=== PATIENT | female | born 1955 | race Caucasian/White ===

== ENCOUNTER 2019-12-26 11:04 | Outpatient (RCR) | payer MEDICARE, OTHER | END 2019-12-30 | LOC: PT 11:04 | PROVIDERS: ATTEND Specialist | DX: S33.5XXA Sprain of ligaments of lumbar spine, initial encounter (principal); M54.5 Low back pain; M25.552 Pain in left hip; M25.551 Pain in right hip; M25.652 Stiffness of left hip, not elsewhere classified; M25.651 Stiffness of right hip, not elsewhere classified; M62.81 Muscle weakness (generalized) ==

== ENCOUNTER 2020-01-03 10:26 | Outpatient (RCR) | payer MEDICARE, OTHER | END 2020-01-30 | LOC: PT 10:26 | PROVIDERS: ATTEND Specialist | DX: S33.5XXA Sprain of ligaments of lumbar spine, initial encounter (principal); M25.551 Pain in right hip ==

== ENCOUNTER 2020-06-21 08:05 | Observation (INO) | payer MEDICARE, OTHER ==
[2020-06-21] VITALS (7 sets, daily range): BP systolic 134–143; BP diastolic 56–67
[~2020-06-21] VITALS: Ht 160 cm; Wt 111.1 kg
--- NOTE | 2020-06-21 08:08 | NUR ---
PATIENT CALLED, SHE IS IN BATHROOM
--- NOTE | 2020-06-21 08:28 | NUR ---
DR. WALDRON EVALUATING PATIENT
[2020-06-21] MEDS ORDERED: ONDANSETRON HCL INJ 2MG/ML 2ML 2 MG/ML VIAL IV STA (08:30)
[2020-06-21] MEDS ORDERED: DICYCLOMINE HCL 20 MG/2 ML VIAL IM ONE (08:30)
[2020-06-21] MEDS ORDERED: SODIUM CHLORIDE 0.9% 1000ML 1,000 ML IV STA (08:30)
[2020-06-21] MEDS ORDERED: PANTOPRAZOLE 40 MG 10ML VIAL IV STA (08:30)
--- OUTSIDE RECORDS SUMMARY | 2020-06-21 08:43 | XMS REPORT | Continuity of Care Document ---
Author Author [facility] Organization [facility] Address 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 Operator Name Role Phone NONSTAFF PCP Unavailable Alverto WALKER, Mariela Attphys Unavailable rBie Johnston Attphys Unavailable Annabel NGUYEN, Evert Turner Attphys Jose NGUYEN, Chan Lu Attphys Darryl Diamond MD Attphys Payers Payer Name Policy Type Policy Number Effective Date Expiration Date S abilio MEDICAREMEDICARE PART A AND Bxxxxxxxx[place] 2019 00:00:00 [facility] COMMERCIAL MISCMISC MEDICARE SUPPLEMENTxxxxxxxxxx1-Pr esentCommercial xxxxxxxxxx 2019 00:00:00 [facility] Medicare A & B [id number] [facility] Miscellaneous Ppo [id number] [facility] Problems Condition Name Condition Details Condition Category Status Onset Date Resolution Date Last Treatment Date Treating Clinician Comments Source Polyp of colon Polyp of Colon Problem Active 2020-05-22 00:00:00 [facility] Hiatal hernia Hiatal Hernia Problem Active 2020-05-22 00:00:00 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 Osteopenia Osteopenia Problem Active 2019-08-28 00:00:00 [facility] Type 2 diabetes mellitus with multiple complications T ype 2 Diabetes Mellitus with Multiple Complications Problem Active 2019-03-30 00:00:00 [facility] Left side sciatica Left Side Sciatica Problem Active 2019-01-18 00:00:[address] [facility] Proteinuric nephropathy due to diabetes mellitus Prote inuric Nephropathy Due to Diabetes Mellitus Problem Active 2017-10-18 00:00:00 [facility] Migraine Migraine Problem Active 2017-10-18 00:00:00 [facility] Benign essential hypertension Benign Essential Hypertension Problem Active 2017-10-18 00:00:00 [facility] Elevated liver enzymes level Elevated Liver Enzymes Level Problem Active 2017-10-18 00:00:00 [facility] Disorder of Achilles tendon Disorder of Achilles Tendon Problem Active 2017-06-01 00:00:00 [facility] Allergies, Adverse Reactions, Alerts Allergy Name Allergy Type Status Severity Reaction(s) Onset Date Inacti ve Date Treating Clinician Comments Source Gabapentin Propensity to adverse reactions to drug Active Hallucinations 2020-04-10 00:00:00 [facility] Terbinafine Propensity to adverse reactions to drug Active Hives 2020-04-10 00:00:00 Chidi Chappell t Monosodium Glutamate Propensity to adverse reactions to drug Active Headache 2020-01-01 00:00:00 migraine [facility] Codeine Propensity to adverse reactions to drug Active GI Intolerance 2019-12-05 00:00:00 Chidi Prieto odist Codeine Allergy to substance Active [facility] MONOSODIUM GLUTAMATE Allergy to substance Active Severe Headache [facility] Gabapentin Allergy to substance Active [facility] Terbinafine Allergy to substance Active Hives [facility] Family History Family Member Diagnosis Comments Start Date Stop Date Source Natural brother Dementia [facility] Natural brother Diabetes [facility] Natural father Cancer [facility] Natural mother Cancer [facility] Natural mother Diabetes [facility] Natural mother Lymphoma [facility] Natural sister Breast cancer Chidi Belcher Social History Social Habit Start Date Stop Date Quantity Comments Source Sex Assigned [facility] Exposure to SARS-CoV-2 (event) Not sure Chidi Belcher Cigarettes smoked current (pack per day) - Reported 00:00:00 2020-05-28 00:00:00 Chidi Belcher Cigarette pack-years 2020-05-28 00:00:00 2020-05-28 00:00:00 Chidi Belcher Alcohol intake 2020-05-28 00:00:00 2020-05-28 00:00:00 Ex-drinker (fi nding) Chidi Belcher History of tobacco use 1994-12-05 00:00:00 Current smoker Chidi Belcher Smoking Status Start Date Stop Date Source Former smoker 2020-05-28 00:00:00 2020-05-28 00:00:00 Chidi Belcher Medications Ordered Medication Name Filled Medication Name Start Date Stop Da te Current Medication? Ordering Clinician Indication Dosage Frequency Signature (SIG) Comments Components Source diazePAM (Valium) 5 MG tablet 2020-05-29 00:00:00 2020-05-30 23: 59:00 No Take one tablet one hour prior to the MRI Chidi Belcher albuterol (PROAIR HFA) 90 mcg/actuation inhaler 2020-05-28 15:47:25 2020-05-28 00:00:00 No ProAir HFA 90 mcg/actuation aerosol inhaler Inhale 2 puffs 3 times a day by inhalation route for 30 days. Chidi Belcher TURMERIC ORAL 2020-05-28 15:47:25 2020-05-28 00:00:00 No QD Take by mouth daily. Chidi Belcher naproxen sodium (ALEVE) 220 mg capsule 2020-05-02 8 15:47:25 2020-05-28 00:00:00 No QD Take by mouth daily. Chidi Belcher cycloSPORINE (RESTASIS) 0.05 % ophthalmic emulsion 2020-05-28 15:47:25 2020-05-28 00:00:00 No 1[drp] Q.5D 1 drop 2 (two) times a day. Chidi Belcher SITagliptin (JANUVIA) 100 MG tablet 2020-04-10 09:50:40 Yes 100mg QD Take 100 mg by mouth daily. Chidi dong atenoloL (TENORMIN) 50 MG tablet 2020-04-10 09:50:40 Yes 50mg QD Take 50 mg by mouth daily. Chidi Belcher montelukast (SINGULAIR) 10 mg tablet 2020-04-10 09:50:40 Ye s 10mg QD Take 10 mg by mouth nightly. Chidi villar lisinopril (PRINIVIL) 10 mg tablet 2020-04-10 09:50:40 Yes 10mg QD Take 10 mg by mouth daily. Chidi Belcher hydroCHLOROthiazide (HYDRODIURIL) 12.5 MG tablet 2020-04-10 09:50:40 Yes 12.5mg QD Take 12.5 mg by mouth daily. Chidi Belcher pioglitazone (ACTOS) 45 MG tablet 2020-04-10 09:50:40 Yes 45mg QD Take 45 mg by mouth daily. Chidi Belcher fluticasone propionate (FLONASE) 50 mcg/actuation nasal spra y 2020-04-10 09:50:40 Yes Q.5D 2 (two) times a day. Chidi Belcher SUMAtriptan (IMITREX) 100 MG tablet 2020-04-10 09:50:40 Yes sumatriptan 100 mg tablet TAKE 1 TABLET BY MOUTH FOR HEADACHE. TAKE SECOND TABLET 2 HOURS AFTER FIRST DOSE IF HEADACHE PERSISTS. MAX OF 2 TABLETS IN 24 HOUR PERIOD, AND MAX OF 4 TABLETS IN ONE MONTH Chidi Belcher bimatoprost (LUMIGAN) 0.01 % ophthalmic drops 2020-04-10 09:50:4 0 Yes QD nightly. Chidi moses omeprazole (PriLOSEC) 20 MG capsule 2020-04-10 09:50:40 Yes 20mg QD Take 20 mg by mouth daily. Chidi Belcher multivitamin with minerals tablet 2020-04-10 09:50:40 Yes 1{tbl} QD Take 1 tablet by mouth daily. Chidi christy FISH OIL-DHA-EPA ORAL 2020-04-10 09:50:40 Yes QD Take by mouth daily. Chidi Belcher calcium carbonate (CALTRATE 600 ORAL) 2020-04-10 09:50:40 Y es QD Take by mouth daily. Chidi Belcher cholecalciferol, vitamin D3, 1,000 unit tablet 2020-04-10 09:50: 40 Yes 1000U QD Take 1,000 Units by mouth daily. Chidi Belcher vitamin B complex (B COMPLEX ORAL) 2020-04-10 09:50:40 Yes QD Take by mouth daily. Chidi Belcher ginkgo biloba 60 mg capsule 2020-04-10 09:50:40 Yes QD Take by mouth daily. Chidi Belcher aspirin (ECOTRIN) 81 MG enteric coated tablet 2020-04-10 09:49:2 7 Yes 81mg QD Take 81 mg by mouth nightly. Chidi Belcher aspirin 81 mg poevery other day with food aspirin 81 m g poevery other day with food No aspirin 81 mg poevery other day with food [facility] atenolol 50 mg tablet Take 1 tablet by mouth once mary ellen y atenolol 50 mg tablet Take 1 tablet by mouth once daily No atenolol 50 mg tablet Take 1 tablet by mouth once daily [facility] Practice B Complex 1 po qd B Complex 1 po qd No B Co mplex [address] [facility] diphenoxylate-atropine 2.5 mg-0.025 mg t ablet Take 1 tablet 3 times a day by oral route for 5 days. diphenoxylate-atropine 2.5 mg-0.025 mg t ablet Take 1 tablet 3 times a day by oral route for 5 days. No diphenoxylate- atropine 2.5 mg-0.025 mg tablet Take 1 tablet 3 times a day by oral route [facility] [address] [facility]ionate 50 mcg/actuation nasal spray,suspension USE 1 SPRAY(S) IN EACH NOSTRIL TWICE DAILY FOR 90 DAYS fluticasone propionate 50 mcg/actuation nasal spray,suspension USE 1 SPRAY(S) IN EACH NOSTRIL TWICE DAILY FOR 90 DAYS No fluticasone pr opionate 50 mcg/actuation nasal spray,suspension USE 1 SPRAY(S) IN EACH NOSTRIL TWICE DAILY FOR [address] [facility] Ginkoba 1 po qd Ginkoba 1 po qd No Ginkoba [address] [facility] hydrochlorothiazide 12.5 mg capsule Take 1 capsule ashvin ry day by oral route. hydrochlorothiazide 12.5 mg capsule Take 1 capsule every day by oral route. No hydrochlorothia zide 12.5 mg capsule Take 1 capsule every day by oral route. [facility] mg tablet Take 1 tablet every day by oral route. Januvia 100 mg tablet Take 1 tablet every day by oral route. No Januvia 100 mg tablet Take 1 tablet every day by oral route. [facility] lisinopril 10 mg tablet Take 1 tablet every day by ora l route. lisinopril 10 mg tablet Take 1 tablet every day by oral route. No lisinopril 10 mg tablet Take 1 tablet every day by oral route. [facility] Lumigan 0.01 % eye drops daily Lumigan 0.01 % eye drops daily No Lumigan 0.01 % eye drops daily [facility] montelukast 10 mg tablet TAKE 1 TABLET BY MOUTH ONCE D AILY IN THE EVENING montelukast 10 mg tablet TAKE 1 TABLET BY MOUTH ONCE DAILY IN THE EVENING No montelukast 10 mg tablet TAKE 1 TABLET BY MOUTH ONCE DAILY IN THE EVENING [facility] [place] 3 1000 qd [place] 3 1000 qd No [place] [address] [facility] ondansetron 4 mg disintegrating tablet ondansetron 4 mg disinteg rating tablet No ondansetron [address] [facility] One-A-Day Womens Formula 1 po qd One-A-Day Womens Formula 1 po qd No One-A-Day Womens Formula [address] [facility] pantoprazole 40 mg tablet,delayed releas e Take 1 tablet every day by oral route for 90 days. pantoprazole 40 mg tablet,delayed releas e Take 1 tablet every day by oral route for 90 days. No 1 Q1D pantoprazole 40 mg tablet,delayed release Take 1 tablet every day by oral route for [address] [facility] pioglitazone 45 mg tablet Take 1 tablet every day by o ral route. pioglitazone 45 mg tablet Take 1 tablet every day by oral route. No pioglitazone 45 mg tablet Take 1 tablet every day by oral route. [facility] Restasis 0.05 % eye drops in a dropperette twice daily Restasis 0.05 % eye drops in a dropperette twice daily No Restasis 0.05 % eye drops in a dropperette twice daily [facility] celia sumatriptan 100 mg tablet TAKE 1 TABLET BY MOUTH FOR HEADACHE. TAKE SECOND TABLET 2 HOURS AFTER FIRST DOSE IF HEADACHE PERSISTS. MAX OF 2 TABLETS IN 24 HOUR PERIOD, AND MAX OF 4 TABLETS IN ONE MONTH sumatriptan 100 mg tablet TAKE 1 TABLET BY MOUTH FOR HEADACHE. TAKE SECOND TABLET 2 HOURS AFTER FIRST DOSE IF HEADACHE PERSISTS. MAX OF 2 TABLETS IN 24 HOUR PERIOD, AND MAX OF 4 TABLETS IN ONE MONTH No sumatriptan 10 0 mg tablet TAKE 1 TABLET BY MOUTH FOR HEADACHE. TAKE SECOND TABLET 2 HOURS AFTER FIRST DOSE IF HEADACHE PERSISTS. MAX OF 2 TABLETS IN 24 HOUR PERIOD, AND MAX OF 4 TABLETS IN ONE MONTH [facility] Suprep Bowel Prep Kit 17.5 gram-3.13 gram-1.6 gram ora l solution Suprep Bowel Prep Kit 17.5 gram-3.13 gram-1.6 gram oral solution No Suprep Bowel Prep Kit 17.5 gram-3.13 gram-1.[address] [facility] terbinafine HCl 250 mg tablet terbinafine HCl 250 mg tablet No terbinafine HCl 250 mg tablet [facility] turmeric 1 po qd turmeric 1 po qd No turmer ic [address] [facility] Valium 10 mg tablet Take 1 hour prior to the test Hector um 10 mg tablet Take 1 hour prior to the test No V alium 10 mg tablet Take 1 hour prior to the test [facility] Immun[facility] Ordered Immunization Name Filled Immunization Name Date Status Comments Source pneumococcal conjugate PCV 13 pneumococcal conjugate PCV 13 2016 18:33:[address] [facility] Vital Signs Vital Name Observation Time Observation Value Comments Source Height 2020-06-04 00:00:00 63 [in_i] [facility] Height 2020-04-04 00:00:00 63 [in_i] [facility] Height 2020-02-03 00:00:00 63 [in_i] [facility] BP Diastolic 2019-11-22 00:00:00 84 mm[Hg] [facility] Height 2019-11-22 00:00:00 63 [in_i] [facility] BMI (Body Mass Index) 2019-11-22 00:00:00 45.9 kg/m2 [facility] BP Systolic 2019-11-22 00:00:00 134 mm[Hg] [facility] Body Weight 2019-11-22 00:00:00 259 [lb_av] [facility] BP Diastolic 2019-07-19 00:00:00 80 mm[Hg] [facility] Height 2019-07-19 00:00:00 63 [in_i] [facility] BMI (Body Mass Index) 2019-07-19 00:00:00 45.2 kg/m2 [facility] BP Systolic 2019-07-19 00:00:00 130 mm[Hg] [facility] Body Weight 2019-07-19 00:00:00 255 [lb_av] [facility] BP Diastolic 2019-06-30 00:00:00 74 mm[Hg] [facility] Height 2019-06-30 00:00:00 63 [in_i] [facility] BMI (Body Mass Index) 2019-06-30 00:00:00 45.3 kg/m2 [facility] BP Systolic 2019-06-30 00:00:00 140 mm[Hg] [facility] Body Weight 2019-06-30 00:00:00 256 [lb_av] [facility] BP Diastolic 2019-04-21 00:00:00 82 mm[Hg] [facility] Height 2019-04-21 00:00:00 63 [in_i] [facility] BMI (Body Mass Index) 2019-04-21 00:00:00 45 kg/m2 [facility] BP Systolic 2019-04-21 00:00:00 130 mm[Hg] [facility] Body Weight 2019-04-21 00:00:00 254 [lb_av] [facility] BP Diastolic 2019-03-30 00:00:00 70 mm[Hg] [facility] Height 2019-03-30 00:00:00 63 [in_i] [facility] BMI (Body Mass Index) 2019-03-30 00:00:00 44.5 kg/m2 [facility] BP Systolic 2019-03-30 00:00:00 130 mm[Hg] [facility] Body Weight 2019-03-30 00:00:00 251 [lb_av] [facility] BP Diastolic 2019-02-08 00:00:00 72 mm[Hg] [facility] Height 2019-02-08 00:00:00 63 [in_i] [facility] BMI (Body Mass Index) 2019-02-08 00:00:00 43.6 kg/m2 [facility] BP Systolic 2019-02-08 00:00:00 130 mm[Hg] [facility] Body Weight 2019-02-08 00:00:00 246 [lb_av] [facility] BP Diastolic 2019-02-01 00:00:00 78 mm[Hg] [facility] Height 2019-02-01 00:00:00 63 [in_i] [facility] BMI (Body Mass Index) 2019-02-01 00:00:00 43.8 kg/m2 [facility] BP Systolic 2019-02-01 00:00:00 122 mm[Hg] [facility] Body Weight 2019-02-01 00:00:00 247 [lb_av] [facility] BP Diastolic 2019-01-17 00:00:00 94 mm[Hg] [facility] Height 2019-01-17 00:00:00 63 [in_i] [facility] BMI (Body Mass Index) 2019-01-17 00:00:00 43.6 kg/m2 [facility] BP Systolic 2019-01-17 00:00:00 152 mm[Hg] [facility] Body Weight 2019-01-17 00:00:00 246 [lb_av] [facility] Body height 2020-05-28 15:45:00 160 cm [facility] Body weight 2020-05-28 15:45:00 113.399 kg [facility] BMI 2020-05-28 15:45:00 44.29 kg/m2 [facility] Systolic blood pressure 2020-01-01 13:43:00 118 mm[Hg] [facility] Diastolic blood pressure 2020-01-01 13:43:00 57 mm[Hg] [facility] Heart rate 2020-01-01 13:43:00 56 /min [facility] Body temperature 2020-01-01 13:43:00 36.56 [place] [facility] Respiratory rate 2020-01-01 13:43:00 20 /min [place] [facility] Oxygen saturation in Arterial blood by Pulse oximetry 12-31 13:43:00 97 /min [facility] BP Diastolic 2018-02-02 00:00:00 84 mm[Hg] [facility] Height 2018-02-02 00:00:00 63 [in_i] [facility] BMI (Body Mass Index) 2018-02-02 00:00:00 44.1 kg/m2 [facility] BP Systolic 2018-02-02 00:00:00 132 mm[Hg] [facility] Body Weight 2018-02-02 00:00:00 249 [lb_av] [facility] BP Diastolic 2018-01-19 00:00:00 80 mm[Hg] [facility] Height 2018-01-19 00:00:00 63 [in_i] [facility] BMI (Body Mass Index) 2018-01-19 00:00:00 44.1 kg/m2 [facility] BP Systolic 2018-01-19 00:00:00 138 mm[Hg] [facility] Body Weight 2018-01-19 00:00:00 249 [lb_av] [facility] BP Diastolic 2017-10-18 00:00:00 110 mm[Hg] [facility] Height 2017-10-18 00:00:00 63 [in_i] [facility] BMI (Body Mass Index) 2017-10-18 00:00:00 40.2 kg/m2 [facility] BP Systolic 2017-10-18 00:00:00 164 mm[Hg] [facility] Body Weight 2017-10-18 00:00:00 227 [lb_av] [facility] Procedures Procedure Date / Time Performed Performing Clinician Sourc e XR CERVICAL SPINE COMPLETE 2020-05-28 16:03:31 Johnny Matthews [facility] XR SHOULDER 2+ VW RIGHT 2020-05-28 16:03:15 Johnny Matthews [facility] Egd 2020-05-22 00:00:00 [facility] XR LUMBAR SPINE 2 OR 3 VW 2020-04-10 10:42:53 Aly Garcia [facility] XR HIP 2-3 VIEWS LEFT 2020-04-10 09:42:57 Aly Garcia Anabela ston [facility]ist XR CHEST 2 VW 2020-01-01 15:32:41 Held, Muriel [facility] ECG PRE/POST OP 2020-01-01 14:40:14 Held, Muriel [facility] CBC HEMOGRAM 2020-01-01 14:11:00 Held, Muriel [facility] BASIC METABOLIC PANEL 2020-01-01 14:11:00 Held, Muriel heller [facility]ist PARTIAL THROMBOPLASTIN TIME (PTT) 2020-01-01 14:11:00 Held, Lola Markhamist PROTHROMBIN TIME WITH INR 2020-01-01 14:11:00 Held, Muriel manuel Tao[facility] TYPE AND SCREEN 2020-01-01 14:11:00 Held, Muriel [facility] HEMOGLOBIN A1C 2020-01-01 14:11:00 Keara Blount [facility] ESTIMATED GFR 2020-01-01 14:11:00 Held, Muriel [facility] US PELVIC TRANSABDOMINAL 2019-12-08 09:44:16 Held, Muriel holliston Taoist US PELVIC TRANSVAGINAL 2019-12-08 09:44:16 Held, Muriel de guzman [facility]ist SURGICAL PATHOLOGY REQUEST 2019-12-05 14:16:00 Held, Muriel Belcher PAP IG (IMAGE GUIDED) 2019-12-05 14:14:00 Held, Muriel Huertas on [facility]ist OCCULT BLOOD, STOOL 2019-12-05 09:51:00 Held, Muriel Belcher [place] BIOPSY OF UTERUS LINING 2019-12-05 08:30:00 Held, Muriel Belcher US, upper arm 2019-11-22 00:00:00 [facility] US, chest wall 2019-11-22 00:00:00 [facility] MAMMO, screening, digital, bilateral 2019-06-30 00:00:00 [facility] bone density 2019-06-30 00:00:00 [facility] electrocardiogram 2019-04-21 00:00:00 [facility] MAMMO, screening, bilateral 2019-01-17 00:00:00 [facility] electrocardiogram 2018-01-19 00:00:00 [facility] MAMMO, screening, bilateral 2017-06-17 00:00:00 [facility] X-RAY OF ANKLE 3+ VIEW 2017-05-03 00:00:00 Puma llanes [facility] Eye Surgery 2009-11-01 00:00:00 [facility] Orthopedic Surgery 1988-11-01 00:00:00 [facility] Cervical Laminoplsty 2/> Seg Elma dottie [facility] Hemorrhoidectomy [facility] Appendectomy [facility] ractice Cholecystectomy [facility] ractice Appendectomy [facility] ractice Cholecystectomy (Gall Bladder Removal) [facility] Colonoscopy & Polypectomy [facility] Plan of Care Planned Activity Planned Date Details Comments Source Future Scheduled Test 2020-08-01 00:00:00 INFLUENZA VACCINE [code = INFLUENZA VACCINE] [facility] Future Scheduled Test 2019 00:00:00 65+ PNEUMOCOCCAL V ACCINE (2 of 2 - PPSV23) [code = 65+ PNEUMOCOCCAL VACCINE (2 of 2 - PPSV23)] [facility] Future Scheduled Test 2017-04-01 00:00:00 BREAST CANCER SCRE ENING [code = BREAST CANCER SCREENING] [facility] Future Scheduled Test 2004 00:00:00 COLONOSCOPY SCREEN ING [code = COLONOSCOPY SCREENING] [facility] Future Scheduled Test 2004 00:00:00 SHINGLES VACCINES (#1) [code = SHINGLES VACCINES (#1)] [facility] Scheduled Test 1964 00:00:00 DIABETIC FOOT EXAM [code = DIABETIC FOOT EXAM] [facility] Scheduled Test 1964 00:00:00 URINE MICROALBUMIN [code = URINE MICROALBUMIN] [facility] Scheduled Test 1954 00:00:00 DIABETIC RETINAL E YE EXAM [code = DIABETIC RETINAL EYE EXAM] [facility] Appointment 2020-08-08 07:30:00 Muriel Diamond MD, [address], [place] [address] [facility] Appointment 2020-08-08 07:30:00 Muriel Diamond MD, [address], [place] [address] [facility] Encounters Start Date/Time End Date/Time Encounter Type Admission Type Attendi [facility] Care Department Encounter ID Source 2020-06-04 00:00:00 2020-06-04 00:00:00 Masoud white MD: [id number], [address], [place] [address], Ph. [facility] - VM_HOU_Hob [id number] [facility] 2020-05-28 00:00:00 2020-05-28 00:00:00 Outpatient JOHNNY MATTHEWS [facility] [id number] [facility] 2020-05-28 00:00:00 2020-05-28 00:00:00 Outpatient JOHNNY MATTHEWS [facility] [id number] [facility] 2020-05-28 00:00:00 2020-05-28 00:00:00 Outpatient JOHNNY MATTHEWS [facility] [id number] [facility] 2020-04-10 00:00:00 2020-04-10 00:00:00 Outpatient ALY GARCIA [facility] [id number] [facility] 2020-04-10 00:00:00 2020-04-10 00:00:00 Outpatient ALY GARCIA [facility] [id number] [facility] 2020-04-10 00:00:00 2020-04-10 00:00:00 Outpatient JOHNNY MATTHEWS [facility] [id number] [facility] 2020-04-04 00:00:00 2020-04-04 00:00:00 Masoud white MD: [id number], [facility] [address], [place] [address], Ph. [facility] - VM_HOU_Hobby [id number] [facility] 2020-02-03 00:00:00 2020-02-03 00:00:00 Shravan Fields: [address] [facility], [address], [place] [address], Ph. [facility] - VM[facility]HOU[facility] [id number] [facility] ice 2020-01-03 10:26:00 2020-01-30 23:59:00 Discharged Recurring [facility] [id number] [facility] 2020-01-01 00:00:00 2020-01-01 00:00:00 Outpatient HELD, [facility] [id number] [facility] 2020-01-01 00:00:00 2020-01-01 00:00:00 Outpatient HELD, [facility] [id number] [facility] 2020-01-01 00:00:00 2020-01-01 00:00:00 Outpatient HELD, [facility] [id number] [facility] 2019-12-26 11:04:00 2019-12-30 23:59:00 Discharged Recurring [facility] [id number] [facility] 2019-12-08 00:00:00 2019-12-08 00:00:00 Outpatient HELD, [facility] [id number] [facility] 2019-11-22 00:00:00 2019-11-22 00:00:00 Masodu white MD: [address], [address], [place] [address], Ph. [facility] - VM_HOU_Hobby [id number] [facility] 2019-07-19 00:00:00 2019-07-19 00:00:00 Masoud white MD: [address], [address], [place] [address], Ph. [facility] - [facility] - VFP-Hobby [id number] [facility] Practice 2019-06-30 00:00:00 2019-06-30 00:00:00 Masoud white MD: [address], [address], [place] [address], Ph. [facility] [id number] [facility] 2019-04-21 00:00:00 2019-04-21 00:00:00 Masoud white MD: [address], [address], [place] [address], Ph. [facility] [id number] [facility] 2019-03-30 00:00:00 2019-03-30 00:00:00 Masoud white MD: [address], [address], [place] [address], Ph. [facility] [id number] [facility] 2019-02-08 00:00:00 2019-02-08 00:00:00 Masoud white MD: [address], [place] [address], Ph. [facility] [id number] [facility] 2019-02-01 00:00:00 2019-02-01 00:00:00 Masoud white MD: [address], [place] [address], Ph. [facility] [id number] [facility] 2019-01-17 00:00:00 2019-01-17 00:00:00 Masoud white MD: [address], [address], [place] [address], Ph. [facility] [id number] [facility] 2018-02-02 00:00:00 2018-02-02 00:00:00 Masoud white MD: [address], [address], [place] [address], Ph. [facility] [id number] [facility] 2018-01-19 00:00:00 2018-01-19 00:00:00 Masoud white MD: [address] [address], Ph. [facility] [id number] [facility] 2017-10-18 00:00:00 2017-10-18 00:00:00 Masoud white MD: [address], [address], [place] [address], Ph. [facility] [id number] [facility] Results Test Description Test Time Test Comments Results Result Comments Source ECG Pre/Post Op 2020-01-02 08:13:06 Test Item Ventricular rate (test code = 253) 54 Atrial rate (test code = 255) 54 WV interval (test code = 266) 128 QRSD interval (test code = 260) 92 QT interval (test code = 264) 452 QTC interval (test code = 265) 428 P axis 1 (test code = 267) 40 QRS axis 1 (test code = 268) 43 T wave axis (test code = 270) 26 EKG impression (test code = 273) Sinus bradycardia-Oth erwise normal ECG-No previous ECGs available- Chidi MethodistType and [id number] 17:52:00* Test Item Value Reference Range Interpretation Comments ABO grouping (test code = 883-9) O Rh type (test code = 82910-4) POS Antibody screen (gel) (test code = 890-4) NEG Rhine MethodistBasic metabolic [id number] 16:08:36* Test Item Value Reference Range Interpretation Comments Sodium (test code = 2951-2) 140 135- 148 mEq/L Potassium (test code = 2823-3) 3.8 3.5- 5.0 mEq/L Chloride (test code = 2075-0) 99 98- 112 mEq/L CO2 (test code = 2028-9) 27 24- 31 mEq/L Anion gap (test code = 38828-7) 14@ANIO 7- 15 mEq/L BUN (test code = 3094-0) 17 mg/dL 8-23 Creatinine (test code = 2160-0) 0.82 mg/dL 0.5-0.9 Glucose (test code = 2345-7) 127 mg/dL 65-99 H Calcium (test code = 91000-6) 9.4 mg/dL 8.8-10.2 Lab Interpretation (test code = 64681-9) Abnormal Rhine MethodistEstimated [id number] 16:08:35* Test Item Value Reference Range Interpretation Comments Estimated GFR (test code = 5488) 75 mL/min/1.73 m2 Catergory Units InterpretationG1 >=90 Normal or highG2 60-89 Mildly jsmdltnanP0k 45-59 Mildly to moderately gpuorhstpC8d 30-44 Moderately to severely decreasedG4 15-29 Severely decreasedG5 <15 Kidney failureThe eGFR was calculated using the Chronic Kidney Disease Epidemiology Collaboration (CKD-EPI) equation. Interpretation is based on recommendations of the National Kidney Foundation-Kidney Disease Outcomes Quality Initiative (NKF-KDOQI) published in 2014. Rhine MethodistHemoglobin [id number] 16:03:20* Test Item Value Reference Range Interpretation Comments Hemoglobin A1C (test code = 27345-2) 5.7 % 4-5.6 H HbA1c cutoffs for diagnosing diabetes:4.0% - 5.6% = normal5.7% - 6.4% = increased risk for diabetes (prediabetes)9>=6.5% = iwzhoxac7Nnfbz for glycemic control (ADA 2016)< 7.0% Target for non adults with diabetes. More or less stringent targets may be appropriate for individual patients. <7.5% Target for Children and adolescents with type 1 diabetes. Lab Interpretation (test code = 71342-8) Abnormal Rhine MethodistPartial thromboplastin time, jwgmmewaj2208-18-36 16:02:08* Test Item Value Reference Range Interpretation Comments PTT (test code = 57747-0) 37.5 23.0- 36.0 sec H PTT therapeutic range for unfractionated heparin is61.0-112.0 seconds which corresponds to Anti-Xa0.3-0.7 U/ml. Lab Interpretation (test code = 90534-0) Abnormal Rhine MethodistProthrombin time with [id number] 16:01:50* Test Item Value Reference Range Interpretation Comments Prothrombin time (test code = 5902-2) 13.9 11.5- 14.5 sec INR (test code = 81796-2) 1.1 Th e International Normalized Ratio (INR) is a therapeutic monitoring tool for patients who are stable on oral anticoagulant therapy. An INR of 2.0-3.0 is suggested for deep vein thrombosis/pulmonary embolism. [facility]CBC wasmrkxx9300-18-74 15:38:48* Test Item Value Reference Range Interpretation Comments WBC (test code = 19073-1) 6.51 4.50- 11.00 k/uL RBC (test code = 03839-7) 4.41 m/uL 4.2-5.5 HGB (test code = 718-7) 13.4 g/dL 12-16 HCT (test code = 4544-3) 42.2 % 37-47 MCV (test code = 787-2) 95.7 fL 82-100 MCH (test code = 785-6) 30.4 pg 27-34 MCHC (test code = 786-4) 31.8 g/dL 31-37 RDW - SD (test code = 44046-2) 48.1 fL 37-55 MPV (test code = 86121-9) 11.4 fL 8.8-13.2 Platelet count (test code = 10319-1) 226 150- 400 k/uL Nucleated RBC (test code = 87743-2) 0.00 /100 WBC Rhine MethodistXR Chest 2 [id number] 15:36:19Hm Interface, Radiology Results - 01/01/2020 3:39 PM CSTEXAMINATION: XR CHEST 2 VWCLINICAL HISTORY: 64 years Female Z01.818 Encounter for other preprocedural examination, PREOPCOMPARISON: October 29IMPRESSION:Cardiomediastinal silhouette is unchanged. Atelectasis in the lung bases Age related changes in the osseous structures. Old healed right posterior rib fractures. [facility]-[id number] MethodistPap IG (Image Guided)2019-12-08 17:08:00* Test Item Value Reference Range Interpretation Comments Diagnosis (test code = 70195-8) Comment NEGATIVE FOR INTRAEPITHELIAL LESION OR MALIGNANCY.THIS SPECIMEN WAS RESCREENED PART OF OUR DRY CLEANER HAND PROGRAM. Specimen adequacy (test code = 25844-8) Comment Satisfactory for evaluation. Endocervical component may not bedistinguished in cases of atrophy. Performed by: (test code = 90332-3) Comment Nela Bangura, Rn Immunology ([facility] [place] QC reviewed by: (test code = 8320904) Comment Ana Mccarty, Rn Immunology ([facility] [place]) Comment (test code = 95021-3) . Note: (test code = 2521234) Comment The Pap smear is a screening test designed to aid in the detection ofpremalignant and malignant conditions of the uterine cervix. It is not adiagnostic procedure and should not be used as the sole means of detectingcervical cancer. Both false-positive and false-negative reports do occur. Test methodology (test code = 86275-8) Comment This liquid based ThinPrep(R) pap test was screened with theuse of an image guided system. DEEPIKA (test code = DEEPIKA) Performed at: - [address] [id number] Director: Ethan Rico MD, Phone: [phone] at: - [facility] [address] [place] [id number] Director: Ethan Rico MD, Phone: [phone] Comment: Source.............Cervix;EndocervixSpecimen Comment: No. of containers..01 ThinPrep Vial Rhine MethodistUS Pelvic Rwomkdchihvn8051-17-98 12:36:59Hm Interface, Radiology Results - 12/08/2019 12:40 PM CSTEXAMINATION: US PELVIC TRANSABDOMINAL, US PELVIC TRANSVAGINALCLINICAL HISTORY: N95.0 Postmenopausal bleeding, pmb crampingCOMPARISON: None.TECHNIQUE:Transabdominal and endovaginal sonographic images of the pelvis were obtained. Grayscale, color Doppler, and spectral waveform analysis of the ovarian vessels was performed.FINDINGS:The uterus measures 10.5 x 3.0 x 4.8 cm. The uterus is anteflexed.The endometrial stripe measures 6 mm. Patient is status post bilateral oophorectomy. No suspic ious adnexal masses are seen.There is no fluid in the pelvic cul-de-sac.Impressi on:Mild thickening of the endometrial stripe, which measures 6 mm. In the settin g of postmenopausal bleeding, endometrial biopsy is advised.[id number] ed and approved by rn residential/fellow: Nain bAdi, Misa laureano MD, personally reviewed the images and resident's/fellow's findings and agre e with the final report.[place] MethodistUS Pelvic Wqhflawsumiqtf0262-74-44 12:36:59Hm Interface, Radiology Results - 12/08/2019 12:40 PM CSTEXAMINATION: US PELVIC TRANSABDOMINAL, US PELVIC TRANSVAGINALCLINICAL HISTORY: N95.0 Postmenopausal bleeding, pmb crampingCOMPARISON: None.TECHNIQUE:Transabdominal and endovaginal sonographic images of the pelvis were obtained. Grayscale, color Doppler, and spectral waveform analysis of the ovarian vessels was performed.FINDINGS:The uterus measures 10.5 x 3.0 x 4.8 cm. The uterus is anteflexed.The endometrial stripe measures 6 mm. Patient is status post bilateral oophorectomy. No suspicious adnexal masses are seen.There is no fluid in the pelvic cul-de-sac.Impression:Mild thickening of the endometrial stripe, which measures 6 mm. In the setting of postmenopausal bleeding, endometrial biopsy is advised.[id number] and approved by rn residential/fellow: Nain Abdi, Msia Corea MD, personally reviewed the images and resident's/fellow's findings and agree with the final report. Rhine MethodistOccult blood, [id number] 16:09:00* Test Item Value Reference Range Interpretation Comments Occult blood, stool (test code = 82994-7) Negative Negative DEEPIKA (test code = DEEPIKA) Performed at: - [facility] [address] [id number] Director: Ethan Rico MD, Phone: [phone] Rhine MethodistSurgical pathology [id number] 14:10:00* Test Item Value Reference Range Interpretation Comments Material Submitted (test code = 86984-5) Comment Material submitted: .endometrium - EMB Diagnosis (test code = 62080-4) Comment Diagnosis: SCANT BENIGN ENDOCERVICAL GLANDS AND SQUAMOUS EPITHELIUM.- RARE STRIPS OF ATROPHIC ENDOMETRIAL EPITHELIUM, INSUFFICIENTFOR EVALUATION.O 12/06/2019 1154 Local Electronically signed by: (test code = 20195-9) Comment Electronically signed: .Tanvi Pérez MD, Pathologist Gross description: (test code = 62144-5) Comment Gross description: .1 Container, formalin-filled, labeled with patient identification.EMB:Received in formalin is a 0.2 x 0.1 x 0.1 cm aggregate of mucus andsoft tissue. The specimen is filtered and entirely submitted in P1makxbimr. Minute specimen, may not survive processing./S 12/06/2019 1154 Local CPT: (test code = 32119-1) Comment C PT .047126 DEEPIKA (test code = DEEPIKA) Performed at: [facility] [address] [id number] Director: tEhan Rico MD, Phone: [phone] Rhine MethodistEndometrial mlnzbb4049-29-03 08:30:00Muriel Diamond MD 12/05/2019 2:18 PMEndometrial biopsyDate/Time: 12/05/2019 2:18 PMPerformed by: Muriel Diamond MDAuthorized by: Muriel Diamond MD Consent: Consent obtained: Verbal Consent given by: Patient Procedural risks discussed: Bleeding, failure rate and repeat procedure Patient questions answered: yes Patient agrees, verbalizes understanding, and wants to proceed: yes Indication: Indications: Post-menopausal bleeding Pre-procedure: Prepped with: Betadine Procedure: Procedure performed: Endometrial biopsy Procedure details: endometrial biopsy with Pipelle A bivalve speculum was placed in the vagina: yes Cervix cleaned and prepped: yes Tenaculum applied to cervix: yes Cervix dilated: no Specimen collected: specimen collected and sent to pathology Findings: NormalPost-procedure: Patient observed: yes No com plications: yes Post procedure instructions given to patient: yes Nothing in vagina for 2 weeks: yes Patient tolerated procedure well with no complicat ions: yes Chidi MethodistUrinalysis macro (dipstick) panel - [id number] 12:54:00* Test Item Value Reference Range Interpretation Comments Color Color (test code = Color Color) yellow Color Appearance (test code = Color Appearance) clear Color Glucose (test code = Color Glucose) negative Color Bilirubin (test code = Color Bilirubin) negative Color Ketones (test code = Color Ketones) negative Color Specific [place] (test code = Color Specific [place]) 1.025 Color Blood (test code = Color Blood) trace Color PH (test code = Color PH) 6.0 Color Protein (test code = Color Protein) negative Color Urobilinogen (test code = Color Urobilinogen) 0.2 Color Nitrites (test code = Color Nitrites) negative Color Leukocytes (test code = Color Leukocytes) trace [facility] CAD [id number] 10:20:44 - SCR MAMM BILATERAL DAVI CAD DIGITALBILATERAL DIGITAL SCREENING MAMMOGRAM 3D/2D WITH CAD: 08/15/2019CLINICAL: Asymptomatic. Digital breast tomosynthesis was performed in addition to routine CC and MLO views. Current mammographic images were evaluated by either a ralali M-Vu or a Genmab ImageChecker CAD (computer a ided detection system). Comparison is made to exams dated 06/08/2012 mammogram, 05/30/2012 mammogram, and 05/20/2012 mammogram - [facility]. There a re scattered fibroglandular tissues in both breasts. There are benign calcifica tions in both breasts. There also is a biopsy clip in the right breast. No janice picious mass, architectural distortion, malignant type calcification, or lymph n ode abnormality detected. Breast architecture is stable compared to prior exams .IMPRESSION: BENIGNThere is no mammographic evidence of malignancy. Resume annua l screening mammography in one year. Donna lindsay/penrad:08/02 10:20:44 Entry: - 08/28/2019 14:23:52Imaging Technologist: Dilia OSEI, [facility]-FWletter sent: BIRADS 1-2 Normal Mammogram BI-RADS: 2 Benignvisual [id number] 12:12:00* Test Item Value Reference Range Interpretation Comments R Eye Uncorrected (test code = R Eye Uncorrected) 20/40 L Eye Uncorrected (test code = L Eye Uncorrected) 20/40 [facility] [id number] 15:12:00* Test Item Value Reference Range Interpretation Comments Rate & Rhythm (test code = Rate & Rhythm) 61/ min , rrr QRS (test code = QRS) WV Interval (test code = WV Interval) QRS Duration (test code = QRS Duration) QT Interval (test code = QT Interval) [facility] HospitalUrinalysis macro (dipstick) panel - [id number] 17:31:00Color ColorColor AppearanceColor GlucoseVillage [facility]view Hospital RandalliaGlucose [Mass/volume] in Capillary [id number] 16:44:00* Test Item Value Reference Range Interpretation Comments Blood Glucose: mg/dl (test code = Blood Glucose: mg/dl) 82 [facility] HospitalGlucose [Mass/volume] in Capillary [id number] 16:44:00* Test Item Value Reference Range Interpretation Comments Blood Glucose: mg/dl (test code = Blood Glucose: mg/dl) 82 [facility] HospitalGlucose [Mass/volume] in Capillary [id number] 15:16:00* Test Item Value Reference Range Interpretation Comments Blood Glucose: mg/dl (test code = Blood Glucose: mg/dl) 367 [facility] Hospitalrapid strep group A, [id number] 15:15:00* Test Item Value Reference Range Interpretation Comments Strep (test code = Strep) negative [facility]2019-03-24 22:59:00* Test Item Value Reference Range Interpretation Comments SPIROMETRY: (test code = SPIROMETRY:) PRE FEV1: (test code = FEV1:) FVC: (test code = FVC:) RESTRICTION: (test code = RESTRICTION:) MILD (FVC 65-80% predicted) OBSTRUCTION: (test code = OBSTRUCTION:) NOTES: (test code = NOTES:) [facility]2019-03-24 22:59:00* Test Item Value Reference Range Interpretation Comments SPIROMETRY: (test code = SPIROMETRY:) PRE FEV1: (test code = FEV1:) FVC: (test code = FVC:) RESTRICTION: (test code = RESTRICTION:) MILD (FVC 65-80% predicted) OBSTRUCTION: (test code = OBSTRUCTION:) NOTES: (test code = NOTES:) [facility]Microalbumin/Creatinine [Mass Ratio] in [id number] 15:09:00* Test Item Value Reference Range Interpretation Comments creatinine, random urine (test code = creatinine, random uri ne) 100 mg/dL 20-275 Protein [Mass/volume] in Urine (test code = 2888-6) 0.7 mg/dL se e note: microalbumin/creatinine ratio, random ur ine (test code = microalbumin/creatinine ratio, random urine) 7 mcg/mg creat <30 [facility] HospitalMicroalbumin/Creatinine [Mass Ratio] in [id number] 15:09:00* Test Item Value Reference Range Interpretation Comments creatinine, random urine (test code = creatinine, random uri ne) 100 mg/dL 20-275 Protein [Mass/volume] in Urine (test code = 2888-6) 0.7 mg/dL se e note: microalbumin/creatinine ratio, random ur ine (test code = microalbumin/creatinine ratio, random urine) 7 mcg/mg creat <30 [facility] HospitalHemoglobin A1c/Hemoglobin.total in [id number] 08:16:00* Test Item Value Reference Range Interpretation Comments Hemoglobin A1c/Hemoglobin.total in Blood (test code = 4548-4) 9.3 % of total HGB <5.7 H EAG (mg/dL) (test code = EAG (mg/dL)) 220 (calc) EAG (mmol/L) (test code = EAG (mmol/L)) 12.2 (calc) [facility] panel - Serum or [id number] 08:16:00* Test Item Value Reference Range Interpretation Comments cholesterol, total (test code = cholesterol, total) 158 mg/dL <2 00 HDL cholesterol (test code = HDL cholesterol) 55 mg/dL >50 triglycerides (test code = triglycerides) 161 mg/dL <150 H Cholesterol in LDL [Mass/volume] in Serum or Plasma (t est code = 2089-1) 76 mg/dL (calc) chol/HDLC ratio (test code = chol/HDLC ratio) 2.9 (calc) <5.0 non HDL cholesterol (test code = non HDL cholesterol) 103 mg/dL (ca lc) <130 [facility]Com[facility] 1999 panel - Serum or Plasma 2019-01-18 08:16:00* Test Item Value Reference Range Interpretation Comments glucose (test code = glucose) 232 mg/dL 65-99 H urea nitrogen (BUN) (test code = urea nitrogen (BUN)) 17 mg/dL 7-25 creatinine (test code = creatinine) 0.69 mg/dL 0.50-0.99 eGFR non-afr. burmese (test code = eGFR non-afr. burmese) 92 mL/min/1.73m2 > or = 60 eGFR (test code = eGFR ) 10 7 mL/min/1.73m2 > or = 60 BUN/creatinine ratio (test code = BUN/creatinine ratio) not applica ble 6-22 sodium (test code = sodium) 137 mmol/L 135-146 potassium (test code = potassium) 3.9 mmol/L 3.5-5.3 chloride (test code = chloride) 97 mmol/L 98-110 L carbon dioxide (test code = carbon dioxide) 30 mmol/L 20-32 calcium (test code = calcium) 9.1 mg/dL 8.6-10.4 protein, total (test code = protein, total) 6.9 g/dL 6.1-8.1 albumin (test code = albumin) 4.0 g/dL 3.6-5.1 globulin (test code = globulin) 2.9 g/dL (calc) 1.9-3.7 albumin/globulin ratio (test code = albumin/globulin ratio) 1.4 (calc) 1.0-2.5 bilirubin, total (test code = bilirubin, total) 0.3 mg/dL 0.2-1. 2 alkaline phosphatase (test code = alkaline phosphatase) 128 U/L 33-130 AST (test code = AST) 33 U/L 10-35 ALT (test code = ALT) 31 U/L 6-29 H [facility] Auto Differential panel - [id number] 08:16:00 * Test Item Value Reference Range Interpretation Comments white blood cell count (test code = white blood cell count) 8.9 thousand/uL 3.8-10.8 red blood cell count (test code = red blood cell count) 4.58 million/uL 3.80-5.10 hemoglobin (test code = hemoglobin) 13.9 g/dL 11.7-15.5 hematocrit (test code = hematocrit) 41.3 % 35.0-45.0 MCV (test code = MCV) 90.2 fL 80.0-100.0 MCH (test code = MCH) 30.3 pg 27.0-33.0 MCHC (test code = MCHC) 33.7 g/dL 32.0-36.0 RDW (test code = RDW) 12.1 % 11.0-15.0 platelet count (test code = platelet count) 261 thousand/uL 140-400 MPV (test code = MPV) 12.1 fL 7.5-12.5 absolute neutrophils (test code = absolute neutrophils) 5242 poli ls/uL 3929-4623 absolute lymphocytes (test code = absolute lymphocytes) 2848 poli ls/uL 850-3900 absolute monocytes (test code = absolute monocytes) 507 cells/uL 20 0-950 absolute eosinophils (test code = absolute eosinophils) 214 cells/u L 15-500 absolute basophils (test code = absolute basophils) 89 cells/uL 0- 200 neutrophils (test code = neutrophils) 58.9 % lymphocytes (test code = lymphocytes) 32.0 % monocytes (test code = monocytes) 5.7 % eosinophils (test code = eosinophils) 2.4 % basophils (test code = basophils) 1.0 % [facility] HospitalHemoglobin A1c/Hemoglobin.total in [id number] 08:16:00* Test Item Value Reference Range Interpretation Comments Hemoglobin A1c/Hemoglobin.total in Blood (test code = 4548-4) 9.3 % of total HGB <5.7 H EAG (mg/dL) (test code = EAG (mg/dL)) 220 (calc) EAG (mmol/L) (test code = EAG (mmol/L)) 12.2 (calc) [facility] 1995 panel - Serum or [id number] 08:16:00* Test Item Value Reference Range Interpretation Comments cholesterol, total (test code = cholesterol, total) 158 mg/dL <2 00 HDL cholesterol (test code = HDL cholesterol) 55 mg/dL >50 triglycerides (test code = triglycerides) 161 mg/dL <150 H Cholesterol in LDL [Mass/volume] in Serum or Plasma (t est code = 2089-1) 76 mg/dL (calc) chol/HDLC ratio (test code = chol/HDLC ratio) 2.9 (calc) <5.0 non HDL cholesterol (test code = non HDL cholesterol) 103 mg/dL (ca lc) <130 [facility] HospitalCom[facility] 1999 panel - Serum or Plasma 2019-01-18 08:16:00* Test Item Value Reference Range Interpretation Comments glucose (test code = glucose) 232 mg/dL 65-99 H urea nitrogen (BUN) (test code = urea nitrogen (BUN)) 17 mg/dL 7-25 creatinine (test code = creatinine) 0.69 mg/dL 0.50-0.99 eGFR non-afr. burmese (test code = eGFR non-afr. burmese) 92 mL/min/1.73m2 > or = 60 eGFR (test code = eGFR ) 10 7 mL/min/1.73m2 > or = 60 BUN/creatinine ratio (test code = BUN/creatinine ratio) not applica ble 6-22 sodium (test code = sodium) 137 mmol/L 135-146 potassium (test code = potassium) 3.9 mmol/L 3.5-5.3 chloride (test code = chloride) 97 mmol/L 98-110 L carbon dioxide (test code = carbon dioxide) 30 mmol/L 20-32 calcium (test code = calcium) 9.1 mg/dL 8.6-10.4 protein, total (test code = protein, total) 6.9 g/dL 6.1-8.1 albumin (test code = albumin) 4.0 g/dL 3.6-5.1 globulin (test code = globulin) 2.9 g/dL (calc) 1.9-3.7 albumin/globulin ratio (test code = albumin/globulin ratio) 1.4 (calc) 1.0-2.5 bilirubin, total (test code = bilirubin, total) 0.3 mg/dL 0.2-1. 2 alkaline phosphatase (test code = alkaline phosphatase) 128 U/L 33-130 AST (test code = AST) 33 U/L 10-35 ALT (test code = ALT) 31 U/L 6-29 H [facility] Auto Differential panel - [id number] 08:16:00 * Test Item Value Reference Range Interpretation Comments white blood cell count (test code = white blood cell count) 8.9 thousand/uL 3.8-10.8 red blood cell count (test code = red blood cell count) 4.58 million/uL 3.80-5.10 hemoglobin (test code = hemoglobin) 13.9 g/dL 11.7-15.5 hematocrit (test code = hematocrit) 41.3 % 35.0-45.0 MCV (test code = MCV) 90.2 fL 80.0-100.0 MCH (test code = MCH) 30.3 pg 27.0-33.0 MCHC (test code = MCHC) 33.7 g/dL 32.0-36.0 RDW (test code = RDW) 12.1 % 11.0-15.0 platelet count (test code = platelet count) 261 thousand/uL 140-400 MPV (test code = MPV) 12.1 fL 7.5-12.5 absolute neutrophils (test code = absolute neutrophils) 5242 poli ls/uL 7883-3262 absolute lymphocytes (test code = absolute lymphocytes) 2848 poli ls/uL 850-3900 absolute monocytes (test code = absolute monocytes) 507 cells/uL 20 0-950 absolute eosinophils (test code = absolute eosinophils) 214 cells/u L 15-500 absolute basophils (test code = absolute basophils) 89 cells/uL 0- 200 neutrophils (test code = neutrophils) 58.9 % lymphocytes (test code = lymphocytes) 32.0 % monocytes (test code = monocytes) 5.7 % eosinophils (test code = eosinophils) 2.4 % basophils (test code = basophils) 1.0 % [facility] HospitalGlucose [Mass/volume] in Capillary [id number] 12:36:09* Test Item Value Reference Range Interpretation Comments Blood Glucose: mg/dl (test code = Blood Glucose: mg/dl) 272 [facility] in Capillary [id number] 12:36:09* Test Item Value Reference Range Interpretation Comments Blood Glucose: mg/dl (test code = Blood Glucose: mg/dl) 272 [facility]/volume] in Capillary [id number] 12:36:09* Test Item Value Reference Range Interpretation Comments Blood Glucose: mg/dl (test code = Blood Glucose: mg/dl) 272 [facility] [Mass/volume] in Capillary [id number] 12:36:09* Test Item Value Reference Range Interpretation Comments Blood Glucose: mg/dl (test code = Blood Glucose: mg/dl) 272 [facility]Ne[facility] nuclear IgG Ab [Units/volume] in Serum by [id number] 17:54:00* Test Item Value Reference Range Interpretation Comments SAMANTHA screen, ifa (test code = SAMANTHA screen, ifa) negative negative [facility]Ferritin [Mass/volume] in Serum or [id number] 16:42:00* Test Item Value Reference Range Interpretation Comments ferritin (test code = ferritin) 213 NG/mL 20-288 [facility]Ac[facility] 2000 [facility] - Serum [id number] 11:54:00* Test Item Value Reference Range Interpretation Comments hepatitis A IgM (test code = hepatitis A IgM) non-reactive non-reac tive hepatitis B surface antigen (test code = hepatitis B s urface antigen) non-reactive non-reactive confirmation (test code = confirmation) hepatitis B core antibody (IgM) (test code = hepatitis B core antibody (IgM)) non-reactive non-reactive hepatitis C antibody (test code = hepatitis C antibody) non- reactive non-reactive signal to cut-off (test code = signal to cut-off) 0.01 <1.[address] [facility] binding capacity [facility] - Serum or Plasma 2018-01-20 07:36:00* Test Item Value Reference Range Interpretation Comments iron, total (test code = iron, total) 79 mcg/dL 45-160 iron binding capacity (test code = iron binding capacity) 28 1 mcg/dL (calc) 250-450 % saturation (test code = % saturation) 28 % (calc) 11-50 [facility]Hemoglobin A1c/Hemoglobin.total in [id number] 06:38:00* Test Item Value Reference Range Interpretation Comments hemoglobin A1C (test code = hemoglobin A1C) 8.3 % of total HGB <5.7 H EAG (mg/dL) (test code = EAG (mg/dL)) 192 (calc) EAG (mmol/L) (test code = EAG (mmol/L)) 10.6 (calc) [facility][id number] 00:14:00* Test Item Value Reference Range Interpretation Comments Rate & Rhythm (test code = Rate & Rhythm) 55/min, RRR QRS (test code = QRS) W[place] Interval (test code = WV Interval) QRS Duration (test code = QRS Duration) QT Interval (test code = QT Interval) [facility]Com[facility] 2000 [facility] - Serum or Plasma 2017-10-20 12:34:00* Test Item Value Reference Range Interpretation Comments ALT (test code = ALT) 50 U/L 0-55 AST (test code = AST) 56 U/L 5-34 H BUN (test code = BUN) 15.8 mg/dL 9.8-20.1 alk phos (test code = alk phos) 111 unit/L 40-150 glucose (test code = glucose) 174 mg/dL 70-99 H albumin (test code = albumin) 3.8 g/dL 3.5-5.0 creatinine (test code = creatinine) 0.83 mg/dL 0.57-1.11 eGFR non- (test code = eGFR non-) > 60 >60 total bilirubin (test code = total bilirubin) 0.5 mg/dL 0.2-1.2 eGFR - (test code = eGFR - ) >60 >60 sodium (test code = sodium) 140 mEq/L 136-145 potassium (test code = potassium) 4.5 mEq/L 3.5-5.1 chloride (test code = chloride) 101 mmol/L 98-107 total protein (test code = total protein) 7.4 g/dL 6.4-8.3 calcium (test code = calcium) 9.4 mg/dL 8.4-10.2 CO2 (test code = CO2) 28.5 mmol/L 23.0-31.0 anion gap (test code = anion gap) 11 [facility] - [facility] or Plasma 2017-10-20 12:34:00* Test Item Value Reference Range Interpretation Comments ALT (test code = ALT) 50 U/L 0-55 AST (test code = AST) 56 U/L 5-34 H BUN (test code = BUN) 15.8 mg/dL 9.8-20.1 alk phos (test code = alk phos) 111 unit/L 40-150 glucose (test code = glucose) 174 mg/dL 70-99 H albumin (test code = albumin) 3.8 g/dL 3.5-5.0 creatinine (test code = creatinine) 0.83 mg/dL 0.57-1.11 eGFR non- (test code = eGFR non-) > 60 >60 total bilirubin (test code = total bilirubin) 0.5 mg/dL 0.2-1.2 eGFR - (test code = eGFR - ) >60 >60 sodium (test code = sodium) 140 mEq/L 136-145 potassium (test code = potassium) 4.5 mEq/L 3.5-5.1 chloride (test code = chloride) 101 mmol/L 98-107 total protein (test code = total protein) 7.4 g/dL 6.4-8.3 calcium (test code = calcium) 9.4 mg/dL 8.4-10.2 CO2 (test code = CO2) 28.5 mmol/L 23.0-31.0 anion gap (test code = anion gap) 11 [facility] Differential panel - [id number] 16:56:00 * Test Item Value Reference Range Interpretation Comments WBC (test code = WBC) 10.37 x10*3/?L 3.98-10.04 H RBC (test code = RBC) 4.66 10*12/L 3.93-5.22 hemoglobin (test code = hemoglobin) 14.30 g/dL 11.20-15.70 hematocrit (test code = hematocrit) 42.9 % 34.1-44.9 MCV (test code = MCV) 92.1 fL 80.0-100.0 MCH (test code = MCH) 30.7 pg 25.6-32.2 MCHC (test code = MCHC) 33.3 g/dL 32.2-35.5 RDW-SD (test code = RDW-SD) 41.9 fL 36.4-46.3 platelet count (test code = platelet count) 292.0 k/uL 182.0-369. 0 MPV (test code = MPV) 12.3 fL 7.5-11.5 H neut% (test code = neut%) 61.7 % 34.0-71.1 lymph% (test code = lymph%) 29.0 % 19.3-51.7 mon% (test code = mon%) 6.8 % 4.7-12.5 eos% (test code = eos%) 1.7 % 0.7-5.8 baso% (test code = baso%) 0.8 % 0.1-1.2 neut# (test code = neut#) 6.4 x10*3/?L 1.6-6.1 H lymph# (test code = lymph#) 3.0 x10*3/?L 1.2-3.7 mon# (test code = mon#) 0.7 x10*3/?L 0.2-0.9 eos# (test code = eos#) 0.18 x10*3/?L 0.04-0.36 baso# (test code = baso#) 0.08 x10*3/?L 0.01-0.08 [facility] W Auto Differential panel - [id number] 16:56:00 * Test Item Value Reference Range Interpretation Comments WBC (test code = WBC) 10.37 x10*3/?L 3.98-10.04 H RBC (test code = RBC) 4.66 10*12/L 3.93-5.22 hemoglobin (test code = hemoglobin) 14.30 g/dL 11.20-15.70 hematocrit (test code = hematocrit) 42.9 % 34.1-44.9 MCV (test code = MCV) 92.1 fL 80.0-100.0 MCH (test code = MCH) 30.7 pg 25.6-32.2 MCHC (test code = MCHC) 33.3 g/dL 32.2-35.5 RDW-SD (test code = RDW-SD) 41.9 fL 36.4-46.3 platelet count (test code = platelet count) 292.0 k/uL 182.0-369. 0 MPV (test code = MPV) 12.3 fL 7.5-11.5 H neut% (test code = neut%) 61.7 % 34.0-71.1 lymph% (test code = lymph%) 29.0 % 19.3-51.7 mon% (test code = mon%) 6.8 % 4.7-12.5 eos% (test code = eos%) 1.7 % 0.7-5.8 baso% (test code = baso%) 0.8 % 0.1-1.2 neut# (test code = neut#) 6.4 x10*3/?L 1.6-6.1 H lymph# (test code = lymph#) 3.0 x10*3/?L 1.2-3.7 mon# (test code = mon#) 0.7 x10*3/?L 0.2-0.9 eos# (test code = eos#) 0.18 x10*3/?L 0.04-0.36 baso# (test code = baso#) 0.08 x10*3/?L 0.01-0.08 [facility] A[facility]Hemoglobin.total in [id number] 16:07:00* Test Item Value Reference Range Interpretation Comments A1C w/EAG (test code = A1C w/EAG) 8.8 % 1.0-5.7 H average blood glucose (test code = average blood glucose) 206 mg/dL [facility] A[facility]/Hemoglobin.total in [id number] 16:07:00* Test Item Value Reference Range Interpretation Comments A1C w/EAG (test code = A1C w/EAG) 8.8 % 1.0-5.7 H average blood glucose (test code = average blood glucose) 206 mg/dL [facility]Com[facility] 1999 [facility] - Serum or Plasma 2017-05-06 09:17:00* Test Item Value Reference Range Interpretation Comments ALT (test code = ALT) 25 U/L 0-55 AST (test code = AST) 26 U/L 5-34 BUN (test code = BUN) 14.6 mg/dL 9.8-20.1 alk phos (test code = alk phos) 104 unit/L 40-150 glucose (test code = glucose) 74 mg/dL 70-99 albumin (test code = albumin) 3.8 g/dL 3.5-5.0 creatinine (test code = creatinine) 0.81 mg/dL 0.57-1.11 eGFR non- (test code = eGFR non-) > 60 >60 total bilirubin (test code = total bilirubin) 0.4 mg/dL 0.2-1.2 eGFR - (test code = eGFR - ) >60 >60 sodium (test code = sodium) 142 mEq/L 136-145 potassium (test code = potassium) 4.3 mEq/L 3.5-5.1 chloride (test code = chloride) 100 mmol/L 98-107 total protein (test code = total protein) 7.4 g/dL 6.4-8.3 calcium (test code = calcium) 9.5 mg/dL 8.4-10.2 CO2 (test code = CO2) 28.9 mmol/L 23.0-31.0 anion gap (test code = anion gap) [address] [facility] - Serum or [id number] 09:17:00* Test Item Value Reference Range Interpretation Comments HDL (test code = HDL) 48 mg/dL 40-60 triglyceride (test code = triglyceride) 169 mg/dL 0-149 H VLDL calc. (test code = VLDL calc.) 34 mg/dL cholesterol/HDL ratio (test code = cholesterol/HDL ratio) 4 mg/dL non-HDL cholesterol calc. (test code = non-HDL cholesterol c alc.) 122 mg/dL 0-160 cholesterol (test code = cholesterol) 170 mg/dL 0-199 LDL calc. (test code = LDL calc.) 88 mg/dL 0-130 [facility]Thyrotropin [Units/volume] in Serum or [id number] 09:17:00* Test Item Value Reference Range Interpretation Comments TSH (test code = TSH) 0.980 uIU/mL 0.350-4.940 [facility] 1999 [facility] - Serum or Plasma 2017-05-06 09:17:00* Test Item Value Reference Range Interpretation Comments ALT (test code = ALT) 25 U/L 0-55 AST (test code = AST) 26 U/L 5-34 BUN (test code = BUN) 14.6 mg/dL 9.8-20.1 alk phos (test code = alk phos) 104 unit/L 40-150 glucose (test code = glucose) 74 mg/dL 70-99 albumin (test code = albumin) 3.8 g/dL 3.5-5.0 creatinine (test code = creatinine) 0.81 mg/dL 0.57-1.11 eGFR non- (test code = eGFR non-) > 60 >60 total bilirubin (test code = total bilirubin) 0.4 mg/dL 0.2-1.2 eGFR - (test code = eGFR - ) >60 >60 sodium (test code = sodium) 142 mEq/L 136-145 potassium (test code = potassium) 4.3 mEq/L 3.5-5.1 chloride (test code = chloride) 100 mmol/L 98-107 total protein (test code = total protein) 7.4 g/dL 6.4-8.3 calcium (test code = calcium) 9.5 mg/dL 8.4-10.2 CO2 (test code = CO2) 28.9 mmol/L 23.0-31.0 anion gap (test code = anion gap) [address] [facility] 1995 [facility] - Serum or [id number] 09:17:00* Test Item Value Reference Range Interpretation Comments HDL (test code = HDL) 48 mg/dL 40-60 triglyceride (test code = triglyceride) 169 mg/dL 0-149 H VLDL calc. (test code = VLDL calc.) 34 mg/dL cholesterol/HDL ratio (test code = cholesterol/HDL ratio) 4 mg/dL non-HDL cholesterol calc. (test code = non-HDL cholesterol c alc.) 122 mg/dL 0-160 cholesterol (test code = cholesterol) 170 mg/dL 0-199 LDL calc. (test code = LDL calc.) 88 mg/dL 0-130 [facility]Th[facility]in [Units/volume] in Serum or [id number] 09:17:00* Test Item Value Reference Range Interpretation Comments TSH (test code = TSH) 0.980 uIU/mL 0.350-4.940 [facility]Hemoglobin A1c/Hemoglobin.total in [id number] 16:58:00* Test Item Value Reference Range Interpretation Comments A1C w/EAG (test code = A1C w/EAG) 7.6 % 1.0-5.7 H average blood glucose (test code = average blood glucose) 171 mg/dL [facility] A1c/Hemoglobin.total in [id number] 16:58:00* Test Item Value Reference Range Interpretation Comments A1C w/EAG (test code = A1C w/EAG) 7.6 % 1.0-5.7 H average blood glucose (test code = average blood glucose) 171 mg/dL [facility] W Auto Differential panel - [id number] 08:28:00 * Test Item Value Reference Range Interpretation Comments white blood cell count (test code = white blood cell count) [facility] W Auto Differential panel - [id number] 08:28:00 * Test Item Value Reference Range Interpretation Comments white blood cell count (test code = white blood cell count) [facility]
--- OUTSIDE RECORDS SUMMARY | 2020-06-21 08:43 | XMS REPORT | Clinical Summary ---
Author Author [facility] Organization [facility] Address Unknown Phone Unavailable Care Team Providers Care Anode Crew Supervisor Name Role Phone Masoud Vital MD PCP Allergies Comments Active Allergy Reactions Severity Noted Date Codeine GI 12/05/2019 Intolerance Gabapentin Hallucination 04/10/2020 s migraine Monosodium Glutamate Headache 01/01/2020 Terbinafine Hives 04/10/2020 Medications End Date Status Medication Sig Dispensed Refills Start Date Active SITagliptin (JANUVIA) 100 Take 100 mg 0 MG tablet by mouth daily. Active atenoloL (TENORMIN) 50 MG Take 50 mg by 0 tablet mouth daily. Active montelukast (SINGULAIR) Take 10 mg by 0 10 mg tablet mouth nightly. Active lisinopril (PRINIVIL) 10 Take 10 mg by 0 mg tablet mouth daily. Active hydroCHLOROthiazide Take 12.5 mg 0 (HYDRODIURIL) 12.5 MG by mouth tablet daily. Active pioglitazone (ACTOS) 45 Take 45 mg by 0 MG tablet mouth daily. Active fluticasone propionate 2 (two) times 0 (FLONASE) 50 a day. mcg/actuation nasal spray Active SUMAtriptan (IMITREX) 100 sumatriptan 0 MG tablet 100 mg tablet TAKE 1 TABLET BY MOUTH FOR HEADACHE. TAKE SECOND TABLET 2 HOURS AFTER FIRST DOSE IF HEADACHE PERSISTS. MAX OF 2 TABLETS IN 24 HOUR PERIOD, AND MAX OF 4 TABLETS IN ONE MONTH Active bimatoprost (LUMIGAN) nightly. 0 0.01 % ophthalmic drops Active aspirin (ECOTRIN) 81 MG Take 81 mg by 0 enteric coated tablet mouth nightly. Active omeprazole (PriLOSEC) 20 Take 20 mg by 0 MG capsule mouth daily. Active multivitamin with Take 1 tablet 0 minerals tablet by mouth daily. Active FISH OIL-DHA-EPA ORAL Take by mouth 0 daily. Active calcium carbonate Take by mouth 0 (CALTRATE 600 ORAL) daily. Active cholecalciferol, vitamin Take 1,000 0 D3, 1,000 unit tablet Units by mouth daily. Active vitamin B complex (B Take by mouth 0 COMPLEX ORAL) daily. Active ginkgo biloba 60 mg Take by mouth 0 capsule daily. 05/28/2020 Discontinued (Patient Report ed) albuterol (PROAIR HFA) 90 ProAir HFA 90 0 mcg/actuation inhaler mcg/actuation aerosol inhaler Inhale 2 puffs 3 times a day by inhalation route for 30 days. 05/28/2020 Discontinued (Patient Report ed) TURMERIC ORAL Take by mouth 0 daily. 05/28/2020 Discontinued (Patient Report ed) naproxen sodium (ALEVE) Take by mouth 0 220 mg capsule daily. 05/28/2020 Discontinued (Patient Report ed) cycloSPORINE (RESTASIS) 1 drop 2 0 0.05 % ophthalmic (two) times a emulsion day. 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 12/28/2019 Encounters Care Team Description Date Type Specialty Mariela Del Toro MA Tear of right rotator cuff, unspecified tear extent, unspecified whether traumatic (Primary Dx); Cervical radiculopathy 06/20/2020 Orders Only Orthopedic Surgery Brie Johnston Cervical radiculopathy (Primary Dx); Lumbar radiculopathy 06/17/2020 Orders Only Orthopedic Surgery Brie Johnston 05/29/2020 Orders Only Orthopedic Surgery Brie Johnston Lumbar radiculopathy (Primary Dx) 05/29/2020 Orders Only Orthopedic Surgery Johnny Jin Jr., MD Tear of right rotator cuff, unspecified tear extent, unspecified whether traumatic (Primary Dx); Cervical radiculopathy; Balance disorder 05/28/2020 Office Visit Orthopedic Surgery 05/28/2020 Travel Mariela Del Toro MA Right shoulder pain, unspecified chronic ity (Primary Dx) 05/27/2020 Orders Only Orthopedic Surgery Johnny Jin Jr., MD Croley, Jay Sawyer, MD Lumbar radiculopathy (Primary Dx) 04/10/2020 Office Visit Orthopedic Surgery Brie Johnston Pain of left hip joint (Primary Dx) 04/09/2020 Orders Only Orthopedic Surgery 04/09/2020 Travel 04/04/2020 Travel Held, Muriel Andrews MD 01/05/2020 Telephone Obstetrics and Gyne cology Held, Muriel Andrews MD Preop testing 01/01/2020 Hospital Radiology Encounter Held, Muriel Andrews MD Pre-op testing (Primary Dx) 01/01/2020 Pre-Admit Pre-Admission Testi ng Testing Appointment Held, Muriel Andrews MD PMB (postmenopausal bleeding) (Primary D x) 01/01/2020 Office Visit Obstetrics and Gyne cology Held, Muriel Andrews MD Preop testing (Primary Dx) 01/01/2020 Transcribe Access Orders Held, Muriel Andrews MD 12/18/2019 Telephone Obstetrics and Gyne cology Held, Muriel Andrews MD PMB (postmenopausal bleeding) 12/08/2019 Hospital Radiology Encounter Held, Muriel Andrews MD 12/06/2019 Telephone Obstetrics and Gyne cology Held, Muriel Andrews MD Special screening for malignant neoplasm s, colon (Primary Dx); Encounter for routine gynecologic examination in Medicare patient; PMB (postmenopausal bleeding) 12/05/2019 Office Visit Obstetrics and Gyne cology after 06/21/2019 Family History Medical History Relation Name Comments Dementia Brother Primo Parisi Jr Diabetes Brother Primo Parisi Jr Cancer Father [place] Cancer Mother Caroline Parisi Diabetes Mother Caroline Parisi Lymphoma Mother Caroline Parisi Breast cancer Sister Relation Name Status Comments Brother Primo Parisi Jr Father [place] Mother Caroline Parisi Sister Social History Date Tobacco Use Types Packs/Day Years Used Quit: 12/05/1994 Former Smoker Cigarettes 0.25 10 Smokeless Tobacco: Never Used Tobacco Cessation: Counseling Given: No Drinks/Week oz/Week Comments Alcohol Use 2 Glasses of wine 2 Cans of beer 0 Shots of liquor 0 Standard drinks or equivalent 4.0 Not Currently Sex Assigned at Date Recorded Female 12/28/2019 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 Date Recorded COVID-19 Exposure Response 05/28/2020 3:36 PM CDT In the last month, have you been in contact with No / Unsure someone who was confirmed or suspected to have Coronavirus / COVID-19? Last Filed Vital Signs Reading Time Taken Comments Vital Sign 118/57 01/01/2020 1:43 PM COPPING MACHINE OPERATOR Blood Pressure 56 01/01/2020 1:43 PM COPPING MACHINE OPERATOR Pulse 36.6 C (97.8 F) 01/01/2020 1:43 PM COPPING MACHINE OPERATOR Temperature 20 01/01/2020 1:43 PM COPPING MACHINE OPERATOR Respiratory Rate 97% 01/01/2020 1:43 PM COPPING MACHINE OPERATOR Oxygen Saturation - - Inhaled Oxygen Concentration 113 kg (250 lb) 05/28/2020 3:45 PM CDT Weight 160 cm (5' 3") 05/28/2020 3:45 PM CDT Height 44.29 05/28/2020 3:45 PM CDT Body Mass Index Plan of Treatment Care Team Description Date Type Specialty Muriel Diamond MD [address] [facility] [address] [place], [place] [id number] 08/08/2020 Hospital Obstetrics and Gyne cology Encounter HeldMuriel MD [address] [facility] [address] [place], [place] [id number] HYSTEROSCOPY, WITH DILATION AND CURETTAG E OF UTERUS 08/08/2020 Surgery Obstetrics and Gyne cology Health Maintenance Due Date Last Done Comments DIABETIC RETINAL EYE EXAM 1954 DIABETIC FOOT EXAM 1964 URINE MICROALBUMIN 1964 COLONOSCOPY SCREENING 2004 SHINGLES VACCINES (#1) 2004 BREAST CANCER SCREENING 04/01/2017 04/01/2015 65+ PNEUMOCOCCAL VACCINE 2019 10/19/2017 (2 of 2 - PPSV23) INFLUENZA VACCINE 08/01/2020 Procedures Comments Procedure Name Priority Date/Time Associated Diag nosis XR CERVICAL SPINE Routine 05/28/2020 Right should er pain, COMPLETE 4:03 PM CDT unspecified chronic ity XR SHOULDER 2+ VW RIGHT Routine 05/28/2020 Right shoulder pain, 4:03 PM CDT unspecified chronicity XR LUMBAR SPINE 2 OR 3 VW Routine 04/10/2020 Lumb ar radiculopathy 10:42 AM CDT XR HIP 2-3 VIEWS LEFT Routine 04/10/2020 Pain of left hip joint 9:42 AM CDT XR CHEST 2 VW Routine 01/01/2020 Preop testing 3:32 PM COPPING MACHINE OPERATOR ECG PRE/POST OP Routine 01/01/2020 Pre-op testing 2:40 PM COPPING MACHINE OPERATOR ESTIMATED GFR Routine 01/01/2020 2:11 PM COPPING MACHINE OPERATOR HEMOGLOBIN A1C Routine 01/01/2020 Pre-op testing 2:11 PM COPPING MACHINE OPERATOR TYPE AND SCREEN Routine 01/01/2020 Pre-op testing 2:11 PM COPPING MACHINE OPERATOR PROTHROMBIN TIME WITH INR Routine 01/01/2020 Pre- op testing 2:11 PM COPPING MACHINE OPERATOR PARTIAL THROMBOPLASTIN Routine 01/01/2020 Pre-op testing TIME (PTT) 2:11 PM COPPING MACHINE OPERATOR BASIC METABOLIC PANEL Routine 01/01/2020 Pre-op t esting 2:11 PM COPPING MACHINE OPERATOR CBC HEMOGRAM Routine 01/01/2020 Pre-op testing 2:11 PM COPPING MACHINE OPERATOR US PELVIC TRANSVAGINAL Routine 12/08/2019 PMB (po stmenopausal 9:44 AM COPPING MACHINE OPERATOR bleeding) US PELVIC TRANSABDOMINAL Routine 12/08/2019 PMB ( postmenopausal 9:44 AM COPPING MACHINE OPERATOR bleeding) SURGICAL PATHOLOGY Routine 12/05/2019 PMB (postme nopausal REQUEST 2:16 PM COPPING MACHINE OPERATOR bleeding) PAP IG (IMAGE GUIDED) Routine 12/05/2019 Encounte r for routine 2:14 PM COPPING MACHINE OPERATOR gynecologic examination in Medicare patient OCCULT BLOOD, STOOL Routine 12/05/2019 Special sc reening for 9:51 AM COPPING MACHINE OPERATOR malignant neoplasms, colon [place] BIOPSY OF UTERUS Routine 12/05/2019 PMB (postm enopausal LINING 8:30 AM COPPING MACHINE OPERATOR bleeding) after 06/21/2019 Results * XR Cervical Spine Complete (05/28/2020 4:03 PM CDT) Specimen Impressions Performed At facet arthritis noted, and degenerative disc disease, as [facility] noted, Prior c1/2 wiring noted Narrative Performed At [facility] Comparison films date: none FINDINGS: 4 views were obtained of th e cervical spine demonstrate no Acute fracture, dislocation. Evidence o f prior posterior wire fixation of posterior elements. The coronal alignment is normal. There is no suggestion of scoliosis. Sagittal alignment is normal. There i s no suggestion of spondylolisthesis. Degenerative discs are seen. Worst at C 5/6 and 6/7. Facet OA is suggested bilaterally. The bones appear moderately mineralized . Osseous lesion(s) is not seen. Performing Organization Address [facility] Ph one Number [facility] [address] [place] [address] * XR Shoulder 2+ Vw Right (05/28/2020 4:03 PM CDT) Specimen Impressions Performed At Negative shoulder. [facility] Narrative Performed At [facility] FINDINGS: Four views were obtained of the right shoulder. The bones are intact and anatomically aligned. The ac romioclavicular and glenohumeral joints appear normal. The bones, joints , and soft tissues appear normal. The visualized lung is clear. Performing Organization Address [facility] Ph one Number [facility] [address] [place] [address] * XR Lumbar Spine 2 Or 3 Vw (04/10/2020 10:42 AM CDT) Specimen Narrative Performed At [facility] 2v lumbar spine. I personally ordered a nd reviewed the imaging. Indication: pain, assessment of degener ative disc disease X-rays demonstrate small listhesis of L 4 on L5. Disc heights maintained. Performing Organization Address [facility] Ph one Number [facility] [address] [place] [address] * XR Hip 2-3 View Left (04/10/2020 9:42 AM CDT) Specimen Narrative Performed At [facility] AP pelvis, 2v left hip. I personally or dered and reviewed the imaging. Indication: pain, assessment of joint d isease X-rays demonstrate no significant degen erative joint disease, fracture, or dislocation. Mild acetabular profunda. Performing Organization Address [facility] one Number [facility] [address] [place] [address] * XR Chest 2 Vw (01/01/2020 3:32 PM COPPING MACHINE OPERATOR) Specimen Narrative Performed At EXAMINATION: XR CHEST 2 VW [facility] CLINICAL HISTORY: 64 years Female Z01 .818 Encounter for other preprocedural examination, PREOP COMPARISON: October 29 IMPRESSION: Cardiomediastinal silhouette is unchang ed. Atelectasis in the lung bases Age related changes in the osseous stru ctures. Old healed right posterior rib fractures . [facility]-[id number] Procedure Note Interface, Radiology Results Incoming - 01/01/2020 3:39 PM COPPING MACHINE OPERATOR EXAMINATION: XR CHEST 2 VW CLINICAL HISTORY: 64 years Female Z01.818 Encounter for other preprocedural examination, PREOP COMPARISON: October 29 IMPRESSION: Cardiomediastinal silhouette is unchanged. Atelectasis in the lung bases Age related changes in the osseous structures. Old healed right posterior rib fractures . [facility]-[id number] Performing Organization Address [facility] one Number [facility] [address] [place] [address] * ECG Pre/Post Op (01/01/2020 2:40 PM COPPING MACHINE OPERATOR) Ventricular 54 [facility] rate Atrial rate 54 [facility] NJ interval 128 [facility] QRSD interval 92 [facility] QT interval 452 [facility] QTC interval 428 [facility] P axis 1 40 [facility] QRS axis 1 43 [facility] T wave axis 26 [facility] EKG impression Sinus bradycardia-Otherwise [facility] MUSE normal ECG-No previous ECGs available- Specimen Narrative Performed At This result has an attachment that is n ot available. Performing Organization Address [facility] one Number [facility] [address] [place] [address] * Estimated GFR (01/01/2020 2:11 PM COPPING MACHINE OPERATOR) Pathologist [facility] Estimated GFR 75 mL/min/1.73 m2 [place] Comment: YAZIDI [facility] HOSPITAL Interpretation G1 >=90 Normal or high G2 60-89 Mildly decreased G3a 45-59 Mildly to moderately decreased G3b 30-44 Moderately to severely decreased G4 15-29 Severely decreased G5 <15 Kidney failure The eGFR was calculated using the Chronic Kidney Disease Epidemiology Collaboration (CKD-EPI) equation. Interpretation is based on recommendations of the National Kidney Foundation-Kidney Disease Outcomes Quality Initiative (NKF-KDOQI) published in 2014. Specimen Plasma specimen Performing Organization Address City/[facility] Ph one Number [facility] DEPARTMENT OF [address] [place] [address] PATHOLOGY AND [facility] MEDICINE [address] * Partial thromboplastin time, activated (01/01/2020 2:11 PM COPPING MACHINE OPERATOR) Pathologist [facility] PTT 37.5 (H) 23.0 - 36.0 sec [place] Comment: YAZIDI PTT therapeutic range for HOSPITAL unfractionated heparin is 61.0-112.0 seconds which corresponds to Anti-Xa 0.3-0.7 U/ml. Specimen Blood Performing Organization Address [facility] Ph one Number [facility] DEPARTMENT OF [address] [place] [address] PATHOLOGY AND [facility] MEDICINE [address] * Prothrombin time with INR (01/01/2020 2:11 PM COPPING MACHINE OPERATOR) [facility] Prothrombin 13.9 11.5 - 14.5 sec [facility] INR 1.1 [place] Comment: YAZIDI The International Normalized HOSPITAL Ratio (INR) is a therapeutic monitoring tool for patients who are stable on oral anticoagulant therapy. An INR of 2.0-3.0 is suggested for deep vein thrombosis/pulmonary embolism. Specimen Blood Performing Organization Address [facility] Ph one Number [facility] DEPARTMENT OF [address] [place] [address] PATHOLOGY AND GENOMIC MEDICINE [address] * CBC hemogram (01/01/2020 2:11 PM COPPING MACHINE OPERATOR) [facility] WBC 6.51 4.50 - 11.00 k/uL [facility] RBC 4.41 4.20 - 5.50 m/uL [facility] HGB 13.4 12.0 - 16.0 g/dL [facility] HCT 42.2 37.0 - 47.0 % [facility] MCV 95.7 82.0 - 100.0 fL [facility] MCH 30.4 27.0 - 34.0 pg [facility] MCHC 31.8 31.0 - 37.0 g/dL [facility] RDW - SD 48.1 37.0 - 55.0 fL [facility] MPV 11.4 8.8 - 13.2 fL [facility] Platelet count 226 150 - 400 k/uL [facility] Nucleated RBC 0.00 /100 WBC [facility] Specimen Blood Performing Organization Address City/[facility] Ph one Number [facility] DEPARTMENT OF [address] [place] [address] PATHOLOGY AND GENOMIC MEDICINE [address] * Type and screen (01/01/2020 2:11 PM COPPING MACHINE OPERATOR) Pathologist [facility] ABO grouping O [facility] Rh type POS [facility] Antibody screen NEG [place] (gel) [facility] Specimen Blood Performing Organization Address City/[facility] Ph one Number [facility] DEPARTMENT OF [address] [place] [address] PATHOLOGY AND GENOMIC MEDICINE [address] * Hemoglobin A1c (01/01/2020 2:11 PM COPPING MACHINE OPERATOR) Pathologist [facility] Hemoglobin A1C 5.7 (H) 4.0 - 5.6 % [place] Comment: YAZIDI HbA1c cutoffs for diagnosing HOSPITAL diabetes: 4.0% - 5.6% = normal 5.7% - 6.4% = increased risk for diabetes (prediabetes)9 >=6.5% = diabetes9 Goals for glycemic control (ADA 2016) < 7.0% Target for non adults with diabetes. More or less stringent targets may be appropriate for individual patients. <7.5% Target for Children and adolescents with type 1 diabetes. Specimen Blood Performing Organization Address City/[facility] Ph one Number [facility] DEPARTMENT OF [address] [place] [address] PATHOLOGY AND GENOMIC MEDICINE [address] * Basic metabolic panel (01/01/2020 2:11 PM COPPING MACHINE OPERATOR) Sodium 140 135 - 148 mEq/L [facility] Potassium 3.8 3.5 - 5.0 mEq/L [facility] Chloride 99 98 - 112 mEq/L [facility] CO2 27 24 - 31 mEq/L [facility] Anion gap 14@ANIO 7 - 15 mEq/L [facility] BUN 17 8 - 23 mg/dL [facility] Creatinine 0.82 0.50 - 0.90 mg/dL [facility] Glucose 127 (H) 65 - 99 mg/dL [facility] Calcium 9.4 8.8 - 10.2 mg/dL [facility] Specimen Plasma specimen Performing Organization Address City/State/Zipcode Ph one Number [facility] DEPARTMENT OF [address] [place] [address] PATHOLOGY AND GENOMIC MEDICINE [address] * US Pelvic Transabdominal (12/08/2019 9:44 AM COPPING MACHINE OPERATOR) Specimen Narrative Performed At EXAMINATION: US PELVIC TRANSABDOMINAL, US PELVIC TR ANSVAGINAL [facility] CLINICAL HISTORY: N95.0 Postmenopausa l bleeding, pmb cramping COMPARISON: None. TECHNIQUE:Transabdominal and endovagina l sonographic images of the pelvis were obtained. Grayscale, color Doppler, and spectral waveform analysis of the ovarian vessels was performed. FINDINGS: The uterus measures 10.5 x 3.0 x 4.8 cm . The uterus is anteflexed. The endometrial stripe measures 6 mm. Patient is status post bilateral oophor ectomy. No suspicious adnexal masses are seen. There is no fluid in the pelvic cul-de- sac. Impression: Mild thickening of the endometrial stri pe, which measures 6 mm. In the setting of postmenopausal bleeding, endometrial biopsy is advised. [id number] Dictated and approved by radiology resi dent/fellow: Artur Gomez M.D. I, Misa Corea MD, personally revie wed the images and resident's/fellow's findings and agree with the final repor t. Procedure Note Interface, Radiology Results Incoming - 12/08/2019 12:40 PM COPPING MACHINE OPERATOR EXAMINATION: US PELVIC TRANSABDOMINAL, US PELVIC TRANSVAGINAL CLINICAL HISTORY: N95.0 Postmenopausal bleeding, pmb cramping COMPARISON: None. TECHNIQUE:Transabdominal and endovaginal sonographic images of the pelvis were obtained. Grayscale, color Doppler, and spectral waveform analysis of the ovarian vessels was performed. FINDINGS: The uterus measures 10.5 x 3.0 x 4.8 cm. The uterus is anteflexed. The endometrial stripe measures 6 mm. Patient is status post bilateral oophorectomy. No suspicious adnexal masses are seen. There is no fluid in the pelvic cul-de-sac. Impression: Mild thickening of the endometrial stripe, which measures 6 mm. In the setting of postmenopausal bleeding, endometrial biopsy is advised. [id number] Dictated and approved by residential support worker/fellow: Artur Gomez M.D. I, Misa Corea MD, personally reviewed the images and resident's/fellow's findings and agree with the final report. Performing Organization Address [facility]/State[facility] Ph one Number [facility] [address] [place] [address] * US Pelvic Transvaginal (12/08/2019 9:44 AM COPPING MACHINE OPERATOR) Specimen Narrative Performed At EXAMINATION: US PELVIC TRANSABDOMINAL, US PELVIC TR ANSVAGINAL [facility] CLINICAL HISTORY: N95.0 Postmenopausa l bleeding, pmb cramping COMPARISON: None. TECHNIQUE:Transabdominal and endovagina l sonographic images of the pelvis were obtained. Grayscale, color Doppler, and spectral waveform analysis of the ovarian vessels was performed. FINDINGS: The uterus measures 10.5 x 3.0 x 4.8 cm . The uterus is anteflexed. The endometrial stripe measures 6 mm. Patient is status post bilateral oophor ectomy. No suspicious adnexal masses are seen. There is no fluid in the pelvic cul-de- sac. Impression: Mild thickening of the endometrial stri pe, which measures 6 mm. In the setting of postmenopausal bleeding, endometrial biopsy is advised. [id number] Dictated and approved by radiology resi dent/fellow: Artur Gomez M.D. I, Misa Corea MD, personally revie wed the images and resident's/fellow's findings and agree with the final repor t. Procedure Note Interface, Radiology Results Incoming - 12/08/2019 12:40 PM COPPING MACHINE OPERATOR EXAMINATION: US PELVIC TRANSABDOMINAL, US PELVIC TRANSVAGINAL CLINICAL HISTORY: N95.0 Postmenopausal bleeding, pmb cramping COMPARISON: None. TECHNIQUE:Transabdominal and endovaginal sonographic images of the pelvis were obtained. Grayscale, color Doppler, and spectral waveform analysis of the ovarian vessels was performed. FINDINGS: The uterus measures 10.5 x 3.0 x 4.8 cm. The uterus is anteflexed. The endometrial stripe measures 6 mm. Patient is status post bilateral oophorectomy. No suspicious adnexal masses are seen. There is no fluid in the pelvic cul-de-sac. Impression: Mild thickening of the endometrial stripe, which measures 6 mm. In the setting of postmenopausal bleeding, endometrial biopsy is advised. [id number] Dictated and approved by residential support worker/fellow: Artur Gomez M.D. I, Misa Corea MD, personally reviewed the images and resident's/fellow's findings and agree with the final report. Performing Organization Address City/State/[facility] Ph one Number [facility] [address] [place] [address] * Surgical pathology request (12/05/2019 2:16 PM COPPING MACHINE OPERATOR) Material Comment [facility] Submitted Comment: Material submitted: . endometrium - EMB Diagnosis Comment [facility] Comment: Diagnosis: EMB: - SCANT BENIGN ENDOCERVICAL GLANDS AND SQUAMOUS EPITHELIUM. - RARE STRIPS OF ATROPHIC ENDOMETRIAL EPITHELIUM, INSUFFICIENT FOR EVALUATION. [facility] 12/06/2019 1154 Local Electronically Comment [facility] signed by: Comment: Electronically signed: . Tanvi Pérez MD, Pathologist Gross Comment [facility] description: Comment: Gross description: . 1 Container, formalin-filled, labeled with patient identification. EMB: Received in formalin is a 0.2 x 0.1 x 0.1 cm aggregate of mucus and soft tissue. The specimen is filtered and entirely submitted in A1 cassette. Minute specimen, may not survive processing. /CQS 12/06/2019 1154 Local CPT: Comment [facility] Comment: CPT . 159243 Specimen Tissue Narrative Performed At [facility] [address] Microsoft Exchange Administrator: Ethan Rico MD, Phone: [phone] Performing Organization Address [facility] Ph one Number [facility] * Pap IG (Image Guided) (12/05/2019 2:14 PM COPPING MACHINE OPERATOR) Diagnosis Comment [facility] Comment: NEGATIVE FOR INTRAEPITHELIAL LESION OR MALIGNANCY. THIS SPECIMEN WAS RESCREENED PART OF OUR SPECIAL ASSETS OFFICER PROGRAM. Specimen Comment [facility] adequacy Comment: Satisfactory for evaluation. Endocervical component may not be distinguished in cases of atrophy. Performed by: CommentComment: Nela Bangura Back Hoe Machine Operator (ASC) QC reviewed by: CommentComment: NATE Pereira Back Hoe Machine Operator (ASCP) Comment . [facility] Note: Comment [facility] 02 Comment: The Pap smear is a screening test designed to aid in the detection of premalignant and malignant conditions of the uterine cervix. It is not a diagnostic procedure and should not be used as the sole means of detecting cervical cancer. Both false-positive and false-negative reports do occur. Test Comment [facility] 02 methodology Comment: This liquid based ThinPrep(R) pap test was screened with the use of an image guided system. Specimen Stool Narrative Performed At Performed at: - [address] [address] Microsoft Exchange Administrator: Ethan Rico MD, Phone: [phone] Performed at: - [facility] [employer] [address] [place] [address]134 Microsoft Exchange Administrator: Ethan Rico MD, Phone: [phone] Specimen Comment: Source.............Ce rvix;Endocervix Specimen Comment: No. 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) Narrative Performed At Muriel Diamond MD 12/05/2019 2 :18 PM Endometrial biopsy Date/Time: 12/05/2019 2:18 PM Performed by: Muriel Diamond MD Authorized by: Muriel Diamond MD Consent: Consent obtained: Verbal Consent given by: Patient Procedural risks discussed: Bleedin g, failure rate and repeat procedure Patient questions answered: yes Patient agrees, verbalizes understand ing, and wants to proceed: yes Indication: Indications: Post-menopausal bleeding Pre-procedure: Prepped with: Betadine Procedure: Procedure performed: Endometrial bi opsy Procedure details: endometrial biopsy with Pipelle A bivalve speculum was placed in the vagina: yes Cervix cleaned and prepped: yes Tenaculum applied to cervix: yes Cervix dilated: no Specimen collected: specimen collecte d and sent to pathology Findings: Normal Post-procedure: Patient observed: yes No complications: yes Post procedure instructions given to patient: yes Nothing in vagina for 2 weeks: yes Patient tolerated procedure well with no complications: yes after 06/21/2019 Insurance Type Payer Benefit Subscriber ID Effective Phone Address Plan / Dates Group Medicare MEDICARE MEDICARE xxxxxxxxxxx 2019-P HARE, PART A AND resent [place] B Commercial COMMERCIAL MISC [facility] xxxxxxxxxx 2019-P MEDICARE resent SUPPLEMENT Advance Directives For more information, please contact: [phone] 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
--- OUTSIDE RECORDS SUMMARY | 2020-06-21 08:44 | XMS REPORT | Encounter Summary ---
Author Organization Unknown Address [address] [place] [address] Phone [phone] Care Team Providers Care Horizontal Boring Mill Operator Name Role Phone Dr. Masoud Vital 3 [phone] Masoud Vital MD 3 [phone] Reason for Visit vaginal problem Instructions 1. Type 2 diabetes mellitus with multipl e complications glucose, fingerstick, blood 2. Benign essential hypertension 3. Candidiasis of vagina Diflucan 150 mg tablet Discussion Note Declined all appropriate vaccines despit e counseling - including Fluzone vaccine F/u in 3 mths Patient educational handouts: No information available. Plan of Care Reminders Provider Appointments None recorded. Lab Glucose, Fingerstick, Blood 07/19/2019 [facility] Referral None recorded. Procedures None recorded. Surgeries None recorded. Imaging None recorded. Medications Name Start Date aspirin 81 mg po alt days with food atenolol 50 mg tablet TAKE 1 TABLET BY MOUTH ONCE DAILY diclofenac 1 % topical gel APPLY 2 GRAMS TO THE AFFECTED AREA(S) BY TOPICAL ROUTE 4 TIMES PER DAY Diflucan 150 mg tablet 1 tablet q 3 days fluticasone propionate 50 mcg/actuation nasal spray,suspension [place] 1 spray twice a day by intranasal route for 90 days. hydrochlorothiazide 12.5 mg capsule TAKE 1 CAPSULE BY MOUTH ONCE DAILY Januvia 100 mg tablet Take 1 tablet every day by oral route. lisinopril 10 mg tablet TAKE 1 TABLET BY MOUTH ONCE DAILY FOR 90 DAYS montelukast 10 mg tablet Take 1 tablet every day by oral route in the evening for 90 days. pioglitazone 45 mg tablet TAKE 1 TABLET BY MOUTH ONCE DAILY FOR 90 DAYS ProAir HFA 90 mcg/actuation aerosol inha ler Inhale 2 puffs 3 times a day by inhalation route for 30 days. sumatriptan 100 mg tablet TAKE 1 TABLET BY MOUTH FOR HEADACHE. TAKE SECOND TABLET 2 HOURS AFTER FIRST DOSE IF HEADACHE PERSISTS. MAX 2 TABLETS IN 24 HOUR PERIOD, AND MAX 4 TABLETS IN ONE MONTH Medications Administered None recorded. Vitals Height Weight BMI Blood Pressure 5 ft 3 in 255 lbs 45.2 kg/m2 130/80 mm[Hg] Lab Results Date Name Specimen Result Interpretation Description Value Range Status Address 06/30/2019 Visual Acuity R Eye Uncorrected 20/40 [facility]: [address] [address], [place] L Eye Uncorrected 20/40 [facility]: [address] Glucose, Fingerstick, Blood Blood Glucose: m g/dl 117 [facility]: [address] [address], [place] Glucose, Fingerstick, Blood Blood Glucose: m g/dl 126 [facility]: [address] Allergies Code Code System Name Reaction Severity Status Onset 2670 RxNorm Codeine Active 18017 RxNorm Gabapentin Active Monosodium Glutamate Headache Severe Active Problems Name Status Onset Date Source Disorder of Achilles Tendon Active 06/01/2017 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 Migraine Active 10/18/2017 Benign Essential Hypertension Active 10/18/2017 Elevated Liver Enzymes Level Active 10/18/2017 Left Side Sciatica Active 01/18/2019 Type 2 Diabetes Mellitus with Multiple Complications Active 03/30/2019 Procedures Date Name Performed by 11/01/1988 Orthopedic Surgery Information not avai lable Cervical Laminoplsty 2/> Seg Information not available Hemorrhoidectomy Information not avai lable Appendectomy Information not avai lable Cholecystectomy (Gall Bladder Removal) I nformation not available 06/30/2019 MAMMO, Screening, Digital, Bilateral [facility] [address] [place] [address] (Work [address]) 06/30/2019 Bone Density [facility] [address] [place] [address] (Work Place) Vaccine List Vaccine Type pneumococcal conjugate PCV 13 10/19/20170.5 mL Social History Tobacco Smoking Status Former Smoker (1 PPD) Past Encounters 07/19/2019 Type 2 Diabetes Mellitus with Multiple Complications; Benign Essential Hypertension; Candidiasis of Vagina Masoud [facility]ital [facility] [address] [facility] [place] [address], Ph. 06/30/2019 Adult Health Examination; Advance Directive Discussed with Patient; Depression Screening; Screening for Malignant Neoplasm of Breast; Screening for Osteoporosis; Screening for Malignant Neoplasm of Colon; Immunization Refused; Type 2 Diabetes Mellitus with Multiple Complications; Benign Essential Hypertension; Elevated Liver Enzymes Level; Morbid Obesity; Migraine with Aura; Pain in Right Knee Masoud Vital MD: [address] [facility], [address], [place] [address], Ph. History of Present Illness Note:Itching in vaginal area, no pain when voiding, Finished keflex 2 days ago . So here for treatment of candidal inf since yesterday , Dima stubbed her Rt great toe against an edge covered by overgrown grass & pain & swelling & Rt great toe turning black , so saw podiatry & had arturo great toe nail removed , pain less today than 2 days ago , Was put on keflex 500 mg po bid since 07/07/2019 , Just moved to a new home & still trying to settle in.< div>Also seeing endocrinology DrAngeline . No change in meds made </div><div >No chest pain , no shortness of breath, no palpitations ,no dizziness , no diaphoresis , no weakness or numbness in arms or legs , no visual loss .</div> Review of Systems:ROS as noted in the HPI Review of Systems None recorded. Physical Exam General Adult Exam (Female) Reported By: Patient Constitutional: General Appearance: well-dev eloped, morbidly obese. Level of Distress: NAD. Ambulation: ambulating normally Psychiatric: Insight: good judgement; Joe jorge a lot. Mental Status: active and alert, normal mood, normal affect. Orientation: to time, to place, to person Head: Head: normocephalic, atrauma tic Eyes: Lids and Conjunctivae: non-i njected, no discharge, no pallor. Pupils: PERRLA. Corneas: grossly intact. EOM: EOMI. Lens: clear. Sclerae: non-icteric ENMT: Ears: no lesions on external ear, EACs clear, TMs clear. Hearing: no hearing loss. Nose: no lesions on external nose, nares patent, no septal deviation, nasal passages clear, no sinus tenderness, no nasal discharge. Lips, Teeth, and Gums: no mouth or lip ulcers, no bleeding gums, normal dentition. Oropharynx: moist mucous membranes, no erythema, no exudates, tonsils not enlarged Neck: Neck: supple, trachea midlin e, no masses, FROM. Lymph Nodes: no cervical LAD, no supraclavicular LAD, no axillary LAD. Thyroid: no enlargement, non- tender, no nodules Lungs: Respiratory effort: no dyspn ea. Auscultation: breath sounds normal, good air movement, CTA except as noted, no wheezing, no rales/crackles, no rhonchi Cardiovascular: Heart Auscultation: RRR, nor mal S1, normal S2, no murmurs, no rubs, no gallops Abdomen: Bowel Sounds: normal. Inspec tion and Palpation: soft, no tenderness, no guarding, no rebound tenderness, no masses, no CVA tenderness; morbidly obese. Liver: non-tender, no hepatomegaly Musculoskeletal:: Motor Strength and Tone: nor mal motor strength, normal tone. Joints, Bones, and Muscles: normal movement of all extremities, no bony abnormalities, no contractures, no malalignment, no tenderness. Extremities: no cyanosis, no edema, no varicosities; Rt great toe in a large bandaid, All other toe nails - thickened & raised & discoloured Neurologic: Gait and Station: normal gai t, normal station. Cranial Nerves: grossly intact. Sensation: grossly intact Skin: Inspection and palpation: no rash, no lesions, no abnormal nevi, good turgor, no jaundice. Nails: normal Back: Thoracolumbar Appearance: no rmal curvature
--- OUTSIDE RECORDS SUMMARY | 2020-06-21 08:44 | XMS REPORT | Encounter Summary ---
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 Masoud Vital 3 [phone] Masoud Vital MD 3 [phone] Reason for Visit heart palpitations Instructions 1. Palpitations electrocardiogram cardiology referral TSH, serum or plasma 2. Type 2 diabetes mellitus with multipl e complications glucose, fingerstick, blood HbA1c (hemoglobin A1c), blood 3. Benign essential hypertension 4. Seasonal allergic rhinitis fluticasone propionate 50 mcg/actuatio n nasal spray,suspension allergy referral 5. Malaise and fatigue CBC w/ auto diff CMP, serum or plasma urinalysis, dipstick 6. Mixed hyperlipidemia lipid panel, serum Discussion Note Pt keeps saying she does not know what s he is taking , counseled several times at all visits pl take a pic of med instructions on med bottle or write down arturo whole name of med ,dose & how often she is taking & keep lisyt in Wallet . Pt never does it ,So gave her 2 copies of med list that she can look over & make corrections & let me know next time when she comes in which meds she actually takes . Pt does not carry a list of meds . If you do not hear from us in 1 week after the labs are done ,pl call us for results Recommended she take q daily long acting insulin , vanessa otoole think about it as the pharamcist told her about using a pen f/u in 3 mths Patient educational handouts: No information available. Plan of Care Reminders Provider Appointments Est Patient on or around 07/22/2019 Masoud Vital MD Lab Glucose, Fingerstick, Blood 04/21/2019 [facility] TSH, Serum or Plasma 04/21/2019 [facility] [place] [facility] CBC W/ Auto Diff 04/21/2019 [facility] CMP, Serum or Plasma 04/21/2019 [facility] [place] [facility] Urinalysis, Dipstick 04/21/2019 [facility] [place] [facility] ([facility] Lipid Panel, Serum 04/21/2019 [facility] HbA1C (Hemoglobin a1C), Blood 04/21/2019 [facility] Referral Cardiology Referral 04/21/2019 [facility] Allergy Referral 04/21/2019 Estela Rene MD Procedures None recorded. Surgeries None recorded. Imaging Electrocardiogram 04/21/2019 [facility] ([facility]) [facility] Medications Name Start Date aspirin 81 mg po daily with food Astepro 0.15 % (205.5 mcg) nasal spray [place] 1 spray twice a day by intranasal route for 30 days. atenolol 50 mg tablet TAKE 1 TABLET BY MOUTH ONCE DAILY azelastine 137 mcg (0.1 %) nasal spray a erosol 1 SPRAY IN EACH NOSTRIL TWICE A DAY fluticasone propionate 50 mcg/actuation nasal spray,suspension [place] 1 spray twice a day by intranasal route for 90 days. gabapentin 300 mg capsule Take 1 capsule every day by oral route at bedtime for 30 days. glimepiride 4 mg tablet TAKE 1 TABLET BY MOUTH TWICE DAILY hydrochlorothiazide 12.5 mg capsule Take 1 capsule every day by oral route. lisinopril 10 mg tablet TAKE 1 TABLET BY MOUTH ONCE DAILY FOR 90 DAYS montelukast 10 mg tablet Take 1 tablet every day by oral route in the evening for 90 days. olopatadine 0.6 % nasal spray [place] 2 sprays twice a day by intranasal route for 90 days. pioglitazone 45 mg tablet Take 1 tablet every day by oral route for 90 days. ProAir HFA 90 mcg/actuation aerosol inha ler Inhale 2 puffs 3 times a day by inhalation route for 30 days. Steglatro 5 mg tablet Take 1 tablet every day by oral route for 90 days. sumatriptan 100 mg tablet TAKE 1 TABLET BY MOUTH FOR HEADACHE. TAKE SECOND TABLET 2 HOURS AFTER FIRST DOSE IF HEADACHE PERSISTS. MAX 2 TABLETS IN 24 HOUR PERIOD, AND MAX 4 TABLETS IN ONE MONTH Medications Administered None recorded. Vitals Height Weight BMI Blood Pressure 5 ft 3 in 254 lbs 45 kg/m2 130/82 mm[Hg] Lab Results Date Name Specimen Result Interpretation Description Value Range Status Address 04/21/2019 Glucose, Fingerstick, Blood Blood Glucos e: mg/dl 82 [facility] ([facility]: [address] [facility] [address] Allergies Code Code System Name Reaction Severity Status Onset 2669 RxNorm Codeine Active Monosodium Glutamate Headache Severe Active Problems [...] (Gall Bladder Removal) I nformation not available 04/21/2019 [facility] [address] [facility] [address] [place] [address] (Work Place) Vaccine List Vaccine Type pneumococcal conjugate PCV 13 10/19/20170.5 mL Social History Smoking Status Former Smoker (1 PPD) Past Encounters 04/21/2019 Palpitations; Type 2 Diabetes Mellitus with Multiple Complications; Benign Essential Hypertension; Seasonal Allergic Rhinitis; Malaise and Fatigue; Mixed Hyperlipidemia Masoud Vital MD: [address] [address], Ph. 03/30/2019 Benign Essential Hypertension; Type II Diabetes Mellitus Uncontrolled; Seasonal Allergic Rhinitis; Persistent Cough Masoud Vital MD: [address] [address], [place] [address], Ph. History of Present Illness Note:Woke up 6 am & felt odd & her chest - heat felt like racing & lasted 30 mins. , BROKE OUT INTO SWEATS, did not check sugars. & went back to bed , Feeling tired, drinks 2 cans of soda / day., took 5 hr energy yestwrday. Review of Systems None recorded. Physical Exam General Adult Exam (Female) Reported By: Patient Constitutional: General Appearance: well-dev eloped, morbidly obese. Level of Distress: NAD. Ambulation: ambulating normally Psychiatric: Insight: poor insight. Menta l Status: active and alert, normal mood, normal affect; mostly talking constantly. Orientation: to time, to place, to person [...] tenderness. Extremities: no cyanosis, no edema, no varicosities Neurologic: Gait and Station: normal gai t, normal station. Cranial Nerves: grossly intact. Sensation: grossly intact Skin: Inspection and palpation: no rash, no lesions, no abnormal nevi, good turgor, no jaundice. Nails: normal Back: Thoracolumbar Appearance: no rmal curvature
--- OUTSIDE RECORDS SUMMARY | 2020-06-21 08:44 | XMS REPORT | Encounter Summary ---
Author Organization Unknown Address [address] [place] [address] Phone [phone] Care Team Providers Care Operator Vacuum Name Role Phone Dr. Masoud Vital 3 [phone] Masoud Vital MD 3 [phone] Reason for Visit Telemedicine Visit Instructions 1. Acute dermatitis triamcinolone acetonide 0.1 % topical cream prednisone 20 mg tablet Pepcid 40 mg tablet 2. Benign essential hypertension atenolol 50 mg tablet hydrochlorothiazide 12.5 mg capsule lisinopril 10 mg tablet 3. Type 2 diabetes mellitus with multipl e complications Januvia 100 mg tablet pioglitazone 45 mg tablet 4. Migraine sumatriptan 100 mg tablet Discussion Note: None recorded. Patient educational handouts: No information available. Plan of Care Reminders Provider Appointments None recorded. Lab None recorded. Referral None recorded. Procedures None recorded. Surgeries None recorded. Imaging None recorded. Medications Name Start Date aspirin 81 mg po alt days with food atenolol 50 mg tablet Take 1 tablet every day by oral route. fluticasone propionate 50 mcg/actuation nasal spray,suspension [place] 1 spray twice a day by intranasal route for 90 days. hydrochlorothiazide 12.5 mg capsule Take 1 capsule every day by oral route. Januvia 100 mg tablet Take 1 tablet every day by oral route. lisinopril 10 mg tablet Take 1 tablet every day by oral route. Lumigan 0.01 % eye drops montelukast 10 mg tablet Take 1 tablet every day by oral route in the evening for 91 days. Pepcid 40 mg tablet Take 1 tablet every day by oral route for 10 days. pioglitazone 45 mg tablet Take 1 tablet every day by oral route. prednisone 20 mg tablet Take 1 tablet every day by oral route after meals for 5 days. sumatriptan 100 mg tablet TAKE 1 TABLET BY MOUTH FOR HEADACHE. TAKE SECOND TABLET 2 HOURS AFTER FIRST DOSE IF HEADACHE PERSISTS. MAX OF 2 TABLETS IN 24 HOUR PERIOD, AND MAX OF 4 TABLETS IN ONE MONTH triamcinolone acetonide 0.1 % topical cr eam APPLY A THIN LAYER TO THE AFFECTED AREA(S) BY TOPICAL ROUTE 2 TIMES PER DAY Medications Administered None recorded. Vitals Height 5 ft 3 in Results Lab Results None recorded. 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 Elevated Liver Enzymes Level Active 10/18/2017 Left Side Sciatica Active 01/18/2019 Type 2 Diabetes Mellitus with Multiple Complications Active 03/30/2019 Osteopenia Active 08/28/2019 Seasonal Allergy Active 11/22/2019 Procedures Date Name Performed by 11/01/2009 Eye Surgery Information not avai lable 11/01/1988 Orthopedic Surgery Information not avai lable Cervical Laminoplsty 2/> Seg Information not available Hemorrhoidectomy Information not avai lable Appendectomy Information not avai lable Cholecystectomy (Gall Bladder Removal) I nformation not available Vaccine List Vaccine Type pneumococcal conjugate PCV 13 10/19/20170.5 mL Social History Tobacco Smoking Status Former Smoker (1 PPD) Past Encounters 02/03/2020 Acute Dermatitis; Benign Essential Hypertension; Type 2 Diabetes Mellitus with Multiple Complications; Migraine Gabriele Mejia MD: [address] [facility], [address], [place] [address], Ph. History of Present Illness Note:I confirm that I received verbal consent from the patient for the virtual visit.<div>
</div><div>evaluation of rash</div><div>rash started yesterday< /div><div>itchy</div><div>no fever</div><div>no lip/tongue swelling</div><div> started Terbinafine 2 weeks ago</div><div>no cp</div><div>no sob</div><div>
< /div><div>Also, follow up on DM, HTN and migraine</div><div>doing well on current medications</div><div>not checking bs or BP at home</div> Review of Systems Comprehensive General Adult ROS Reported By: Patient Constitutional: Constitutional: no fever, no exercise intolerance Cardiovascular: Cardiovascular: no chest jcarlos n, no palpitations Respiratory: Respiratory: no cough, no sh ortness of breath Gastrointestinal: Gastrointestinal: no abdomin al pain Integumentary: Skin: rash Neurologic: Neurologic: no weakness, no numbness Psychiatric: Psych: no depression, no anx iety Physical Exam Cardiology Exam Reported By: Patient Constitutional: Level of Distress: comfortab le Psychiatric: Mental Status: alert, normal affect. Orientation: oriented to time, place, and person. Insight: good judgment Notes: slight erythematous rash on face, trunk, and extremities
--- OUTSIDE RECORDS SUMMARY | 2020-06-21 08:44 | XMS REPORT | Encounter Summary ---
Author Organization Unknown Address [address] [place] [address] Phone [phone] Care Team Providers Care Title Coordinator Name Role Phone Dr. Masoud Vital 3 [phone] Masoud Vital MD 3 [phone] Reason for Visit hypertension; diabetes Instructions 1. Pain of right shoulder joint 2. 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 Pure hypercholesterolemia lipid panel, serum 5. Benign essential hypertension CMP, serum or plasma CBC w/ auto diff urinalysis, dipstick atenolol 50 mg tablet hydrochlorothiazide 12.5 mg capsule lisinopril 10 mg tablet 6. Screening for malignant neoplasm of c susuon fecal occult blood, stool 7. Migraine sumatriptan 100 mg tablet 8. Influenza vaccination declined 9. Acute urinary tract infection culture, urine 10. Seasonal allergic rhinitis montelukast 10 mg tablet 11. Mass of soft tissue US, chest wall - Rt upper chest next t o Rt side of neck 12. Localized swelling, mass and lump, u pper limb US, upper arm - Mass over triceps area in Rt arm Discussion Note: None recorded. Patient educational handouts: No information available. Plan of Care Reminders Provider Appointments None recorded. Lab HbA1C (Hemoglobin a1C), Blood 11/22/2019 [facility] - Laboratory Microalbumin/creatinine, Mass Ratio, Urine 11/22 [facility] Medical - Laboratory CMP, Serum or Plasma 11/22/2019 [facility] ical - Laboratory CBC W/ Auto Diff 11/22/2019 [facility] Medical - Laboratory Urinalysis, Dipstick 11/22/2019 [facility] ical - Hobby Lipid Panel, Serum 11/22/2019 [facility] Medic al - Laboratory Fecal Occult Blood, Stool 11/22/2019 [facility] Medical - Laboratory Culture, Urine 11/22/2019 [facility] Medical - Laboratory Referral Diabetic Ophthalmology Referral 11/22/2019 Magno Dillard MD Procedures None recorded. Surgeries None recorded. Imaging US, Upper Arm 11/22/2019 [facility] US, Chest Wall 11/22/2019 [facility] Radiology Medications Name Start Date aspirin 81 mg po alt days with food atenolol 50 mg tablet Take 1 tablet every day by oral route. fluticasone propionate 50 mcg/actuation nasal spray,suspension [place] 1 spray twice a day by intranasal [...] route in the evening for 91 days. pioglitazone 45 mg tablet Take 1 tablet every day by oral route. sumatriptan 100 mg tablet TAKE 1 TABLET BY MOUTH FOR HEADACHE. TAKE SECOND TABLET 2 HOURS AFTER FIRST DOSE IF HEADACHE PERSISTS. MAX OF 2 TABLETS IN 24 HOUR PERIOD, AND MAX OF 4 TABLETS IN ONE MONTH Medications Administered None recorded. Vitals Height Weight BMI Blood Pressure 5 ft 3 in 259 lbs 45.9 kg/m2 134/84 mm[Hg] Results Lab Results Date Name Specimen Result Interpretation Description Value Range Status Address 11/22/2019 Urinalysis, Dipstick Color Color yellow [facility]: [address], [place] Color Appearance clear [facility]: [address], [place] Color Glucose negative [facility]: [address], [place] Color Bilirubin negative [facility]: [address], [place] Color Ketones negative [facility]: [address], [place] Color Specific [place] 1.025 [facility]: [address], [place] Color Blood trace [facility]: [address], [place] Color PH 6.0 [facility]: [address], [place] Color Protein negative [facility]: [address], [place] Color Urobilinogen 0.2 [facility]: [address], [place] Color Nitrites negative [facility]: [address] [facility] 5, [place] Color Leukocytes trace [facility] [address] [facility] 5, [place] Allergies Code Code System Name Reaction Severity Status Onset 2670 RxNorm Codeine Active 53039 RxNorm Gabapentin Active Monosodium Glutamate Headache Severe Active Problems Name Status Onset Date Source Disorder of Achilles Tendon Active 06/01/2017 Proteinuric Nephropathy Due to Diabetes Mellitus Active 10/18/2017 Migraine Active 10/18/2017 Benign Essential [...] (Gall Bladder Removal) I nformation not available 11/22/2019 US, Upper Arm [address] [id number] (Work Place) 11/22/2019 US, Chest Wall [address] [id number] (Work Place) Vaccine List Vaccine Type pneumococcal conjugate PCV 13 10/19/20170.5 mL Social History Tobacco Smoking Status Former Smoker (1 PPD) Past Encounters 11/22/2019 Pain of Right Shoulder Joint; Type 2 Diabetes Mellitus with Multiple Complications; 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 History of Present Illness Hypertension Reported By: Patient Notes: No chest pain , no shortness of breath, no palpitations ,no dizziness , no diaphoresis , no weakness or numbness in arms or legs , no visual loss . Note:Here to get med refills , c/o lump on Rt shoulder close to RT side of neck x 2 mths , ? sometims gets bigger than deflates later Also similar Lump on back of Rt arm - 2 mths ago , ? 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 Physical Exam General Adult Exam (Female) Reported By: Patient Constitutional: General Appearance: well-dev eloped, morbidly obese. Level of Distress: NAD. Ambulation: ambulating normally Psychiatric: Insight: good judgement. Men jarod Status: active and alert, normal mood, normal affect. Orientation: to time, to place, to person Head: Head: normocephalic, atrauma tic Eyes: Lids and Conjunctivae: non-i njected, no discharge, no pallor; allergic shiners undr both eyes. Pupils: PERRLA. Corneas: grossly intact. EOM: EOMI. Lens: clear. Sclerae: non-icteric ENMT: Ears: no lesions on external ear, EACs clear, TM bulging. Hearing: no hearing loss. Nose: no lesions on external nose, nares patent, no septal deviation, nasal passages clear, no sinus tenderness, no nasal discharge. Lips, Teeth, and Gums: no mouth or lip ulcers, no bleeding gums, normal dentition. Oropharynx: moist mucous membranes, no erythema, no exudates, tonsils not enlarged; crowded pharynx Neck: Neck: supple, trachea midlin e, no [...] and Tone: nor mal motor strength, normal tone; Fullness in RT infraclavicular area, soft , no discomfort or mass palpable. Joints, Bones, and Muscles: normal movement of all extremities, no bony abnormalities, no contractures, no malalignment, no tenderness. Extremities: no cyanosis, no edema, no varicosities; soft tissue mass palpable along the lenth of the Rt arm approximately 14 cm x 5 cm , non tender Neurologic: Gait and Station: normal gai t, normal station. Cranial Nerves: grossly intact. Sensation: grossly intact Skin: Inspection and palpation: no rash, no lesions, no abnormal nevi, good turgor, no jaundice. Nails: normal Back: Thoracolumbar Appearance: no rmal curvature
--- OUTSIDE RECORDS SUMMARY | 2020-06-21 08:44 | XMS REPORT | Encounter Summary ---
Author Organization Unknown Address [address] [place] [address] Phone [phone] Care Team Providers Care Aligner Name Role Phone Dr. Masoud Vital 3 [phone] Masoud Vital MD 3 [phone] Reason for Visit sinus symptoms; Right ear pain/problem Instructions 1. Type II diabetes mellitus uncontrolle d glucose, fingerstick, blood 2. Seasonal allergic rhinitis Astepro 0.15 % (205.5 mcg) nasal spray 3. Benign essential hypertension Discussion Note f/u in 3 mths Patient educational handouts: No information available. Plan of Care Reminders Provider Appointments Est Patient on or around 05/03/2019 Masoud Vital MD Lab Glucose, Fingerstick, Blood 02/08/2019 [facility] Ref[facility] None recorded. Procedures None recorded. Surgeries None recorded. Imaging None recorded. Medications Name Start Date aspirin 81 mg po daily with food Astepro 0.15 % (205.5 mcg) nasal spray [place] 1 spray twice a day by intranasal route for 30 days. atenolol 50 mg tablet Take 1 tablet every day by oral route. fluticasone propionate 50 mcg/actuation nasal spray,suspension [place] 1 spray twice a day by intranasal [...] day by oral route for 90 days. montelukast 10 mg tablet Take 1 tablet [...] tablet TAKE 1 TABLET BY MOUTH FOR HEADACHE, TAKE SECOND TABLET 2 HOURS AFTER FIRST DOSE IF HEADACHE PERSIST. MAX 200 MG IN 24 HOUR PERIOD. AND MAX 400 MG IN ONE MONTH. Medications Administered None recorded. Vitals Height Weight BMI Blood Pressure 5 ft 3 in 246 lbs 43.6 kg/m2 130/72 mm[Hg] Lab Results Date Name Specimen Result Interpretation Description Value Range Status Address 02/01/2019 Glucose, Fingerstick, Blood Blood Glucos e: mg/dl 367 [facility]: [address] [place] [address], [place] 02/01/2019 [facility], Throat Strep negat daniel [facility]: [address] [place] [address], [place] 01/22/2019 Spirometry Spirometry: PRE [facility]: [address] [place] [address] Fev1: [facility]: [address] [place] [address] Fvc: [facility] Fa [facility]: [address] [place] [address] Restriction: MILD (FVC 65-80% predic moi) [facility]: [address] [place] [address] [facility] [address] [place] [address] Notes: [facility]: [address] [place] [address], [place] 01/17/2019 HbA1C (Hemoglobin a1C), Blood High Hemoglobin a1C 9.3 % of total HGB <5.7 % of total HGB [facility] [address] [address], [place] EAG (mg/dL) 220 (calc) Final [facility] Laboratory: [address] EAG (mmol/L) 12.2 (calc) Alicia l [facility] Laboratory: [address] [address], [place] 01/17/2019 Lipid Panel, Serum Normal Cholesterol, Tota l 158 mg/dL <200 mg/dL Final [facility] Labo ratory: [address] [address], [place] Normal HDL Cholesterol 55 mg/dL >50 mg/dL F inal [facility] Laboratory: [address] High Triglycerides 161 mg/dL <150 mg/dL F inal [facility] Laboratory: [address] Normal LDL-cholesterol 76 mg/dL (calc) Final [facility] Laboratory: [address] Normal Chol/hdlc Ratio 2.9 (calc) <5.0 (evangelina c) Final [facility] Laboratory: [address] Normal Non HDL Cholesterol 103 mg/dL (calc) <130 mg/dL (calc) Final [facility] [address] [facility] 01/[facility]2019 CMP, Serum or Plasma High Glucose 232 mg/dL 65-99 mg/dL Final [facility] Laboratory: [address] Normal Urea Nitrogen (BUN) 17 mg/dL 7-25 mg /dL Final [facility] Laboratory: [address] Normal Creatinine 0.69 mg/dL 0.50-0.99 mg/d L Final [facility] Laboratory: [address] Normal eGFR Non-afr. [place] 92 mL/m in/1.73m2 > or = 60 mL/min/1.73m2 Final [facility] Labo ratory: [address] Normal eGFR 107 mL/m in/1.73m2 > or = 60 mL/min/1.73m2 Final [facility] Labo ratory: [address] BUN/creatinine Ratio not applicable (calc) 6-22 (calc) Final [facility] Laboratory: [address] Normal Sodium 137 mmol/L 135-146 mmol/L [facility] Laboratory: [address] Normal Potassium 3.9 mmol/L 3.5-5.3 mmol/L Final [facility] Laboratory: [address] Low Chloride 97 mmol/L 98-110 mmol/L [facility] Laboratory: [address] Normal Carbon Dioxide 30 mmol/L 20-32 mmol/ L Final [facility] Laboratory: [address] Normal Calcium 9.1 mg/dL 8.6-10.4 mg/dL [facility] Laboratory: [address] [place] Normal Protein, Total 6.9 g/dL 6.1-8.1 g/dL Final [facility] Laboratory: [address] [place] Normal Albumin 4.0 g/dL 3.6-5.1 g/dL Final [facility] Laboratory: [address] [place] Normal Globulin 2.9 g/dL (calc) 1.9-3.7 g/d L (calc) Final [facility] Laboratory: [address] [place] Normal Albumin/globulin Ratio 1.4 (calc) 1. 0-2.5 (calc) Final [facility] Laboratory: [address] [place] Normal Bilirubin, Total 0.3 mg/dL 0.2-1.2 m g/dL Final [facility] Laboratory: [address] [place] Normal Alkaline Phosphatase 128 U/L 33-130 U/L Final [facility] Laboratory: [address] [place] Normal Ast 33 U/L 10-35 U/L Final [facility] Laboratory: [address] [place] High Alt 31 U/L 6-29 U/L Final [facility] Laboratory: [address] [place] 01/17/2019 CBC W/ Auto Diff Normal White Blood Cell Co unt 8.9 thousand/uL 3.8-10.8 thousand/uL Final [facility] Lab[facility]atory: [address] [place] Normal Red Blood Cell Count 4.58 mill ion/uL 3.80-5.10 million/uL Final [facility] Laboratory: [address] [place] Normal Hemoglobin 13.9 g/dL 11.7-15.5 g/dL Final [facility] Laboratory: [address] [place] Normal Hematocrit 41.3 % 35.0-45.0 % Final [facility] Laboratory: [address] [place] Normal Mcv 90.2 fL 80.0-100.[address] [facility] Laboratory: [address] [place] Normal Mch 30.3 pg 27.0-33.0 pg Final [facility] Laboratory: [address] Normal Mchc 33.7 g/dL 32.0-36.0 g/dL Final [facility] Laboratory: [address] Normal Rdw 12.1 % 11.0-15.0 % Final [facility] Laboratory: [address] [place] Normal Platelet Count 261 thousand/uL 140-4 00 thousand/uL Final [facility] Laboratory: [address] [place] Normal Mpv 12.1 fL 7.5-12.5 fL Final [facility] Laboratory: [address] [place] Normal Absolute Neutrophils 5242 cells/uL 1 500-7800 cells/uL Final [facility] Laboratory: [address] [place] Normal Absolute Lymphocytes 2848 cells/uL 8 50-3900 cells/uL Final [facility] Laboratory: [address] [place] Normal Absolute Monocytes 507 cells/uL 200- 950 cells/uL Final [facility] Laboratory: [address] [place] Normal Absolute Eosinophils 214 cells/uL 15 -500 cells/uL Final [facility] Laboratory: [address] [place] Normal Absolute Basophils 89 cells/uL 0-200 cells/uL Final [facility] Laboratory: [address] Normal Neutrophils 58.9 % Final [facility] Laboratory: [address] [place] Normal Lymphocytes 32.0 % Final [facility] Laboratory: [address] Normal Monocytes 5.7 % Final [facility] Laboratory: [address] [place] Normal Eosinophils 2.4 % Final [facility] Laboratory: [address] [place] Normal Basophils 1.0 % Final [facility] Laboratory: [address] 01/17/2019 Microalbumin:creatinine Ratio, Urine Normal Creatinine, Random Urine 100 mg/dL 20-275 mg/dL Final [facility] Laboratory: [address] [place] Normal Microalbumin 0.7 mg/dL see note: mg/ dL Final [facility] Laboratory: [address] [place] Normal Microalbumin/creatinine Ratio, Random Urine 7 mcg/mg creat <30 mcg/mg creat Final [facility] Labo ratory: [address] [facility] 418[facility] 01/17/2019 Glucose, Fingerstick, Blood Blood Glucos e: mg/dl 272 [facility]: [address] Glucose, Fingerstick, Blood Blood Glucose: m g/dl 206 [facility]: [address] Allergies Code Code System Name Reaction Severity Status Onset 2669 RxNorm Codeine Active Monosodium Glutamate Headache Severe Active Problems Name Status Onset Date Source Disorder of Achilles Tendon Active 06/01/2017 Type II Diabetes Mellitus Uncontrolled Active 7 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 Migraine Active 10/18/2017 Benign Essential Hypertension Active 10/18/2017 Elevated Liver Enzymes Level Active 10/18/2017 Left Side Sciatica Active 01/18/2019 Procedures Date Name Performed by 11/01/1988 Orthopedic Surgery Information not avai lable Cervical Laminoplsty 2/> Seg Information not available Hemorrhoidectomy Information not avai lable Appendectomy Information not avai lable Cholecystectomy (Gall Bladder Removal) I nformation not available 01/17/2019 MAMMO, Screening, Bilateral [facility] [address] [facility] [address] [place] [address] (Work [address]) Vaccine List Vaccine Type pneumococcal conjugate PCV 13 10/19/20170.5 mL Social History Smoking Status Former Smoker (1 PPD) Past Encounters 02/08/2019 Type II Diabetes Mellitus Uncontrolled; Seasonal Allergic Rhinitis; Benign Essential Hypertension Masoud Vital MD: [address] [phone], Ph. 02/01/2019 Pain in Throat; Type II Diabetes Mellitus Uncontrolled; Hypertriglyceridemia; Benign Essential Hypertension; Elevated Liver Enzymes Level; Seasonal Allergic Rhinitis Masoud Vital MD: [address] [phone], Ph. 01/17/2019 Type II Diabetes Mellitus Uncontrolled; Proteinuric Diabetic Nephropathy; Benign Essential Hypertension; Cough; Screening for Malignant Neoplasm of Colon; Screening for Malignant Neoplasm of Breast; Chronic Obstructive Lung Disease; Left Side Sciatica Masoud Vital MD: [address] [facility], [address], [place] [address], Ph. History of Present Illness Note:Here because her Rt ear is hurting & going to Rt side of neck & , low grade temp , x 3-4 day s. pnd ++, will not check blood sugars , No chest pain , no shortness of breath, no palpitations ,no dizziness , no diaphoresis , no weakness or numbness in arms or legs , no visual loss . no muscle aches , n o muscle weakness Review of Systems:ROS as noted in the HPI Review of Systems None recorded. Physical Exam General Adult Exam (Female) Reported By: Patient Constitutional: General Appearance: well-dev eloped, morbidly obese. Level of Distress: mild distress. Ambulation: ambulating normally Psychiatric: Insight: poor insight. [...]
--- OUTSIDE RECORDS SUMMARY | 2020-06-21 08:44 | XMS REPORT | Encounter Summary ---
Author Organization Unknown Address [address] [place] [address] Phone [phone] Care Team Providers Care Horse Riding Coach Or Instructor Name Role Phone Dr. Masoud Vital 3 [phone] Masoud Vital MD 3 [phone] Reason for Visit AWV Annual Wellness Visit Female (VFP); Advance Care Plan; Right knee pain/problem Instructions 1. Adult health examination visual acuity 2. Advance directive discussed with lupe ent advance care planning: care instructio ns 3. Depression screening 4. Screening for malignant neoplasm of b reast MAMMO, screening, digital, bilateral - *Please call the patient and schedule* 5. Screening for osteoporosis bone density - *Please call the patien t and schedule* 6. Screening for malignant neoplasm of c olon fecal occult blood, stool 7. Immunization refused 8. Type 2 diabetes mellitus with multipl e complications glucose, fingerstick, blood diabetic ophthalmology referral - *Ple ase call the patient and make an appointment* PLEASE SEND BACK CONSULT NOTES TO [phone] 9. Benign essential hypertension 10. Elevated liver enzymes level 11. Morbid obesity learning about healthy weight 12. Migraine with aura 13. Pain in right knee orthopedic referral - *Please call the patient and make an appointment* PLEASE SEND BACK CONSULT NOTES TO [phone] diclofenac 1 % topical gel Medrol (Randy) 4 mg tablets in a dose pa ck Discussion Note f/u in 3 mths Encouraged to get the Flu vaccine in Jul - Aug 15, 2019. Plan of Care Patient Instructions It was good to see you in the office [place]au pl[place] for your Medicare Annual Wellness Visit. You have been provided some information on healthy nutrition, including a diet rich in fruits and vegetables, minimizing simple carbohydrates, salt, and saturated fats. I want to encourage regular cardiovascular exercise such as walking at least 30 minutes daily, 5 times per week. Please remember to schedule any preventive health measures that we talked about today. You have also been provided education on fall prevention and community- based lifestyle interventions to help reduce health risks and promote healthy living in your Annual Wellness folder. Screening Recommendations 1. Vaccines Pneumonia: pt declined Influenza: Recommended today 2. Mammography Screening: Ordered 3. Colorectal Cancer Screenin. Annual Depression Screening 5. Annual Alcohol Screening 6. Annual Fall Risk Screening 7. Annual Health Risk Assessment Patient Instructions on Filing Advance Directives Be sure that you have easy access to your paperwork for your medical power of prototype fabricator and advanced directives. Be sure that the designated person as well as important family members have copies of those forms as well. Please have contact information of your designee readily available. In the event of hospitalization, please bring those important documents with you for reference. Reminders Provider Appointments Est Patient on or around 09/30/2019 Masoud Vital MD Lab Fecal Occult Blood, Stool 06/30/2019 [facility] Laboratory Glucose, Fingerstick, Blood 06/30/2019 [facility] ([facility]) Hobby Referral Diabetic Ophthalmology Referral 06/30/2019 Magno Dillard MD Orthopedic Referral 06/30/2019 Pb carter MD Procedures None recorded. Surgeries None recorded. Imaging MAMMO, Screening, Digital, Bilateral 06/30/2019 [facility] Bone Density 06/30/[address] [facility] st Medications Name Start Date aspirin 81 mg po alt days with food atenolol 50 mg tablet TAKE 1 TABLET BY MOUTH ONCE DAILY diclofenac 1 % topical gel APPLY 2 GRAMS TO THE AFFECTED AREA(S) BY TOPICAL ROUTE 4 TIMES PER DAY fluticasone propionate 50 mcg/actuation nasal spray,suspension [place] 1 spray twice a day by intranasal route for 90 days. hydrochlorothiazide 12.5 mg capsule TAKE 1 CAPSULE BY MOUTH ONCE DAILY Januvia 100 mg tablet Take 1 tablet every day by oral route. lisinopril 10 mg tablet TAKE 1 TABLET BY MOUTH ONCE DAILY FOR 90 DAYS Medrol (Randy) 4 mg tablets in a dose pack Take as directed montelukast 10 mg tablet Take 1 tablet [...] BMI Blood Pressure 5 ft 3 in 256 lbs 45.3 kg/m2 140/74 mm[Hg] Lab Results Date Name Specimen Result Interpretation Description Value Range Status Address Glucose, Fingerstick, Blood Blood Glucose: m g/dl [address] [facility] ([facility]) Hobby: [address] Allergies Code Code System Name Reaction Severity Status Onset 2670 RxNorm Codeine Active 12450 RxNorm Gabapentin Active Monosodium Glutamate Headache Severe [...] available 06/30/2019 MAMMO, Screening, Digital, Bilateral [facility] [address] [place] [address] (Work [address]) 06/30/2019 Bone Density [facility] [address] [place] [address] (Work Place) Vaccine List Vaccine Type pneumococcal conjugate PCV 13 10/19/20170.5 mL Social History Tobacco Smoking Status Former Smoker (1 PPD) Past Encounters 06/30/2019 Adult Health Examination; Advance Directive Discussed with Patient; Depression Screening; Screening for Malignant Neoplasm of Breast; Screening for Osteoporosis; Screening for Malignant Neoplasm of Colon; Immunization Refused; Type 2 Diabetes Mellitus with Multiple Complications; Benign Essential Hypertension; Elevated Liver Enzymes Level; Morbid Obesity; Migraine with Aura; Pain in Right Knee Masoud Vital MD: [id number], [facility], [place] [address], Ph. History of Present Illness Mini Cog Reported By: Patient Functional Ability: Personal/Social/ Draw a cloc k and write in the numbers in the correct place, and set the time to 10 minutes after 11 o'clock was completed correctly? Yes, 3 word recall: Your nurse or doctor will ask you to remember 3 words. In 5 minutes, they will ask you to repeat them. Patient recalled 3 words Opioid Use Assessment Reported By: Patient Opioid Use Assessment:: Current Use of Opioids : no use of opioids (no further questions required) Note:<div>She was pusing her packing boxes with her Rt leg & foot & felt pain in Rt knee , Swelled up below the Rt knee, DOES not check blood sugars - does not remember arturo blood sugar reading . No chest pain , no shortness of breath, no palpitations ,no dizziness , no diaphoresis , no weakness or numbness in arms or legs , no visual loss . will not take arturo cholesterol meds , [place] end.</div><div> Does not wwant EKG as sh ehad one in 04/2019 </div><div>
</div><div>I'd like to talk about what is ahead with your illness and do some thinking in advance about what is important to you so I can make sure we provide you with the care you want-is that okay? {{Yes*|No}}</div> Review of Systems Comprehensive General Adult ROS Reported By: Patient Physical Exam General Adult Exam (Female) Reported By: Patient Constitutional: General Appearance: well-dev eloped, morbidly obese; bmi - 45.3. Level of Distress: mild distress. Ambulation: ambulating [...] bony abnormalities, no contractures, no malalignment, no tenderness; Rt knee - discomfort over RT patella & along arturo joint line on the Lt lateral side, mild limp in Rt lower extremity. Extremities: no cyanosis, no edema, no varicosities Neurologic: Gait and Station: normal gai t, normal station. Cranial Nerves: grossly intact. Sensation: grossly intact Skin: Inspection and palpation: no rash, no lesions, no abnormal nevi, good turgor, no jaundice. Nails: normal Back: Thoracolumbar Appearance: no rmal curvature Notes: Alert, oriented x 3 , Crania l nerves 2-12 intact , Strength 5/5 in all 4 extremities , Gait - Normal , Speech - normal, Visual mota - Intact , Sensations - intact in all 4 extremities, DTR's - 2 + in all 4 extremities , No tremors, cerebellar signs intact , straight line walking test & finger nose test - normal, Rhomberg- Negative"
--- OUTSIDE RECORDS SUMMARY | 2020-06-21 08:44 | XMS REPORT | Encounter Summary ---
Author Organization Unknown Address [address] [place] [address] Phone [phone] Care Team Providers Care Pumper Head Name Role Phone Dr. Masoud Vital 3 [phone] Masoud Vital MD 3 [phone] Reason for Visit heart palpitations Instructions 1. [...] Fingerstick, Blood 04/21/2019 [facility] ([facility]) Hobby TSH, Serum or Plasma 04/21/2019 [facility] Laboratory CBC W/ Auto Diff 04/21/[address] [facility] Laboratory CMP, Serum or Plasma 04/21/2019 [facility] Laboratory Urinalysis, Dipstick 04/21/2019 [facility] ([facility]) [facility] Lipid Panel, Serum 04/21/2019 [facility] Laboratory HbA1C (Hemoglobin a1C), Blood 04/21/2019 [facility] Laboratory Referral Cardiology Referral 04/21/2019 Allergy Referral 04/21/2019 Procedures None recorded. Surgeries None recorded. Imaging Electrocardiogram 04/21/[address] [facility] ([facility]) [facility] Medications Name Start Date aspirin 81 mg po daily with food Astepro 0.15 % (205.5 mcg) nasal spray Jolo 1 spray twice a day by intranasal route for 30 days. atenolol 50 mg tablet TAKE 1 TABLET BY MOUTH ONCE DAILY azelastine 137 mcg (0.1 %) nasal spray a erosol 1 SPRAY IN EACH NOSTRIL TWICE A DAY fluticasone propionate 50 mcg/actuation nasal spray,suspension [place] 1 spray twice a day by intranasal [...] 90 days. olopatadine 0.6 % nasal spray Jolo 2 sprays twice a day by intranasal [...] lbs 45 kg/m2 130/82 mm[Hg] Lab Results None recorded. Allergies Code Code [...] Removal) I nformation not available 04/21/[address] [facility] ice ([facility]) Hobby [address] [facility] [address] [place] [address] (Work Place) Vaccine List Vaccine Type pneumococcal conjugate PCV 13 10/19/20170.5 mL Social History Smoking Status Former Smoker (1 PPD) Past Encounters 04/21/2019 Palpitations; Type 2 Diabetes Mellitus with Multiple Complications; Benign Essential Hypertension; Seasonal Allergic Rhinitis; Malaise and Fatigue; Mixed Hyperlipidemia Masoud Vital MD: [address], [place] [address], Ph. 03/30/2019 Benign Essential Hypertension; Type II Diabetes Mellitus Uncontrolled; Seasonal Allergic Rhinitis; Persistent Cough Masoud Vital MD: [id number], [facility] [address], [place] [address], Ph. History of Present Illness Note:Woke up [...]
--- OUTSIDE RECORDS SUMMARY | 2020-06-21 08:44 | XMS REPORT | Encounter Summary ---
Author Organization Unknown Address [address] [place] [address] Phone [phone] Care Team Providers Care Stem Roller Operator Name Role Phone Dr. Masoud Vital 3 [phone] Masoud Vital MD 3 [phone] Reason for Visit Benign essential hypertension; Type II d iabetes mellitus uncontrolled; sinus symptoms; sore throat; cough / congestion Instructions 1. Benign essential hypertension 2. Type II diabetes mellitus uncontrolle d diabetic ophthalmology referral FreeStyle Angie 10 Day Sensor kit FreeStyle Angie 10 Day [place] 3. Seasonal allergic rhinitis Medrol (Randy) 4 mg tablets in a dose pa ck 4. Persistent cough Cheratussin AC 10 mg-100 mg/5 mL oral liquid Zithromax Z-Randy 250 mg tablet Discussion Note f/u in 3 mths in May 2019 Patient educational handouts: No information available. Plan of Care Reminders Provider Appointments None recorded. Lab None recorded. Referral Diabetic Ophthalmology Referral 03/30/2019 Magno Dillard MD Procedures None recorded. Surgeries None recorded. Imaging None recorded. Medications Name Start Date aspirin 81 mg po daily with food Astepro 0.15 % (205.5 mcg) nasal spray [place] 1 spray twice a day by intranasal route for 30 days. atenolol 50 mg tablet Take 1 tablet every day by oral route. azelastine 137 mcg (0.1 %) nasal spray a erosol 1 SPRAY IN EACH NOSTRIL TWICE A DAY Cheratussin AC 10 mg-100 mg/5 mL oral li quid Take 10 mL twice a day by oral route as needed for 7 days. No alcohol or driving when on this medicine fluticasone propionate 50 mcg/actuation nasal spray,suspension [place] 1 spray twice a day by intranasal [...] day by oral route for 90 days. Medrol (Randy) 4 mg tablets in a dose pack Take as directed montelukast 10 mg tablet Take 1 tablet every day by oral route in the evening for 90 days. olopatadine 0.6 % nasal spray [place] 2 sprays twice a day by intranasal [...] AND MAX 4 TABLETS IN ONE MONTH Zithromax Z-Randy 250 mg tablet TAKE 2 TABLETS (500 MG) BY ORAL ROUTE ONCE DAILY FOR 1 DAY THEN 1 TABLET (250 MG) BY ORAL ROUTE ONCE DAILY FOR 4 DAYS Medications Administered None recorded. Vitals Height Weight BMI Blood Pressure 5 ft 3 in 251 lbs 44.5 kg/m2 130/70 mm[Hg] Lab Results None recorded. Allergies Code [...] Status Former Smoker (1 PPD) Past Encounters 03/30/2019 Benign Essential Hypertension; Type II Diabetes Mellitus Uncontrolled; Seasonal Allergic Rhinitis; Persistent Cough Masoud Vital MD: [id number], [address], [place] [address], Ph. History of Present Illness Note:Here because of cough since , no fever or chills , using nasal spray x1 mth & on montelukast daily, constantly c/o cough in chest , No chest pain , no shortness of breath, no palpitations ,no dizziness , no diaphoresis , no weakness or numbness in arms or legs , no visual loss . Review of Systems:ROS as noted in the HPI Review of Systems None recorded. Physical Exam General Adult Exam (Female), Upper Respiratory Infection Exam Comprehensive Reported By: Patient Constitutional: General Appearance: well-dev eloped; bmi - 44.5 ( 5 lb wt gain in 1.5 mths ). Level of Distress: mild distress. Ambulation: ambulating normally Psychiatric: Insight: good judgement. [...] deviation, nasal passages clear, no sinus tenderness, nasal discharge--rhinorrhea, post nasal drip. Lips, Teeth, and Gums: no mouth or lip ulcers, no bleeding gums, normal dentition. Oropharynx: moist mucous membranes, no erythema, no exudates, tonsils not enlarged; cobblestone pattern in posterior pharyngeal wall Neck: Neck: supple, trachea midlin e, no [...] Sounds: normal. Inspec tion and Palpation: soft, non-distended, no tenderness, no guarding, no rebound tenderness, no masses, no CVA tenderness. Liver: non-tender, no hepatomegaly Musculoskeletal:: Motor Strength [...]
--- OUTSIDE RECORDS SUMMARY | 2020-06-21 08:44 | XMS REPORT | Encounter Summary ---
Author Organization Unknown Address [address] [place] [address] Phone [phone] Care Team Providers Care Avionics Integration Engineer Name Role Phone Dr. Masoud Vital 3 [phone] Masoud Vital MD 3 [phone] Reason for Visit AWV Annual Wellness Visit [...] appointment* PLEASE SEND BACK CONSULT NOTES TO [phone] 9. Benign essential hypertension 10. Elevated liver enzymes level 11. Morbid obesity learning about healthy weight 12. Migraine with aura 13. Pain in right knee orthopedic referral - *Please call the patient and make an appointment* PLEASE SEND BACK CONSULT NOTES TO [phone] diclofenac 1 % topical gel Medrol (Randy) [...] pt declined Influenza: Recommended today 2. Mammography Screenin. Colorectal Cancer Screenin. Annual Depression Screening 5. Annual Alcohol Screening 6. Annual Fall Risk Screening 7. Annual Health Risk Assessment Patient Instructions on Filing Advance Directives Be sure that you have easy access to your paperwork for your medical power of life consultant and advanced directives. Be sure that the [...] Blood, Stool 06/30/2019 [facility] Laboratory Glucose, Fingerstick, Blood 06/30/2019 [facility] ([facility]) Hobby Referral Diabetic Ophthalmology Referral 06/30/2019 Magno Dillard MD Orthopedic Referral 06/30/2019 Pb carter MD Procedures None recorded. Surgeries None recorded. Imaging MAMMO, Screening, Digital, Bilateral 06/30/2019 [facility] Bone Density 06/30/[address] [facility] [address] Medications Name Start Date aspirin 81 mg po alt days with food atenolol 50 mg tablet TAKE 1 TABLET BY MOUTH ONCE DAILY diclofenac 1 % topical gel APPLY 2 GRAMS TO THE AFFECTED AREA(S) BY TOPICAL ROUTE 4 TIMES PER DAY fluticasone propionate 50 mcg/actuation nasal spray,suspension [place] 1 spray twice a day by intranasal [...] Fingerstick, Blood Blood Glucose: m g/dl 126 [facility] ([facility] Hobby: [address] Allergies Code Code System Name Reaction Severity Status Onset 2670 RxNorm Codeine Active 39838 RxNorm Gabapentin Active Monosodium Glutamate Headache Severe [...] available 06/30/2019 MAMMO, Screening, Digital, Bilateral [facility] [address] [place] [address] (Work [address]) 06/30/2019 Bone Density [facility] [address] [place] [address] (Work Place) Vaccine List Vaccine Type pneumococcal [...] Pain in Right Knee Masoud Vital MD: [id number], [facility] [address], [place] [address], Ph. History of Present Illness Mini Cog [...] knee , Swelled up below the Rt knee DOES not check blood sugars - does not remember [facility] blood sugar reading . </div><div>
</div><div>I'd like to talk about what is ahead with your illness and do some thinking in advance about what is important to you so I can make sure we provide you with the care you want-is that okay? {{Yes*|No}}</div> Review of Systems Comprehensive General Adult ROS Reported By: Patient Physical Exam None recorded."
--- OUTSIDE RECORDS SUMMARY | 2020-06-21 08:44 | XMS REPORT | Encounter Summary ---
Author Organization Unknown Address [address] [place] [address] Phone [phone] Care Team Providers Care Recruiter Account Manager Name Role Phone Dr. Masoud Vital 3 [phone] Masoud Vital MD 3 [phone] Reason for Visit Left hip pain/problem; hypertension; freda betes Instructions 1. Type II diabetes mellitus uncontrolle d type 2 diabetes: care instructions glucose, fingerstick, blood diabetic ophthalmology referral - PL EASE FAX NOTES TO [phone]. glimepiride 4 mg tablet HbA1c (hemoglobin A1c), blood lipid panel, serum 2. Proteinuric diabetic nephropathy microalbumin:creatinine ratio, urine 3. Benign essential hypertension atenolol 50 mg tablet hydrochlorothiazide 12.5 mg capsule CMP, serum or plasma CBC w/ auto diff lisinopril 10 mg tablet 4. Cough spirometry 5. Screening for malignant neoplasm of c olon fecal occult blood, stool 6. Screening for malignant neoplasm of b reast MAMMO, screening, bilateral - PLEASE C ALL PATIENT AND SCHEDULE HER AN APPOINTMENT. PLEASE FAX RESULTS TO [phone]. 7. Chronic obstructive lung disease 8. Left side sciatica gabapentin 300 mg capsule Discussion Note: None recorded. Plan of Care Patient Instructions If you do not hear from us in 1 week aft er the labs are done ,pl call us for results f/u in 1 month. Reminders Provider Appointments None recorded. Lab Glucose, Fingerstick, Blood 01/17/2019 [facility] ([facility] Hobby Fecal Occult Blood, Stool 01/17/2019 [facility] Microalbumin:creatinine Ratio, Urine 01/17/2019 [facility] Laboratory HbA1C (Hemoglobin a1C), Blood 01/17/2019 [facility] Laboratory CMP, Serum or Plasma 01/17/2019 [facility] Laboratory CBC W/ Auto Diff 01/17/2019 [facility] Lipid Panel, Serum 01/17/2019 [facility] Laboratory Referral Diabetic Ophthalmology Referral 01/17/2019 Jaylen Shanks MD Procedures None recorded. Surgeries None recorded. Imaging MAMMO, Screening, Bilateral 01/17/2019 [facility] Medications Name Start Date aspirin 81 mg po daily with food atenolol 50 mg tablet Take 1 tablet every day by oral route. gabapentin 300 mg capsule Take 1 capsule [...] ft 3 in 246 lbs 43.6 kg/m2 (1) 152/94 mm[H g] (2) 150/92 mm[Hg] Lab Results Date Name Specimen Result Interpretation Description Value Range Status Address 01/17/2019 Glucose, Fingerstick, Blood Blood Glucos e: mg/dl [address] [facility] ([facility]) Hobby: [address] [facility] [address], [place] Allergies Code Code System Name Reaction Severity Status Onset 2670 RxNorm Codeine Active Monosodium Glutamate Headache Severe [...] nformation not available 01/17/2019 MAMMO, Screening, Bilateral [facility] [address] [place] [address] (Work Place) Vaccine List Vaccine Type pneumococcal conjugate PCV 13 10/19/20170.5 mL Social History Smoking Status Former Smoker (1 PPD) Past Encounters 01/17/2019 Type II Diabetes Mellitus Uncontrolled; Proteinuric Diabetic Nephropathy; Benign Essential Hypertension; Cough; Screening for Malignant Neoplasm of Colon; Screening for Malignant Neoplasm of Breast; Chronic Obstructive Lung Disease; Left Side Sciatica Masoud Vital MD: [address] [facility], [address], [place] [address], Ph. History of Present Illness Hypertension Reported By: Patient Notes: No chest pain , no shortness of breath, no palpitations ,no dizziness , no diaphoresis , no weakness or numbness in arms or legs , no visual loss . Note:Here to get med refills , no losartan since 4 days , Its on back order. No chest pain , no shortness of breath, no palpitations ,no dizziness , no diaphoresis , no weakness or numbness in arms or legs , no visual loss . C/O lT HIP HURTING A FEW mths , on & off . Took ibuprofen 3/ day & it hrlps a bit . pain - at rest now - 05/10 , Review of Systems:ROS as noted in the HPI Review of Systems None recorded. Physical Exam General Adult Exam (Female) Reported By: Patient Constitutional: General Appearance: well-dev eloped, morbidly obese. Level of Distress: mild distress. Ambulation: ambulating normally Psychiatric: Insight: good judgement; jarod kative. Mental Status: active and alert, normal mood, [...]
--- OUTSIDE RECORDS SUMMARY | 2020-06-21 08:44 | XMS REPORT | Encounter Summary ---
Author Organization Unknown Address [address] [place] [address] Phone [phone] Care Team Providers Care Bird Raiser Name Role Phone Dr. Masoud Vital 3 [phone] Reason for Visit Left side sciatica; TELE-AWV Annual Well ness Visit Female; advance care plan Instructions 1. Adult health examination 2. Advance directive discussed with lupe ent advance care planning: care instructio nolan 3. Depression screening learning about depression 4. Morbid obesity 5. 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 Benign essential hypertension 7. Chronic obstructive lung disease 8. Left side sciatica 9. Claustrophobia Valium 10 mg tablet 10. Pain of right shoulder joint Discussion Note If you do not hear from us in 1 week aft er the labs are done ,pl call us for results Encouraged to get the Flu vaccine in Aug 2020 ( Reason why to get it in Aug 2020 also given / explained ) Inform the Human Factors Advisor Lead - you are going to be groggy . f/u in 3 mths Plan of Care Patient Instructions It was good to speak with you virtually today for your Medicare Annual Wellness Visit. You [...] Wellness folder. Screening Recommendations 1. Vaccines Pneumonia: Ordered Influenza: recommended ( per pt she will not take it ) 2. Mammography Screenin08/2019 - Normal , Rpt in 1 yr 3. Colorectal Cancer Screening: Colonoscopy - polyp in Sigmoid Rpt in 5 yrs 4. Annual Depression Screening 5. Annual Alcohol Screening 6. Annual Fall Risk Screening 7. Annual Health Risk Assessment Patient Instructions on Filing Advance Directives Be sure that you have easy access to your paperwork for your Medical Power of Enchilada Maker and Advanced Directives. Be sure that the designated person as well as important family members have copies of those forms as well. Please have contact information of your designee readily available. In the event of hospitalization, please bring those important documents with you for reference. Please find additional information at [email or web address] Reminders Provider Appointments Nurse Visit 06/07/2020 3:30PM Nurse Bill Youngblood Lab None recorded. Referral Diabetic Ophthalmology Referral 06/04/2020 Magno Dillard MD Procedures None recorded. Surgeries None recorded. Imaging None recorded. Medications Name Start Date aspirin 81 mg poevery other day with food atenolol 50 mg tablet Take 1 tablet by mouth once daily B Complex 1 po qd diphenoxylate-atropine 2.5 mg-0.025 mg t ablet Take 1 tablet 3 times a day by oral route for 5 days. fluticasone propionate 50 mcg/actuation nasal spray,suspension USE 1 SPRAY(S) IN EACH NOSTRIL TWICE DAILY FOR 90 DAYS Ginkoba 1 po qd hydrochlorothiazide 12.5 mg capsule Take 1 capsule every day by oral route. Januvia 100 mg tablet Take 1 tablet every day by oral route. lisinopril 10 mg tablet Take 1 tablet every day by oral route. Lumigan 0.01 % eye drops daily montelukast 10 mg tablet TAKE 1 TABLET BY MOUTH ONCE DAILY IN THE EVENING [place] 3 1000 qd ondansetron 4 mg disintegrating tablet One-A-Day Womens Formula 1 po qd pantoprazole 40 mg tablet,delayed releas e Take 1 tablet every day by oral route for 90 days. pioglitazone 45 mg tablet Take 1 tablet every day by oral route. Restasis 0.05 % eye drops in a dropperet te twice daily sumatriptan 100 mg tablet TAKE 1 TABLET BY MOUTH FOR HEADACHE. TAKE SECOND TABLET 2 HOURS AFTER FIRST DOSE IF HEADACHE PERSISTS. MAX OF 2 TABLETS IN 24 HOUR PERIOD, AND MAX OF 4 TABLETS IN ONE MONTH Suprep Bowel Prep Kit 17.5 gram-3.13 gram-1.6 gram ora l solution terbinafine HCl 250 mg tablet turmeric 1 po qd Valium 10 mg tablet Take 1 hour prior to the test Medications Administered None recorded. Vitals Height 5 ft 3 in Results Lab Results None recorded. 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 Elevated Liver Enzymes Level Active 10/18/2017 Left Side Sciatica Active 01/18/2019 Type 2 Diabetes Mellitus with Multiple Complications Active 03/30/2019 Osteopenia Active 08/28/2019 Seasonal Allergy Active 11/22/2019 Polyp of Colon Active 05/22/2020 Hiatal Hernia Active 05/22/2020 Procedures Date Name Performed by 05/22/2020 Egd Information not avai lable 11/01/2009 Eye Surgery Information not avai lable 11/01/1988 Orthopedic Surgery Information not avai lable Colonoscopy & Polypectomy Information no t available Cervical Laminoplsty /> Seg Information not available Hemorrhoidectomy Information not avai lable Appendectomy Information not avai lable Cholecystectomy (Gall Bladder Removal) I nformation not available Vaccine List Vaccine Type pneumococcal conjugate PCV 13 10/19/20170.5 mL Social History Tobacco Smoking Status Former Smoker (1 PPD) Past Encounters 06/04/2020 Adult Health Examination; Advance Directive Discussed with Patient; Depression Screening; Morbid Obesity; Type 2 Diabetes Mellitus with Multiple Complications; Benign Essential Hypertension; Chronic Obstructive Lung Disease; Left Side Sciatica; Claustrophobia; Pain of Right Shoulder Joint Masoud Vital MD: [id number] [facility], [address], [place] [address], Ph. History of Present Illness Mini Cog [...] use of opioids (no further questions required) Note:I confirm that I received verbal consent from the patient for the virtual visit.
This telemedicine encounter was performed using live {{video and audio 4.15 pm #|video and audio|audio only because either patient did not have technology or unable to connect due to technical problems}}.When the dentist gives 5 mg Of valium its enough & TO be in MRI SHE NEEDS MORE , TRIED last year - without the valium . so had to get out of MRI . Someone has to drive her in Mr.Arthur Degroot. Ortho has not given her th e Valium fo rpt & woll not give her 10 mg / pt as he does not know her.<div> No chest pain , no shortness of breath, no palpitations ,no dizziness , no diaphoresis , no weakness or numbness in arms or legs , no visual loss .no muscle aches , no muscle weakness , f/u with endocrinology .</div><div>A separate service was performed during this encounter for an Annual Wellness Visit.</div><div>
<div ><strong>(for audio only)</strong> Total time spent with patient: {{ }} minutes.
I'd like to talk about what is ahead with your illness and do some thinking in advance about what is important to you so I can make sure we provide you with the care you want-is that okay? {{Yes*|No}}
Do you have a Living Will/Advanced Directive? {{yes|no*}}

Do you have a Medical Power of Enchilada Maker? {{yes|no*}}

How much does your family/caregiver know about your illness/conditions? {{not at all|to a small extent|to some extent|to a moderate extent*|to a great extent}}

Have you had a conversation with your family/caregiver about planning for your future health? {{yes|no*}}
</div>< /div> Review of Systems:ROS as noted in the HPI Review of Systems None recorded. Physical Exam Telemedicine/Virtual Visit Reported By: Patient Constitutional: General Appearance: well-nou rished. Level of Distress: NAD Psychiatric: Insight: good judgement. Men jarod Status: active and alert, normal mood, normal affect. Orientation: to time, to place, to person Head: Head: normocephalic, atrauma tic Eyes: Lids and Conjunctivae: non-i njected, no discharge. EOM: EOMI. Sclerae: non-icteric ENMT: Ears: no lesions on external ear. Hearing: grossly normal. Nose: no lesions on external nose. Lips, Teeth, and Gums: no mouth or lip ulcers. Oropharynx: moist mucous membranes Neck: Neck: supple, FROM Lungs: Respiratory effort: no dyspn ea Neurologic: Coordination and Cerebellum: no tremor Skin: Inspection and palpation: no rash Notes: Alert, oriented , answers q' s appropriately , affect appropriate , neatly dressed , comfortable , looking well , moving both upper extremities well
Cheerful, no conversational dyspnea"
--- OUTSIDE RECORDS SUMMARY | 2020-06-21 08:44 | XMS REPORT | Encounter Summary ---
Author Organization Unknown Address [address] [place] [address] Phone [phone] Care Team Providers Care Non Destructive Testing Engineer Name Role Phone Dr. Masoud Vital 3 [phone] Masoud Vital MD 3 [phone] Reason for Visit Left hip pain/problem; hypertension; freda betes Instructions 1. Type II diabetes mellitus uncontrolle d type 2 diabetes: care instructions glucose, fingerstick, blood diabetic ophthalmology referral glimepiride 4 mg tablet HbA1c (hemoglobin A1c), [...] HER AN APPOINTMENT. PLEASE FAX RESULTS TO [phone]. 7. Chronic obstructive lung disease Discussion Note: None recorded. Plan of Care Patient Instructions Does not want to do labs today will do i n Aug / PT Reminders Provider Appointments Est Patient on or around 02/17/2019 Masoud Vital MD Lab Glucose, Fingerstick, Blood 01/17/2019 [facility] ([facility] Hobby Fecal Occult Blood, Stool 01/17/2019 [facility] Laboratory Microalbumin:creatinine Ratio, Urine 01/17/2019 [facility] Laboratory HbA1C (Hemoglobin a1C), Blood 01/17/2019 [facility] Laboratory CMP, Serum or Plasma 01/17/2019 [facility] Laboratory CBC W/ Auto Diff 01/17/2019 [facility] Laboratory Lipid Panel, Serum 01/17/2019 [facility] y Practice Laboratory Referral Diabetic Ophthalmology Referral 01/17/2019 Jaylen Shanks MD Procedures None recorded. Surgeries None recorded. Imaging MAMMO, Screening, Bilateral 01/17/2019 Chavo Ramirez Medications Name Start Date aspirin 81 mg po daily with food atenolol 50 mg tablet Take 1 tablet every day by oral route. 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 Migraine Active 10/18/2017 Benign Essential Hypertension Active 10/18/2017 Elevated Liver Enzymes Level Active 10/18/2017 Procedures Date Name Performed by 11/01/1988 Orthopedic Surgery Information not avai lable Cervical Laminoplsty 2/> Seg Information not available Hemorrhoidectomy Information not avai lable Appendectomy Information not avai lable Cholecystectomy (Gall Bladder Removal) I nformation not available 01/17/2019 MAMMO, Screening, Bilateral Chavo [facility]ings [facility] [address] [place] [address] (Work Place) Vaccine List Vaccine Type pneumococcal conjugate PCV 13 10/19/20170.5 mL Social History Smoking Status Former Smoker (1 PPD) Past Encounters 01/17/2019 Type II Diabetes Mellitus Uncontrolled; Proteinuric Diabetic Nephropathy; Benign Essential Hypertension; Cough; Screening for Malignant Neoplasm of Colon; Screening for Malignant Neoplasm of Breast; Chronic Obstructive Lung Disease Masoud Vital MD: [id number] [facility], [address], [place] [address], Ph. History of Present Illness Hypertension Reported [...] Review of Systems None recorded. Physical Exam None recorded.
--- OUTSIDE RECORDS SUMMARY | 2020-06-21 08:44 | XMS REPORT ---
Author Organization Unknown Address [address] [place] [address] Phone [phone] Care Team Providers Care Sales Advisory Manager Name Role Phone Masoud Vital Unavailable Unavailable Allergies Code Code System Name Reaction Severity Status Onset 704 RxNorm Codeine Active Medications Name Status Start Date Stop Date aspirin 81 mg po daily with food Active Not available atenolol 25 mg tablet Completed 10/18/2017 atenolol 50 mg tablet TAKE ONE TABLET BY MOUTH ONCE DAILY. NEEDS APPT Active Not available Basaglar KwikPen U-100 Insulin 100 unit/ mL (3 mL) subcutaneous Inject 30 units by subcutaneous route for 30 days. Start at 12 units & increase by 2 units evry 2 days till fasting Bloos sugar is 120 or less Active Not available benzonatate 200 mg capsule Completed 10/18 Cheratussin AC 10 mg-100 mg/5 mL oral li quid Take 10 mL every 24 hours by oral route at bedtime for 7 days. No alcohol or driving when on thi smedicine Completed 01/19/2018 fluticasone 50 mcg/actuation nasal spray ,suspension [place] 1 spray twice a day by intranasal route for 90 days. Completed 01/19/2018 glimepiride 4 mg tablet Take 1 tablet twice a day by oral route for 90 days. Completed 02/03/2018 hydrochlorothiazide 12.5 mg capsule TAKE ONE CAPSULE BY MOUTH ONCE DAILY Active No t available latanoprost 0.005 % eye drops Active No t available losartan 50 mg tablet Take 1 tablet every day by oral route for 90 days. Active Not available Medrol (Randy) 4 mg tablets in a dose pack UD Completed 01/19/2018 ProAir HFA 90 mcg/actuation aerosol inha ler Inhale 2 puffs every 6 hours by inhalation route for 30 days. 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 Migraine Active 10/18/2017 Benign Essential Hypertension Active 10/18/2017 Elevated Liver Enzymes Level Active 10/18/2017 Procedures Date Name Performed by Cervical Laminoplsty 2/> Seg Notes: CERVICAL FUSION C4- C5 Information not available Hemorrhoidectomy Information not avai lable Appendectomy Information not avai lable Cholecystectomy Information not avai lable 05/03/2017 XR, Ankle, 3 or More [facility] [place] [facility] [address] [place], [place] [id number] (Work Place) 06/17/2017 MAMMO, Screening, Bilateral [facility] [address] [facility] [address] [place], [place] [id number] (Work Place) 01/19/2018 Electrocardiogram [facility] 8951 [facility] 5 [place] [id number] (Work Place) Lab Results Date Name Specimen Result Interpretation Description Value Range Status Address 01/20/2018 Electrocardiogram Rate & Rhythm 55/min, RRR [facility]: [address] Qrs [facility]: [address] [place] Interval [facility]: [address] QRS Duration [facility] p-[facility]obby: [address] QT Interval [facility]: [address] 01/19/2018 HbA1C (Hemoglobin a1C), Blood High Hemoglobin a1C 8.3 % of total HGB <5.7 % of total HGB [facility]: [address] [address], [place] EAG (mg/dL) 192 (calc) [facility] Laboratory: [address] EAG (mmol/L) 10.6 (calc) Alicia stevie [facility] Laboratory: [address] [address], [place] 01/19/2018 SAMANTHA (Antinuclear Antibodies) Igg, Ifa, Serum No rmal SAMANTHA Screen, Ifa negative negative Final [facility] Laboratory: [address] 01/19/2018 Ferritin, Serum or Plasma Normal Ferritin 213 NG/mL 20-288 NG/mL Final [facility] Lab[facility] ratory: [address] 01/19/2018 Iron + Total Iron-binding Capacity (TIBC), Serum Normal Iron, Total 79 mcg/dL 45-160 mcg/dL Final [facility] Laboratory: [address] Normal Iron Binding Capacity 281 mcg/ dL (calc) 250-450 mcg/dL (calc) Final [facility] Laboratory: [address] Normal % Saturation 28 % (calc) 11-50 % (ca lc) Final [facility] Laboratory: [address] 01/19/2018 Hepatitis Panel (A+B+C), Acute, Serum Normal Hepatitis a IgM non-reactive non-reactive Final [facility]: [address] [place] [address] Normal Hepatitis B Surface Antigen non-reac tive non-reactive Final [facility] Laboratory: [address] Confirmation Prelimina ry [facility] Laboratory: [address] Normal Hepatitis B Core Antibody (IgM) non-reactive non-reactive [facility] Laboratory: [address] [place] [address] Normal Hepatitis C Antibody non-reactive no n-reactive [facility] Laboratory: [address] [place] [address] Normal Signal to Cut-off 0.01 <1.00 Alicia l [facility] Laboratory: [address] 10/18/2017 CBC W/ Auto Diff High Wbc 10.37 x10*3/ L 3.98-10.04 x10*3/L Final [facility] Laboratory: [address] Rbc 4.66 10*12/L 3.93-5.22 10*12/L [facility] Laboratory: [address] Hemoglobin 14.30 g/dL 11.20-15.70 g/ dL Final [facility] Laboratory: [address] Hematocrit 42.9 % 34.1-44.9 % Final [facility] Laboratory: [address] [place] Mcv 92.1 fL 80.0-100.0 fL Final Vi [facility] Laboratory: [address] [place] Mch 30.7 pg 25.6-32.[address] [facility] Laboratory: [address] [facility] Mchc 33.3 g/dL 32.2-35.5 g/dL Final [facility] Laboratory: [address] [place] RDW-SD 41.9 fL 36.4-46.3 fL Final V [facility] Laboratory: [address] [facility] Platelet Count 292.0 k/uL 182.0-369. 0 k/uL Final [facility] Laboratory: [address] [facility] High Mpv 12.3 fL 7.5-11.5 fL Final [facility] Laboratory: [address] [facility] Neut% 61.7 % 34.0-71.1 % Final [facility] Laboratory: [address] [facility] Lymph% 29.0 % 19.3-51.7 % Final [facility] Laboratory: [address] [facility] Mon% 6.8 % 4.7-12.5 % Final [facility] Laboratory: [address] [facility] Eos% 1.7 % 0.7-5.8 % Final [facility] Laboratory: [address] [facility] Baso% 0.8 % 0.1-1.2 % Final [facility] Laboratory: [address] [facility] High Neut# 6.4 x10*3/L 1.6-6.1 x10*3/L Final [facility] Laboratory: [address] [facility] Lymph# 3.0 x10*3/L 1.2-3.7 x10*3/L Final [facility] Laboratory: [address] [facility] Mon# 0.7 x10*3/L 0.2-0.9 x10*3/L F inal [facility] Laboratory: [address] [facility] Eos# 0.18 x10*3/L 0.04-0.36 x10*3/ L Final [facility] Laboratory: [address] [place] Baso# 0.08 x10*3/L 0.01-0.08 x10*3/ L Final [facility] Laboratory: [address] [place] 10/18/2017 CMP, Serum or Plasma Alt 50 U/L 0-55 U /L Final [facility] Laboratory: [address] [place] [address] High Ast 56 U/L 5-34 U/L Final [facility] Laboratory: [address] [place] [address] Bun 15.8 mg/dL 9.8-20.1 mg/dL Final [facility] Laboratory: [address] [place] [address] Alk Phos 111 unit/L 40-150 unit/L [facility] Laboratory: [address] [place] [address] High Glucose 174 mg/dL 70-99 mg/dL Final [facility] Laboratory: [address] Albumin 3.8 g/dL 3.5-5.0 g/dL Final [facility] Laboratory: [address] Creatinine 0.83 mg/dL 0.57-1.11 mg/d L Final [facility] Laboratory: [address] eGFR Non- >60 mL/min/1.73m2 >60 mL/min/1.73m2 Final [facility] Laboratory: [address] Total Bilirubin 0.5 mg/dL 0.2-1.2 mg /dL Final [facility] Laboratory: [address] eGFR - >60 mL/min/1 .73m2 >60 mL/min/1.73m2 Final [facility] Laboratory: [address] [place] [address] Sodium 140 mEq/L 136-145 mEq/L Final [facility] Laboratory: [address] Potassium 4.5 mEq/L 3.5-5.1 mEq/L [facility] Laboratory: [address] Chloride 101 mmol/L 98-107 mmol/L [facility] Laboratory: [address] Total Protein 7.4 g/dL 6.4-8.3 g/dL Final [facility] Laboratory: [address] Calcium 9.4 mg/dL 8.4-10.2 mg/dL Fin [facility] Laboratory: [address] Co2 28.5 mmol/L 23.0-31.0 mmol/L [facility] Laboratory: [address] Anion Gap 11 calc Final [facility] Laboratory: [address] [place] [address], [place] 10/18/2017 HbA1C (Hemoglobin a1C), Blood High A1C W/ eag 8.8 % 1.0-5.7 % Final [facility] Laboratory: [address] Average Blood Glucose 206 mg/dL Final [facility] Laboratory: [address] 05/03/2017 CBC W/ Auto Diff White Blood Cell Co unt tnp thousand/uL [facility] Laboratory: [address] 05/03/2017 CMP, Serum or Plasma Alt 25 U/L 0-55 U /L Final [facility] Laboratory: [address] Ast 26 U/L 5-34 U/L [facility] Laboratory: [address] Bun 14.6 mg/dL 9.8-20.1 mg/dL Final [facility] Laboratory: [address] Alk Phos 104 unit/L 40-150 unit/L [facility] Laboratory: [address] Glucose 74 mg/dL 70-99 mg/dL Final [facility] Laboratory: [address] Albumin 3.8 g/dL 3.5-5.0 g/dL Final [facility] Laboratory: [address] Creatinine 0.81 mg/dL 0.57-1.11 mg/d L Final [facility] Laboratory: [address] eGFR Non- >60 mL/min/1.73m2 >60 mL/min/1.73m2 Final [facility] Laboratory: [address] Total Bilirubin 0.4 mg/dL 0.2-1.2 mg /dL Final [facility] Laboratory: [address] eGFR - >60 mL/min/1 .73m2 >60 mL/min/1.73m2 Final [facility] Laboratory: [address] [place] [address], [place] Sodium 142 mEq/L 136-145 mEq/L Final [facility] Laboratory: [address] [place] [address], [place] Potassium 4.3 mEq/L 3.5-5.1 mEq/L [facility] Laboratory: [address] [place] [address], [place] Chloride 100 mmol/L 98-107 mmol/L [facility] Laboratory: [address] [place] [address], [place] Total Protein 7.4 g/dL 6.4-8.3 g/dL Final [facility] Laboratory: [address] Calcium 9.5 mg/dL 8.4-10.2 mg/dL [facility] Laboratory: [address] [place] [address], [place] Co2 28.9 mmol/L 23.0-31.0 mmol/L [facility] Laboratory: [address] Anion Gap 13 calc Final [facility] Laboratory: [address] 05/03/2017 Lipid Panel, Serum Hdl 48 mg/dL 40-60 mg/dL [facility] Laboratory: [address] High Triglyceride 169 mg/dL 0-149 mg/dL F [facility] Laboratory: [address] VLDL Calc. 34 mg/dL Final [facility] Laboratory: [address] cholesterol/HDL Ratio 4 mg/dL Final [facility] Laboratory: [address] non-HDL Cholesterol Calc. 122 mg/dL 0-160 mg/dL Final [facility] Laboratory: [address] Cholesterol 170 mg/dL 0-199 mg/dL [facility] Laboratory: [address] LDL Calc. 88 mg/dL 0-130 mg/dL Final [facility] Laboratory: [address] 05/03/2017 TSH, Serum or Plasma Tsh 0.980 uI U/mL 0.350-4.940 uIU/mL Final [facility] Laboratory: [address] [address], [place] 05/03/2017 HbA1C (Hemoglobin a1C), Blood High A1C W/ eag 7.6 % 1.0-5.7 % Final [facility] Laboratory: [address] Average Blood Glucose 171 mg/dL Final [facility] Laboratory: [address] 05/03/2017 Urinalysis, Dipstick No observation recor ded. Glucose, Fingerstick, Blood Blood Glucose: m g/dl 186 [facility]: [address] Glucose, Fingerstick, Blood Blood Glucose: m g/dl 83 [facility]: [address] Past Encounters 02/02/2018 Type II Diabetes Mellitus Uncontrolled; Screening for Malignant Neoplasm of Colon; Glaucoma Screening; Benign Essential Hypertension Masoud Vital MD: [address] [address], [place]. 01/19/2018 Benign Essential Hypertension; Elevated Liver Enzymes Level; Migraine; Depression Screening; Screening for Disorder; Screening for Malignant Neoplasm of Colon; Immunization Refused; Palpitations; Type 2 Diabetes Mellitus with Multiple Complications; Chronic Obstructive Lung Disease Masoud Vital MD: [address] [address], [place]. 10/18/2017 Seasonal Allergic Rhinitis; Cough; Chronic Obstructive Lung Disease; Benign Essential Hypertension; Migraine; Type II Diabetes Mellitus Uncontrolled; Immunization Refused; Immunization; Upper Respiratory Infection Masoud Vital MD: [address], [address] [address], Ph. Social History Smoking Status Former Smoker (1 PPD) Vaccine List Vaccine Type pneumococcal conjugate PCV 13 10/19/20170.5 mL Plan of Care Patient Instructions D/w pt if getting worse - pl call office / go to ER. Pt wanted med refills as she was running out of meds & will start new ins & not sure if she will be able to f/u in our office with her new ins. Reminders Provider Appointments None recorded. Lab None recorded. Referral None recorded. Procedures None recorded. Surgeries None recorded. Imaging None recorded. Vitals 02/02/2018 11:45AM Work In Same Day Height Weight BMI Blood Pressure 5 ft 3 in 249 lbs 44.1 kg/m2 132/84 mm[Hg] 01/19/2018 12:15PM Work In Same Day Height Weight BMI Blood Pressure 5 ft 3 in 249 lbs 44.1 kg/m2 138/80 mm[Hg] 10/18/2017 03:00PM Est Patient Height Weight BMI Blood Pressure 5 ft 3 in 227 lbs 40.2 kg/m2 (1) 164/110 mm[ Hg] (2) 142/90 mm[Hg]
--- OUTSIDE RECORDS SUMMARY | 2020-06-21 08:44 | XMS REPORT | Encounter Summary ---
Author Organization Unknown Address [address] [place] [address] Phone [phone] Care Team Providers Care Shingles Roofer Helper Name Role Phone Dr. Masoud Vital 3 [phone] Masoud Vital MD 3 [phone] Reason for Visit heart palpitations Instructions 1. [...] Vital MD Lab Glucose, Fingerstick, Blood 04/21/2019 [facility] ([facility]obby TSH, Serum or Plasma 04/21/[address] [facility] Laboratory CBC W/ Auto Diff 04/21/2019 [facility] Laboratory CMP, Serum or Plasma 04/21/[address] [facility] Laboratory Urinalysis, Dipstick 04/21/[address] [facility] ([facility]) [facility] Lipid Panel, Serum 04/21/2019 [facility] Laboratory HbA1C (Hemoglobin a1C), Blood 04/21/2019 [facility] Referral Cardiology Referral 04/21/2019 [facility] Allergy Referral 04/21/2019 Estela Rene MD Procedures None recorded. Surgeries None recorded. Imaging Electrocardiogram 04/21/2019 [facility] ([facility]) [facility] Medications Name Start Date aspirin 81 mg po daily with food Astepro 0.15 % (205.5 mcg) nasal spray [place] 1 spray twice a day by intranasal route for 30 days. atenolol 50 mg tablet TAKE 1 TABLET BY MOUTH ONCE DAILY azelastine 137 mcg (0.1 %) nasal spray a erosol 1 SPRAY IN EACH NOSTRIL TWICE A DAY fluticasone propionate 50 mcg/actuation nasal spray,suspension [place] 1 spray twice a day by intranasal [...] 90 days. olopatadine 0.6 % nasal spray [place] 2 sprays twice a day by intranasal [...] Result Interpretation Description Value Range Status Address 04/23/2019 Electrocardiogram Rate & Rhythm 61/ min , rrr [facility] ([facility]) [facility]obby: [phone] [facility], [place] Qrs [facility] ([facility]) [facility]: [address] [address], [place] Interval [facility] ([facility]) [facility]obby: [address] [address], [place] QRS Duration Vi [facility] (Vf) Hobby: [address] [address], [place] QT Interval [facility] (Vf) [facility]obby: [address] [address], [place] 04/21/2019 Urinalysis, Dipstick Color Color [facility] ([facility]) [facility]obby: [address] [facility], [place] Color Appearance [facility] ([facility]) [facility]: [address] [address], [place] Color [facility] [address] [address], [place] 04/21/2019 Glucose, Fingerstick, Blood Blood Glucos e: mg/dl 82 [facility] ([facility]) Hobby: [address] [address], [place] Allergies Code Code System Name Reaction Severity [...] Removal) I nformation not available 04/21/2019 Electro[facility]ogram [facility] (p[facility]obby [address] [facility] 5 [place] [address] (Work Place) Vaccine List Vaccine Type pneumococcal conjugate PCV 13 10/19/20170.5 mL Social History Smoking Status Former Smoker (1 PPD) Past Encounters 04/21/2019 Palpitations; Type 2 Diabetes Mellitus with Multiple Complications; Benign Essential Hypertension; Seasonal Allergic Rhinitis; Malaise and Fatigue; Mixed Hyperlipidemia Masoud Vital MD: [address], [address], [place] [address], Ph. 03/30/2019 Benign Essential Hypertension; Type II Diabetes Mellitus Uncontrolled; Seasonal Allergic Rhinitis; Persistent Cough Masoud Vital MD: [address], [address], [place] [address], Ph. History of Present Illness Note:Woke up [...]
--- OUTSIDE RECORDS SUMMARY | 2020-06-21 08:44 | XMS REPORT | Encounter Summary ---
Author Organization Unknown Address [address] [place] [address] Phone [phone] Care Team Providers Care Retail Sales Professional Name Role Phone Dr. Masoud Vital 3 [phone] Masoud Vital MD 3 [phone] Reason for Visit sinus symptoms; sore throat Instructions 1. Pain in throat rapid strep group A, throat Zithromax Z-Randy 250 mg tablet 2. Type II diabetes mellitus uncontrolle d type 2 diabetes: care instructions glucose, fingerstick, blood 3. Benign essential hypertension Steglatro 5 mg tablet pioglitazone 45 mg tablet 4. Hypertriglyceridemia 5. Elevated liver enzymes level 6. Seasonal allergic rhinitis fluticasone propionate 50 mcg/actuatio n nasal spray,suspension montelukast 10 mg tablet prednisone 20 mg tablet Discussion Note Reviewed all labs with pt. Copy of labs given to pt D/w pt treatment plan, meds, how they work & side effects. Answered all questions to pt's satisfaction. f/u in 3 mths Plan of Care Reminders Provider Appointments Est Patient on or around 05/03/2019 Masoud Vital MD Lab Glucose, Fingerstick, Blood 02/01/2019 [facility] ([facility]) [facility] Rapid Strep Group a, Throat 02/01/2019 [facility] ([facility]) [facility] Referral None recorded. Procedures None recorded. Surgeries None recorded. Imaging None recorded. Medications Name Start Date aspirin 81 mg po daily with food atenolol 50 mg tablet Take 1 tablet every day by oral route. fluticasone propionate 50 mcg/actuation nasal spray,suspension [place] 1 spray twice a day by intranasal [...] day by oral route for 90 days. prednisone 20 mg tablet Take 1 tablet every day by oral route after meals for 5 days. ProAir HFA 90 mcg/actuation aerosol inha [...] AND MAX 400 MG IN ONE MONTH. Zithromax Z-Randy 250 mg tablet TAKE 2 TABLETS (500 MG) BY ORAL ROUTE ONCE DAILY FOR 1 DAY THEN 1 TABLET (250 MG) BY ORAL ROUTE ONCE DAILY FOR 4 DAYS Medications Administered None recorded. Vitals Height Weight BMI Blood Pressure 5 ft 3 in 247 lbs 43.8 kg/m2 122/78 mm[Hg] Lab Results Date Name Specimen Result Interpretation Description Value Range Status Address 01/22/2019 Spirometry Spirometry: PRE [facility] ([facility]) Hobby: [address] [place] [address] Fev1: [facility] ([facility]) Hobby: [address] [place] [address] Fvc: [facility] ([facility]) Hobby: [address] [place] [address] Restriction: MILD (FVC 65-80% predic moi) [facility] ([facility]) Hobby: [address] [place] [address] Obstruction: Vi llage [facility] ([facility]) Hobby: [address] [place] [address] Notes: [facility] ([facility]) Hobby: [address] [place] [address] 01/17/2019 HbA1C (Hemoglobin a1C), Blood High Hemoglobin a1C 9.3 % of total HGB <5.7 % of total HGB [facility] [address] EAG (mg/dL) 220 (calc) Final [facility] Laboratory: [address] EAG (mmol/L) 12.2 (calc) Alicia l [facility] Laboratory: [address] 01/17/2019 Lipid Panel, Serum Normal Cholesterol, Tota l 158 mg/dL <200 mg/dL Final [facility] Labo ratory: [address] Normal HDL Cholesterol 55 mg/dL >50 mg/dL F [facility] Laboratory: [address] High Triglycerides 161 mg/dL <150 mg/dL F [facility] Laboratory: [address] Normal LDL-cholesterol 76 mg/dL (calc) Final [facility] Laboratory: [address] Normal Chol/hdlc Ratio 2.9 (calc) <5.0 (evangelina c) Final [facility] Laboratory: [address] Ni rubén [address] Normal Non HDL Cholesterol 103 mg/dL (calc) <130 mg/dL (calc) Final [facility] Laboratory: [address] [place] [address] 01/17/2019 CMP, Serum or Plasma High Glucose 232 mg/dL 65-99 mg/dL Final [facility] Laboratory: [address] Normal Urea Nitrogen (BUN) 17 mg/dL 7-25 mg /dL Final [facility] Laboratory: [address] rubén [address] Normal Creatinine 0.69 mg/dL 0.50-0.99 mg/d L Final [facility] Laboratory: [address] Normal eGFR Non-afr. Japanese 92 mL/m in/1.73m2 > or = 60 mL/min/1.73m2 Final [facility] Labo ratory: [address] Normal eGFR 107 mL/m in/1.73m2 > or = 60 mL/min/1.73m2 Final [facility] Labo ratory: [address] Ni rubén [address] BUN/creatinine Ratio not applicable (calc) 6-22 (calc) Final [facility] Laboratory: [address] Normal Sodium 137 mmol/L 135-146 mmol/L [facility] Laboratory: [address] Normal Potassium 3.9 mmol/L 3.5-5.3 mmol/L Final [facility] Laboratory: [address] Low Chloride 97 mmol/L 98-110 mmol/L [facility] Laboratory: [address] [place] Normal Carbon Dioxide 30 mmol/L 20-32 mmol/ L Final [facility] Laboratory: [address] [place] Normal Calcium 9.1 mg/dL 8.6-10.4 mg/dL [facility] Laboratory: [address] [place] Normal Protein, Total 6.9 g/dL 6.1-8.1 g/dL Final [facility] Albumin 4.0 g/dL 3.6-5.1 g/dL Final [facility] Laboratory: [address] [place] Normal Globulin 2.9 g/dL (calc) 1.9-3.7 g/d L (calc) Final [facility] Laboratory: [address] [place] Normal Albumin/globulin Ratio 1.4 (calc) 1. 0-2.5 (calc) Final [facility] Laboratory: [address] [place] Normal Bilirubin, Total 0.3 mg/dL 0.2-1.2 m g/dL Final [facility]055 [facility] Normal Alkaline Phosphatase 128 U/L 33-130 U/L Final [facility]: [facility] Normal Ast 33 U/L 10-35 U/L Final [facility]: [facility] High Alt 31 U/L 6-29 U/L Final [facility] Laboratory: [address] [place] 01/17/2019 CBC W/ Auto Diff Normal White Blood Cell Co unt 8.9 thousand/uL 3.8-10.8 thousand/uL Final [facility] Labo ratory: [address] [place] Normal Red Blood Cell Count 4.58 mill ion/uL 3.80-5.10 million/uL Final [facility]: [facility] Normal Hemoglobin 13.9 g/dL 11.7-15.5 g/dL Final [facility]: [facility] Normal Hematocrit 41.3 % 35.0-45.0 % Final [facility] Laboratory: [address] Chidi Norris Normal Mcv 90.2 fL 80.0-100.0 fL Final [facility] Laboratory: 9055 [address] Normal Mch 30.3 pg 27.0-33.0 pg Final [facility] Laboratory: 9055 Chidi Norris Normal Mchc 33.7 g/dL 32.0-36.0 g/dL Final [facility] Laboratory: 9055 Chidi Norris Normal Rdw 12.1 % 11.0-15.0 % Final [facility] Laboratory: 9055 Chidi Norris Normal Platelet Count 261 thousand/uL 140-4 00 thousand/uL Final [facility] Laboratory: 9055 Chidi Norris Normal Mpv 12.1 fL 7.5-12.5 fL Final [facility] Laboratory: 9055 Ch[address] Normal Absolute Neutrophils 5242 cells/uL 1 500-7800 cells/uL Final [facility] Laboratory: 9055 Chidi Norris Normal Absolute Lymphocytes 2848 cells/uL 8 50-3900 cells/uL Final [facility] Laboratory: 9055 Chidi Norris Normal Absolute Monocytes 507 cells/uL 200- 950 cells/uL Final [facility] Laboratory: [address] [place] Normal Absolute Eosinophils 214 cells/uL 15 -500 cells/uL Final [facility] Laboratory: [address] [place] Normal Absolute Basophils 89 cells/uL 0-200 cells/uL Final [facility] Laboratory: 9055 Chidi Norris Normal Neutrophils 58.9 % Final [facility] Laboratory: 9055 Chidi Norris Normal Lymphocytes 32.0 % Final [facility] Laboratory: 9055 Chidi Norris Normal Monocytes 5.7 % Final [facility] Laboratory: [address] [place] Normal Eosinophils 2.4 % Final [facility] Laboratory: [address] [place] Normal Basophils 1.0 % Final [facility] Laboratory: 9055 Chidi Norris 01/17/2019 Microalbumin:creatinine Ratio, Urine Normal Creatinine, Random Urine 100 mg/dL 20-275 mg/dL Final [facility] Laboratory: [address] Normal Microalbumin 0.7 mg/dL see note: mg/ dL Final [facility] Laboratory: [address] Normal Microalbumin/creatinine Ratio, Random Urine 7 mcg/mg creat <30 mcg/mg creat Final [facility] Labo ratory: [address] 01/17/2019 Glucose, Fingerstick, Blood Blood Glucos e: mg/dl [address] [place] [address] (p) Hobby: [address] Allergies Code Code System Name Reaction [...] MAMMO, Screening, Bilateral [facility] [address] [facility] [address] [place] [address] (Work Place) Vaccine List Vaccine Type pneumococcal conjugate PCV 13 10/19/20170.5 mL Social History Smoking Status Former Smoker (1 PPD) Past Encounters 02/01/2019 Pain in Throat; Type II Diabetes Mellitus Uncontrolled; Hypertriglyceridemia; Benign Essential Hypertension; Elevated Liver Enzymes Level; Seasonal Allergic Rhinitis Masuod Vital MD: [id number], [address] [address], Ph. 01/17/2019 Type II Diabetes Mellitus Uncontrolled; Proteinuric Diabetic Nephropathy; Benign Essential Hypertension; Cough; Screening for Malignant Neoplasm of Colon; Screening for Malignant Neoplasm of Breast; Chronic Obstructive Lung Disease; Left Side Sciatica Masoud Vital MD: [id number] [address], Ph. History of Present Illness Note:Here because her allergies gotten worse , since lats night her throat got raspy 7 burning & dry throat , Woke her up in arturo middle of night & used water & peroxide & spit out phleghm, fever & chills thi иван , paun in throat - 3/, constant throat clearing++.<div>Does not check her blood sugars at all</div><div>Wants to discuss labs , No chest pain , no shortness of breath, no palpitations ,no dizziness , no diaphoresis , no weakness or numbness in arms or legs , no visual loss .</div> Review of Systems:ROS as noted in the HPI Review of Systems None recorded. Physical Exam General Adult Exam (Female) Reported By: Patient Constitutional: General Appearance: well-dev eloped, morbidly obese. Level of Distress: moderate distress. Ambulation: ambulating normally Psychiatric: Insight: poor insight. Menta l Status: active and alert, normal mood, normal affect. Orientation: to time, to place, to person Head: Head: normocephalic, atrauma tic Eyes: Lids and Conjunctivae: non-i njected, no discharge, no pallor; mild allergic shiners elsa. Pupils: PERRLA. Corneas: grossly intact. EOM: EOMI. Lens: clear. Sclerae: non-icteric ENMT: Ears: no lesions on external ear, EACs clear, TM bulging. Hearing: no hearing loss. Nose: no lesions on external nose, nares patent, no septal deviation, nasal passages clear, no sinus tenderness, nasal discharge--rhinorrhea. Lips, Teeth, and Gums: no mouth or [...]
--- OUTSIDE RECORDS SUMMARY | 2020-06-21 08:44 | XMS REPORT | Encounter Summary ---
Author Organization Unknown Address [address] [place] [address] Phone [phone] Care Team Providers Care Fabrication Technician Name Role Phone Dr. Masoud Vital 3 [phone] Reason for Visit Migraine; Type 2 diabetes mellitus with multiple complications; Benign essential hypertension; fatigue; Bilateral abdominal pain; headaches; diarrhea; Telemedicine Visit Instructions 1. Benign essential hypertension 2. Type 2 diabetes mellitus with multipl e complications 3. Migraine 4. Occult blood in stools gastroenterology referral - Please call patient to schedule 5. Diarrhea Lomotil 2.5 mg-0.025 mg tablet 6. Morbid obesity 7. Chronic obstructive lung disease Discussion Note Encouraged to get the Flu vaccine in Aug 2020 ( Reason why to get it in Aug 2020 also given / explained ) f/u in 1 mths Patient educational handouts: No information available. Plan of Care Reminders Provider Appointments Telemedicine 15 on or around 05/24/2020 Masoud Vital MD Lab None recorded. Referral Gastroenterology Referral 04/04/2020 Domenico Smith MD Procedures None recorded. Surgeries None recorded. Imaging None recorded. Medications Name Start Date aspirin 81 mg poevery other day with food atenolol 50 mg tablet Take 1 tablet every day by oral route. B Complex 1 po qd fluticasone propionate 50 mcg/actuation nasal spray,suspension [place] 1 spray twice a day by intranasal route for 90 days. Ginkoba 1 po qd hydrochlorothiazide 12.5 mg capsule Take 1 capsule every day by oral route. Januvia 100 mg tablet Take 1 tablet every day by oral route. lisinopril 10 mg tablet Take 1 tablet every day by oral route. Lomotil 2.5 mg-0.025 mg tablet Take 1 tablet 3 times a day by oral route for 5 days. Lumigan 0.01 % eye drops daily montelukast 10 mg tablet Take 1 tablet every day by oral route in the evening for 91 days. [place] 3 1000 qd One-A-Day Womens Formula 1 po qd pioglitazone 45 mg tablet Take 1 tablet every day by oral route. Restasis 0.05 % eye drops in a dropperet te twice daily sumatriptan 100 mg tablet TAKE 1 TABLET BY MOUTH FOR HEADACHE. TAKE SECOND TABLET 2 HOURS AFTER FIRST DOSE IF HEADACHE PERSISTS. MAX OF 2 TABLETS IN 24 HOUR PERIOD, AND MAX OF 4 TABLETS IN ONE MONTH turmeric 1 po qd Medications Administered None recorded. Vitals Height 5 ft 3 in Results Lab Results None recorded. Allergies Code Code System Name Reaction Severity Status Onset 2670 RxNorm Codeine Active 56854 RxNorm Gabapentin Active Monosodium Glutamate Headache Severe Active 61356 RxNorm Terbinafine Hives Active Problems Name Status [...] Status Former Smoker (1 PPD) Past Encounters 04/04/2020 Benign Essential Hypertension; Type 2 Diabetes Mellitus with Multiple Complications; Migraine; Occult Blood in Stools; Diarrhea; Morbid Obesity; Chronic Obstructive Lung Disease Masoud Vital MD: [id number] [facility], [address], [place] [address], Ph. History of Present Illness Note:I confirm that I received verbal consent from the patient for the virtual visit.
This telemedicine encounter was performed using live {{video and audio at 11.57 am#|video and audio|audio only because either patient did not have technology or unable to connect due to technical problems}}.
<strong>(for audio only)</strong> Total time spent with patient: {{ }} minutes. diarrhea since 2nd & head ached , DIARRHEA - 15 EPISODES , watery diarrhea , ate noodles last night , no vomiting , no sick contacts , no visible blood , TOOk her reg meds no cough , no difficulty breathing<div>Fever - felt warm </div><div >Diet - regular diet .</div><div>No chest pain , no shortness of breath, no palpitations ,no dizziness , no diaphoresis , no weakness or numbness in arms or legs , no visual loss .no muscle aches , no muscle weakness</div> Review of Systems:ROS as noted in the HPI Review of Systems None recorded. Physical Exam Telemedicine/Virtual Visit Reported By: Patient Constitutional: General Appearance: morbidly obese Psychiatric: Mental Status: active and al ert, normal mood, normal affect. Orientation: to time, [...] oriented , answers q' s appropriately , neatly dressed , comfortable , looking well , moving both upper extremities well
Affect approptriate
Cheerful, no conversational dyspnea"
[2020-06-21 08:46] LABS: BASOPHILS # (AUTO) 0.1 (0.0-0.1); BASOPHILS % 0.6 % (0.0-1.0); EOSINOPHILS % 0.4 % (0.0-6.0); HEMOGLOBIN 13.6 g/dL (12.0-16.0); LYMPHOCYTES # (AUTO) 1.4 (1.0-3.2); LYMPHOCYTES % 12.7 % (18.0-39.1); MEAN CORPUSCULAR HEMOGLOBIN 30.3 pg (28-32); MEAN CORPUSCULAR HGB CONC 32.4 g/dL (31-35); MEAN CORPUSCULAR VOLUME 93.5 fL (81-99); MONOCYTES # (AUTO) 0.5 (0.2-0.8); MONOCYTES % 4.8 % (4.4-11.3); NEUTROPHILS # (AUTO) 8.6 (2.1-6.9); PLATELET COUNT 248 x10e3/uL (140-360); RED BLOOD COUNT 4.49 x10e6/uL (3.6-5.1); RED CELL DISTRIBUTION WIDTH 12.8 % (11.7-14.4)
[2020-06-21 08:56] LABS: BILIRUBIN,URINE NEGATIVE (NEGATIVE); CLARITY,URINE CLEAR (CLEAR); COLOR,URINE YELLOW (YELLOW); KETONES,URINE 1+ (NEGATIVE); LEUKOCYTE ESTERASE ,URINE NEGATIVE (NEGATIVE); NITRITE,URINE NEGATIVE (NEGATIVE); PROTEIN,URINE DIPSTICK TRACE (NEGATIVE); URINE UROBILINOGEN 0.2 mg/dL (0.2 - 1)
[2020-06-21 09:00] LABS: INR 0.94
[2020-06-21 09:01] LABS: PARTIAL THROMBOPLASTIN TIME 38.7 seconds (23.8-35.5)
[2020-06-21 09:09] LABS: BACTERIA,URINE FEW /HPF; CALCIUM OXALATE CRYSTALS,UR FEW (FEW); EPITHELIAL CELLS,URINE RARE /LPF; RBC,URINE 0-5 /HPF (0-5); WBC,URINE (MAN) 0-5 /HPF (0-5)
[2020-06-21 09:11] LABS: ALBUMIN 4.2 g/dL (3.5-5.0); ALBUMIN/GLOBULIN RATIO 1.2 (0.8-2.0); ANION GAP 16.5 mmol/L (8-16); CALCIUM 9.8 mg/dL (8.4-10.2); CREATININE, SERUM 0.98 mg/dL (0.57-1.11); POTASSIUM 3.5 mmol/L (3.5-5.1)
--- NOTE | 2020-06-21 09:13 | Diagnostic Imaging Report ---
EXAMINATION: CHEST SINGLE (PORTABLE) INDICATION: Abdominal pain COMPARISON: None FINDINGS: LINES/TUBES:None LUNGS:The lungs are well-inflated. No focal consolidation or pulmonary edema. PLEURA:No pleural effusion or pneumothorax. MEDIASTINUM:The cardiomediastinal silhouette is magnified by portable technique. BONES/SOFT TISSUES:No acute osseous injury. ABDOMEN:No free air under the diaphragm. IMPRESSION: No focal pneumonia or pulmonary edema. Signed by: Meceh Adler MD on 06/21/2020 9:10 AM
[2020-06-21 09:21] LABS: CREATINE KINASE MB 0.8 ng/mL (0-5.0)
[2020-06-21] MEDS ORDERED: MORPHINE SULFATE INJ 4 MG/ML INJ 1ML IV STA (09:28)
[2020-06-21] MEDS ORDERED: PROMETHAZINE 12.5MG/ NACL 0.9% 12.5 MG/50 ML BAG IV ONE (09:30)
--- NOTE | 2020-06-21 09:41 | Emergency Department Note ---
History of Present Illnes History of Present Illness Chief Complaint: Abdominal Complaints History of Present Illness This is a 65 year old female 2 MONTHS INTERMITTENT ABDOMINAL PAIN. PATIENT WITH DIFFUSE ABDOMINAL PAIN THAT RADIATES TO BACK. POSITIVE NAUSEA, AND HAD CONSTIPATION LAST WEEK. PAIN HAS BEEN CONSTANT SINCE LAST NIGHT. PATIENT SEEN BY DR. MCKEON AND HAD UPPER/LOWER GI. Historian: Patient Arrival Mode: Car Additional Treatment HUMAN SERVICES CARE SPECIALIST: NONE Door Paneler Required: No Onset (how long ago): month(s) (>3 MONTHS) Location: DIFFUSE Quality: PAIN Radiation: Reports back Severity: severe Onset quality: gradual Duration (how long): month(s) Timing of current episode: intermittent Progression: worsening Chronicity: chronic Context: Denies recent illness Relieving factors: none Exacerbating factors: none Associated symptoms: Reports other (NAUSEA) Treatments prior to arrival: none Past Medical/Family History Physician Review I have reviewed the patient's past medical and family history. Any updates have been documented here. Past Medical History Recent Fever: No Clinical Suspicion of Infectio: No New/Unexplained Change in Ment: No Past Medical History: Hypertension, Diabetes, GERD Other Medical History: HIATAL HERNIA, GASTRITIS Past Surgical History: Cholecysctectomy, T&A Other Surgery: FX PELVIS C4-5 BONE FUSION HEMORRHOID Social History Smoking Cessation: Former smoker Counseling Performed: No Alcohol Use: None Any Illegal Drug Use: No TB Exposure/Symptoms: No Physically hurt or threatened: No Family History Family history of heart diseas: No Other Any Pre-Existing Lines (PICC,: No Review of Systems Review of Systems Constitutional: Reports no symptoms EENTM: Reports no symptoms Cardiovascular: Reports no symptoms Respiratory: Reports no symptoms Gastrointestinal: Reports as per HPI Genitourinary: Reports no symptoms Musculoskeletal: Reports no symptoms Integumentary: Reports no symptoms Neurological: Reports no symptoms Psychological: Reports no symptoms Endocrine: Reports no symptoms Hematological/Lymphatic: Reports no symptoms Physical Exam Related Data Allergies: Coded Allergies: codeine (Verified Adverse Reaction, Mild, NAUSEA, 06/21/20) Triage Vital Signs Vital Signs Date Time Temp Pulse Resp B/P (MAP) Pulse Ox O2 Delivery O2 Flow Rate FiO2 06/21/20 08:13 98.2 66 18 146/88 100 06/21/20 08:51 Room Air Vital signs reviewed: Yes Physical Exam CONSTITUTIONAL Constitutional: Present well-developed, Present well-nourished, Present morbidly obese HENT HENT: Present normocephalic, Present atraumatic, Present oropharynx clear/moist, Present nose normal HENT L/R: Present left ext ear normal, Present right ext ear normal EYES Eyes: Reports PERRL, Reports conjunctivae normal NECK Neck: Present ROM normal PULMONARY Pulmonary: Present effort normal, Present breath sounds normal CARDIOVASCULAR Cardiovascular: Present regular rhythm, Present heart sounds normal, Present capillary refill normal, Present normal rate GASTROINTESTINAL Abdominal: Present soft, Present bowel sounds normal, Present tender (MILD DIFFUSE); Absent guarding, Absent mass, Absent rebound GENITOURINARY Genitourinary: Present exam deferred SKIN Skin: Present warm, Present dry MUSCULOSKELETAL Musculoskeletal: Present ROM normal NEUROLOGICAL Neurological: Present alert, Present oriented x 3, Present no gross motor or sensory deficits PSYCHOLOGICAL Psychological: Present mood/affect normal, Present judgement normal Results Laboratory Result Diagram: 06/21/20 0815 06/21/20 0815 Laboratory Laboratory Tests Test 06/21/20 08:15 White Blood Count 10.64 x10e3/uL (4.8-10.8) Red Blood Count 4.49 x10e6/uL (3.6-5.1) Hemoglobin 13.6 g/dL (12.0-16.0) Hematocrit 42.0 % (34.2-44.1) Mean Corpuscular Volume 93.5 fL (81-99) Mean Corpuscular Hemoglobin 30.3 pg (28-32) Mean Corpuscular Hemoglobin Concent 32.4 g/dL (31-35) Red Cell Distribution Width 12.8 % (11.7-14.4) Platelet Count 248 x10e3/uL (140-360) Neutrophils (%) (Auto) 81.0 % (38.7-80.0) Lymphocytes (%) (Auto) 12.7 % (18.0-39.1) Monocytes (%) (Auto) 4.8 % (4.4-11.3) Eosinophils (%) (Auto) 0.4 % (0.0-6.0) Basophils (%) (Auto) 0.6 % (0.0-1.0) Neutrophils # (Auto) 8.6 (2.1-6.9) Lymphocytes # (Auto) 1.4 (1.0-3.2) Monocytes # (Auto) 0.5 (0.2-0.8) Eosinophils # (Auto) 0.0 (0.0-0.4) Basophils # (Auto) 0.1 (0.0-0.1) Absolute Immature Granulocyte (auto 0.05 x10e3/uL (0-0.1) Prothrombin Time 13.0 seconds (11.9-14.5) Prothromb Time International Ratio 0.94 Activated Partial Thromboplast Time 38.7 seconds (23.8-35.5) Urine Color Yellow (YELLOW) Urine Clarity Clear (CLEAR) Urine pH 5.5 (5 - 7) Urine Specific [place] >=1.030 (1.010-1.025) Urine Protein Trace (NEGATIVE) Urine Glucose (UA) Negative (NEGATIVE) Urine Ketones 1+ (NEGATIVE) Urine Blood Small (NEGATIVE) Urine Nitrite Negative (NEGATIVE) Urine Bilirubin Negative (NEGATIVE) Urine Urobilinogen 0.2 mg/dL (0.2 - 1) Urine Leukocyte Esterase Negative (NEGATIVE) Urine RBC 0-5 /HPF (0-5) Urine WBC 0-5 /HPF (0-5) Urine Epithelial Cells Rare /LPF (NONE) Urine Calcium Oxalate Crystals Few (FEW) Urine Bacteria Few /HPF (NONE) Sodium Level 143 mmol/L (136-145) Potassium Level 3.5 mmol/L (3.5-5.1) Chloride Level 103 mmol/L (98-107) Carbon Dioxide Level 27 mmol/L (22-29) Anion Gap 16.5 mmol/L (8-16) Blood Urea Nitrogen 15 mg/dL (7-26) Creatinine 0.98 mg/dL (0.57-1.11) Estimat Glomerular Filtration Rate 57 ML/MIN (60-) BUN/Creatinine Ratio 15 (6-25) Glucose Level 144 mg/dL (74-118) Calcium Level 9.8 mg/dL (8.4-10.2) Total Bilirubin 0.6 mg/dL (0.2-1.2) Aspartate Amino Transf (AST/SGOT) 26 IU/L (5-34) Alanine Aminotransferase (ALT/SGPT) 23 IU/L (0-55) Alkaline Phosphatase 96 IU/L (40-150) Creatine Kinase 104 IU/L (29-168) Creatine Kinase MB 0.80 ng/mL (0-5.0) Troponin I 0.009 ng/mL (0-0.300) Total Protein 7.8 g/dL (6.5-8.1) Albumin 4.2 g/dL (3.5-5.0) Globulin 3.6 g/dL (2.3-3.5) Albumin/Globulin Ratio 1.2 (0.8-2.0) Amylase Level 124 U/L (25-125) Lipase 75 U/L (8-78) Lab results reviewed: Yes Imaging Imaging results reviewed: Yes Procedures 12 Lead ECG Interpretation ECG Interpretation : ECG: ECG 1 Door Paneler: Interpreted by ED physician Date: Jun 21, 2020 Time: 08:41 Rhythm: sinus rhythm Rate: normal (63) QRS axis: normal ST segments normal: Yes T waves normal: Yes Other findings: LVH Clinical Impression: normal ECG Assessment & Plan Medical Decision Making MDM ABD PAIN, SOUNDS CHRONIC BUT IS WORSE SINCE YESTERDAY AND PER HER REPORT HAS NOT HAD CT - WILL GET CBC, CHEM, AMYLASE/LIPASE, UA/CX, CT ABD/PELVIS - R/O APPENDICITIS, COLITIS, DIVERTICULITIS, PANCREATITIS, ELECTROLYTE ABNL, RENAL INSUFF Reassessment Reassessment ADMIT FOR APPENDICITIS - SPOKE WITH DR MAZARIEGOS, DR Miguel Angel TOLBERT, IV ZOSYN ORDERED Assessment & Plan Final Impression: (1) Appendicitis (2) Abdominal pain Depart Disposition: ADMITTED Last Vital Signs Date Time Temp Pulse Resp B/P (MAP) Pulse Ox O2 Delivery O2 Flow Rate FiO2 06/21/20 09:19 71 17 161/71 98 Room Air 06/21/20 08:51 98.5 Medications in the ED Pantoprazole Sodium 40 mg ONCE STAT IV Last administered on 06/21/20at 08:44; Admin Dose 40 MG; Start 06/21/20 at 08:30; Stop 06/21/20 at 08:31 Ondansetron HCl 4 mg ONCE STAT IV Last administered on 06/21/20at 08:44; Admin Dose 4 MG; Start 06/21/20 at 08:30; Stop 06/21/20 at 08:31 Sodium Chloride 1,000 ml @ 0 mls/hr Q0M STAT IV Last administered on 06/21/20at 08:44; Admin Dose 999 MLS/HR; Start 06/21/20 at 08:30; Stop 06/21/20 at 08:31 Dicyclomine HCl 20 mg ONCE ONCE IM Last administered on 06/21/20at 08:44; Admin Dose 20 MG; Start 06/21/20 at 08:30; Stop 06/21/20 at 08:31 Morphine Sulfate 4 mg NOW STAT IV ; Start 06/21/20 at 09:28; Stop 06/21/20 at 09:29; Status UNV MEI WALDRON MD Jun 21, 2020 09:40
[2020-06-21] MEDS ORDERED: SODIUM CHLORIDE 0.9% 50ML 50 ML ONE (10:03)
[2020-06-21] MEDS ORDERED: IOPAMIDOL 370 MG/ML 200 ML INFUS..BTL INJ ONE (10:03)
--- NOTE | 2020-06-21 11:04 | NUR ---
REC'D REPORT IN WALKINGM ROUNDS WITH CARLOS GONZALEZ
--- NOTE | 2020-06-21 11:20 | NUR ---
assisted pt up to br and back to bed. stated "my pain is starting to come back".
--- NOTE | 2020-06-21 11:41 | Diagnostic Imaging Report ---
EXAM: CT Abdomen and Pelvis WITH intravenous contrast INDICATION: Abdominal pain COMPARISON: None. TECHNIQUE: Abdomen and pelvis were scanned utilizing a multidetector helical scanner from the lung base to the pubic symphysis after administration of IV contrast. Coronal and sagittal reformations were obtained. Routine protocol was performed. Scan was performed during portal venous phase. IV CONTRAST: 100mL of Isovue 370 ORAL CONTRAST: Water RADIATION DOSE: Total DLP: 826 mGy*cm Dose modulation, iterative reconstruction, and/or weight based adjustment of the mA/kV was utilized to reduce the radiation dose to as low as reasonably achievable. FINDINGS: LOWER THORAX: Normal. HEPATOBILIARY: No focal liver lesion. No biliary ductal dilation. Status post cholecystectomy. SPLEEN: No splenomegaly. PANCREAS: No focal masses or ductal dilatation. ADRENALS: No adrenal nodules. KIDNEYS/URETERS: No hydronephrosis, stones, or solid mass lesions. PELVIC ORGANS/BLADDER: Unremarkable. PERITONEUM / RETROPERITONEUM: No free air or fluid. LYMPH NODES: No lymphadenopathy. VESSELS: Unremarkable. GI TRACT: The appendix is dilated to a diameter of 12 mm with mild adjacent right lower quadrant fat stranding. No other abnormal bowel thickening. No bowel obstruction. BONES AND SOFT TISSUES: No acute osseous injury. No suspicious lytic or blastic lesions. IMPRESSION: Early acute appendicitis. Signed by: Meche Adler MD on 06/21/2020 11:38 AM
--- NOTE | 2020-06-21 11:54 | NUR ---
DR. Neto MCNEILL PGD FOR THIS PT. PER DR. WALDRON.
[2020-06-21] MEDS ORDERED: PIPER-TAZ 3.375 GM / NS 50ML IV SCH (12:00)
[2020-06-21] MEDS ORDERED: SODIUM CHLORIDE 0.9% 1000ML 1,000 ML IV SCH (12:00)
[2020-06-21] MEDS ORDERED: MORPHINE SULFATE 2 MG/ML SYR 1ML IV PRN (12:00)
[2020-06-21] MEDS ORDERED: ONDANSETRON HCL INJ 2MG/ML 2ML 2 MG/ML VIAL IV PRN ×2 (12:00→16:45)
[2020-06-21] MEDS ORDERED: SODIUM CHLORIDE 0.9% 1000ML 1,000 ML ONE (12:08)
[2020-06-21] MEDS ORDERED: MORPHINE SULFATE INJ 4 MG/ML INJ 1ML IV PRN (12:15)
--- NOTE | 2020-06-21 12:25 | NUR ---
CONSENT SIGNED BY PT AND PLACED ON CLIPBOARD.
[2020-06-21] MEDS ORDERED: PIPER-TAZ 3.375 GM 50 ML IV SCH (12:30)
--- NOTE | 2020-06-21 12:49 | NUR ---
ON THE PHONE WITH HER FAMILY
--- OUTSIDE RECORDS SUMMARY | 2020-06-21 13:00 | XMS REPORT | Continuity of Care Document ---
Author Author [facility] t Organization [facility] Address [address] [place] [address] Phone Unavailable Care Team Providers Care Parts Counter Representative Name Role Phone NONSTAFF PCP Unavailable Yolanda WALDRON Attphys Unavailable Alverto WALKER, Mariela Attphys Unavailable Brie Johnston Attphys Unavailable Annabel NGUYEN, Evert Turner Attphys Jose NGUYEN, Chan Lu Attphys Dara NGUYEN, Darryl Llamas Attphys Payers Payer Name Policy Type Policy Number Effective Date Expiration Date S abilio MEDICAREMEDICARE PART A AND Bxxxxxxxxxxx8-[place]HOUS [place] 2019 00:00:00 [facility] COMMERCIAL MISCMISC MEDICARE SUPPLEMENTxxxxxxxxxx2019-Pr esentCommercial xxxxxxxxxx 2019 00:00:00 [facility] Medicare A & B [id number] [facility] Miscellaneous Ppo [id number] [facility] Problems Condition Name Condition Details Condition Category Status Onset Date Resolution Date Last Treatment Date Treating Clinician Comments Source Polyp of colon Polyp of Colon Problem Active 2020-05-22 00:00:00 [facility] Hiatal hernia Hiatal Hernia Problem Active 2020-05-22 00:00:00 [facility] 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 D iabetes mellitus type 2 with carpal tunnel syndrome Disease Active 2019-12-28 00:00:00 [facility] Seasonal allergy Seasonal Allergy Problem Active 2019-11-22 00:00:00 [facility] Osteopenia Osteopenia Problem Active 2019-08-28 00:00:00 [facility] Type 2 diabetes mellitus with multiple complications T ype 2 Diabetes Mellitus with Multiple Complications Problem Active 2019-03-30 00:00:00 [facility] Left side sciatica Left Side Sciatica Problem Active 2019-01-18 00:00:0 0 [facility] Proteinuric nephropathy due to diabetes mellitus Prote inuric Nephropathy Due to Diabetes Mellitus Problem Active 2017-10-18 00:00:00 [facility] Migraine Migraine Problem Active 2017-10-18 00:00:00 [facility] Benign essential hypertension Benign Essential Hypertension Problem Active 2017-10-18 00:00:00 [facility] Elevated liver enzymes level Elevated Liver Enzymes Level Problem Active 2017-10-18 00:00:00 [facility] Disorder of Achilles tendon Disorder of Achilles Tendon Problem Active 2017-06-01 00:00:00 [facility] Allergies, Adverse Reactions, Alerts Allergy Name Allergy Type Status Severity Reaction(s) Onset Date Inacti ve Date Treating Clinician Comments Source Gabapentin Propensity to adverse reactions to drug Active Hallucinations 2020-04-10 00:00:00 [facility] Terbinafine Propensity to adverse reactions to drug Active Hives 2020-04-10 00:00:00 [facility] Markhamis t Monosodium Glutamate Propensity to adverse reactions to drug Active Headache 2020-01-01 00:00:00 migraine [facility] Codeine Propensity to adverse reactions to drug Active GI Intolerance 2019-12-05 00:00:00 [facility] Prieto [facility] Codeine Allergy to substance Active [facility] MONOSODIUM GLUTAMATE Allergy to substance Active Severe Headache [facility] Gabapentin Allergy to substance Active [facility] Terbinafine Allergy to substance Active Hives [facility] Family History Family Member Diagnosis Comments Start Date Stop Date Source Natural brother Dementia [facility] Natural brother Diabetes [facility] Natural father Cancer [facility] Natural mother Cancer [facility] Natural mother Diabetes [facility] Natural mother Lymphoma [facility] Natural sister Breast cancer [facility] Bel[facility] Social History Social Habit Start Date Stop Date Quantity Comments Source Sex Assigned [facility] [facility] Exposure to SARS-CoV-2 (event) Not sure [facility] [...] Yes QD Take by mouth daily. [facility] Belchre aspirin (ECOTRIN) 81 MG enteric coated tablet 2020-04-10 09:49:2 7 Yes 81mg QD Take 81 mg by mouth nightly. [facility] Belcher aspirin 81 mg poevery other day with food aspirin 81 m g poevery other day with food No aspirin 81 mg poevery other day with food [facility] atenolol 50 mg tablet Take 1 tablet by mouth once mary ellen y atenolol 50 mg tablet Take 1 tablet by mouth once daily No atenolol 50 mg tablet Take 1 tablet by mouth once daily [facility] B Complex 1 po qd B Complex 1 po qd No B Co mplex 1 po qd [facility] diphenoxylate-atropine 2.5 mg-0.025 mg t ablet Take 1 tablet 3 times a day by oral route for 5 days. diphenoxylate-atropine 2.5 mg-0.025 mg t ablet Take 1 tablet 3 times a day by oral route for 5 days. No diphenoxylate- atropine 2.5 mg-0.025 mg tablet Take 1 tablet 3 times a day by oral route for 5 days. [facility] fluticasone propionate 50 mcg/actuation nasal spray,suspension USE 1 SPRAY(S) IN EACH NOSTRIL TWICE DAILY FOR 90 DAYS fluticasone propionate 50 mcg/actuation nasal spray,suspension USE 1 SPRAY(S) IN EACH NOSTRIL TWICE DAILY FOR 90 DAYS No fluticasone pr opionate 50 mcg/actuation nasal spray,suspension USE 1 SPRAY(S) IN EACH NOSTRIL TWICE DAILY FOR 90 DAYS [facility] Ginkoba 1 po qd Ginkoba 1 po qd No Ginkoba 1 po qd [facility] hydrochlorothiazide 12.5 mg capsule Take 1 capsule ashvin ry day by oral route. hydrochlorothiazide 12.5 mg capsule Take 1 capsule every day by oral route. No hydrochlorothia zide 12.5 mg capsule Take 1 capsule every day by oral route. [facility] Januvia 100 mg tablet Take 1 tablet every day by oral route. Januvia 100 mg tablet Take 1 tablet every day by oral route. No Januvia 100 mg tablet Take 1 tablet every day by oral route. [facility] lisinopril 10 mg tablet Take 1 tablet every day by ora l route. lisinopril 10 mg tablet Take 1 tablet every day by oral route. No lisinopril 10 mg tablet Take 1 tablet every day by oral route. [facility] Lumigan 0.01 % eye drops daily Lumigan 0.01 % eye drops daily No Lumigan 0.01 % eye drops daily [facility] montelukast 10 mg tablet TAKE 1 TABLET BY MOUTH ONCE D AILY IN THE EVENING montelukast 10 mg tablet TAKE 1 TABLET BY MOUTH ONCE DAILY IN THE EVENING No montelukast 10 mg tablet TAKE 1 TABLET BY MOUTH ONCE DAILY IN THE EVENING [facility] Au Sable Forks 3 1000 qd [place] S[place] Forks 3 1000 qd No [place] Forks 3 1000 qd [facility] ondansetron 4 mg disintegrating tablet ondansetron 4 mg disinteg rating tablet No ondansetron 4 mg disintegrating tablet [facility] One-A-Day Womens Formula 1 po qd One-A-Day Womens Formula 1 po qd No One-A-Day Womens Formula 1 po qd [facility] pantoprazole 40 mg tablet,delayed releas e Take 1 tablet every day by oral route for 90 days. pantoprazole 40 mg tablet,delayed releas e Take 1 tablet every day by oral route for 90 days. No 1 Q1D pantoprazole 40 mg tablet,delayed release Take 1 tablet every day by oral route for 90 days. [facility] pioglitazone 45 mg tablet Take 1 tablet every day by o ral route. pioglitazone 45 mg tablet Take 1 tablet every day by oral route. No pioglitazone 45 mg tablet Take 1 tablet every day by oral route. [facility] Restasis 0.05 % eye drops in a dropperette twice daily Restasis 0.05 % eye drops in a dropperette twice daily No Restasis 0.05 % eye drops in a dropperette twice daily [facility] celia sumatriptan 100 mg tablet TAKE 1 [...] MAX OF 4 TABLETS IN ONE MONTH [facility] Suprep Bowel Prep Kit 17.5 gram-3.13 gram-1.6 gram ora l solution Suprep Bowel Prep Kit 17.5 gram-3.13 gram-1.6 gram oral solution No Suprep Bowel Prep Kit 17.5 gram-3.13 gram-1.6 gram oral solution [facility] terbinafine HCl 250 mg tablet terbinafine HCl 250 mg tablet No terbinafine HCl 250 mg tablet [facility] turmeric 1 po qd turmeric 1 po qd No turmer ic 1 po qd [facility] Valium 10 mg tablet Take 1 hour prior to the test Hector um 10 mg tablet Take 1 hour prior to the test No V alium 10 mg tablet Take 1 hour prior to the test [facility] Immunizations Ordered Immunization Name Filled Immunization Name Date Status Comments Source pneumococcal conjugate PCV 13 pneumococcal conjugate PCV 13 2016 18:33:11 Completed [facility] Vital Signs Vital Name Observation Time Observation Value Comments Source Height 2020-06-04 00:00:00 63 [in_i] [facility] Height 2020-04-04 00:00:00 63 [in_i] [facility] Height 2020-02-03 00:00:00 63 [in_i] [facility] BP Diastolic 2019-11-22 00:00:00 84 mm[Hg] [facility] Height 2019-11-22 00:00:00 63 [in_i] [facility] BMI (Body Mass Index) 2019-11-22 00:00:00 45.9 kg/m2 [facility] BP Systolic 2019-11-22 00:00:00 134 mm[Hg] [facility] Body Weight 2019-11-22 00:00:00 259 [lb_av] [facility] BP Diastolic 2019-07-19 00:00:00 80 mm[Hg] [facility] Height 2019-07-19 00:00:00 63 [in_i] [facility] BMI (Body Mass Index) 2019-07-19 00:00:00 45.2 kg/m2 [facility] BP Systolic 2019-07-19 00:00:00 130 mm[Hg] [facility] Body Weight 2019-07-19 00:00:00 255 [lb_av] [facility] BP Diastolic 2019-06-30 00:00:00 74 mm[Hg] [facility] Height 2019-06-30 00:00:00 63 [in_i] [facility] BMI (Body Mass Index) 2019-06-30 00:00:00 [...] Body height 2020-05-28 15:45:00 160 cm [facility] Body weight 2020-05-28 15:45:00 113.399 kg [facility] BMI 2020-05-28 15:45:00 44.29 kg/m2 [facility] Systolic blood pressure 2020-01-01 13:43:00 118 mm[Hg] [facility] Diastolic blood pressure 2020-01-01 13:43:00 57 mm[Hg] [facility] Heart rate 2020-01-01 13:43:00 56 /min [facility] Body temperature 2020-01-01 13:43:00 36.56 [facility] [place] [facility] Respiratory rate 2020-01-01 13:43:00 20 /min [facility] Oxygen saturation in Arterial blood by Pulse oximetry 12-31 13:43:00 97 /min [facility] BP Diastolic 2018-02-02 00:00:00 84 mm[Hg] [facility] Height 2018-02-02 00:00:00 63 [in_i] [facility] BMI (Body Mass Index) 2018-02-02 00:00:00 44.1 kg/m2 [facility] BP Systolic 2018-02-02 00:00:00 132 [...] Family Practice Height 2017-10-18 00:00:00 63 [in_i] [facility] BMI (Body Mass Index) 2017-10-18 00:00:00 40.2 kg/m2 [facility] BP Systolic 2017-10-18 00:00:00 164 mm[Hg] [facility] Body Weight 2017-10-18 00:00:00 227 [lb_av] [facility] Procedures Procedure Date / Time Performed Performing Clinician Sourc e XR CERVICAL SPINE COMPLETE 2020-05-28 16:03:31 [facility] XR SHOULDER 2+ VW RIGHT 2020-05-28 16:03:15 Johnny [facility] Egd 2020-05-22 00:00:00 [place] XR LUMBAR SPINE 2 OR 3 VW 2020-04-10 10:42:53 Aly Garcia [facility] XR HIP 2-3 VIEWS LEFT 2020-04-10 09:42:57 Aly Garcia Anabela ston [facility] XR CHEST 2 VW 2020-01-01 15:32:41 Held, Muriel [facility] ECG PRE/POST OP 2020-01-01 14:40:14 Held, Muriel [facility] CBC HEMOGRAM 2020-01-01 14:11:00 Held, Muriel [facility] BASIC METABOLIC PANEL 2020-01-01 14:11:00 Held, Muriel heller [facility] PARTIAL THROMBOPLASTIN TIME (PTT) 2020-01-01 14:11:00 Held, Lola [facility] PROTHROMBIN TIME WITH INR 2020-01-01 14:11:00 Held, Muriel manuel [facility] TYPE AND SCREEN 2020-01-01 14:11:00 Held, Muriel [facility] HEMOGLOBIN A1C 2020-01-01 14:11:00 Keara Blount [facility] ESTIMATED GFR 2020-01-01 14:11:00 Held, Muriel [facility] US PELVIC TRANSABDOMINAL 2019-12-08 09:44:16 Held, Muriel holliston [facility] US PELVIC TRANSVAGINAL 2019-12-08 09:44:16 Held, Muriel de guzman [facility] SURGICAL PATHOLOGY REQUEST 2019-12-05 14:16:00 Held, Muriel Belcher PAP IG (IMAGE GUIDED) 2019-12-05 14:14:00 Held, Muriel Markhamist OCCULT BLOOD, STOOL 2019-12-05 09:51:00 Held, Muriel Belcher DC BIOPSY OF UTERUS LINING 2019-12-05 08:30:00 Held, Muriel Belcher US, upper arm 2019-11-22 00:00:00 [place] US, chest wall 2019-11-22 00:00:[address] [place] MAMMO, screening, digital, bilateral 2019-06-30 00:00:00 [facility] bone density 2019-06-30 00:00:[address] [place] electrocardiogram 2019-04-21 00:00:00 [facility] MAMMO, screening, bilateral 2019-01-17 00:00:00 [facility] electrocardiogram 2018-01-19 00:00:00 [facility] MAMMO, screening, bilateral 2017-06-17 00:00:00 [facility] X-RAY OF ANKLE 3+ VIEW 2017-05-03 00:00:00 Puma llanes [facility][1] Eye Surgery 2009-11-01 00:00:[address] [place] Orthopedic Surgery 1988-11-01 00:00:00 [facility] Cervical Laminoplsty 2/> Seg Elma sinclair [facility][1] Hemorrhoidectomy [facility] Appendectomy [facility] ractice Cholecystectomy [facility] ractice Appendectomy [facility] ractice Cholecystectomy (Gall Bladder Removal) [facility] Colonoscopy & Polypectomy [facility] Plan of Care Planned Activity Planned Date Details Comments Source Future Scheduled Test 2020-08-01 00:00:00 INFLUENZA VACCINE [code = INFLUENZA VACCINE] [facility] Future Scheduled Test 2019 00:00:00 65+ PNEUMOCOCCAL V ACCINE (2 of 2 - PPSV23) [code = 65+ PNEUMOCOCCAL VACCINE (2 of 2 - PPSV23)] [facility] Future Scheduled Test 2017-04-01 00:00:00 BREAST CANCER SCRE ENING [code = BREAST CANCER SCREENING] [facility] Future Scheduled Test 2004 00:00:00 COLONOSCOPY SCREEN ING [code = COLONOSCOPY SCREENING] [facility] Future Scheduled Test 2004 00:00:00 SHINGLES VACCINES (#1) [code = SHINGLES VACCINES (#1)] [facility] Scheduled Test 1964 00:00:00 DIABETIC FOOT EXAM [code = DIABETIC FOOT EXAM] [facility] Scheduled Test 1964 00:00:00 URINE MICROALBUMIN [code = URINE MICROALBUMIN] [facility] Scheduled Test 1954 00:00:00 DIABETIC RETINAL E YE EXAM [code = DIABETIC RETINAL EYE EXAM] [facility] Appointment 2020-08-08 07:30:00 Muriel Diamond MD, [address], [place] [id number] [facility] Appointment 2020-08-08 07:30:00 Muriel Diamond MD, [address], [place] [id number] [facility] Encounters Start Date/Time End Date/Time Encounter Type Admission Type [facility] Care Department Encounter ID Source 2020-06-04 00:00:00 2020-06-04 00:00:00 Masoud white MD: [address], [address], [place] [address], Ph. [facility] - _[facility] [id number] [facility] 2020-05-28 00:00:00 2020-05-28 00:00:00 Outpatient [facility] [id number] [facility] 2020-05-28 00:00:00 2020-05-28 00:00:00 Outpatient [facility] [id number] [facility] 2020-05-28 00:00:00 2020-05-28 00:00:00 Outpatient [facility] [id number] [facility] 2020-04-10 00:00:00 2020-04-10 00:00:00 Outpatient ALY GARCIA [facility] [id number] [facility] 2020-04-10 00:00:00 2020-04-10 00:00:00 Outpatient ALY GARCIA [facility] [id number] [facility] 2020-04-10 00:00:00 2020-04-10 00:00:00 Outpatient [facility] [id number] [facility] 2020-04-04 00:00:00 2020-04-04 00:00:00 Masoud white MD: [address], [place] [address], Ph. [facility] - [facility] - VM_HOU_Hobby [id number] [facility] 2020-02-03 00:00:00 2020-02-03 00:00:00 Shravan Fields D: [address], [address], [place] [address], Ph. [facility] - [facility] - VM_HOU_[facility] [id number] [facility] Pract ice 2020-01-03 10:26:00 2020-01-30 23:59:00 Discharged Recurring [facility] [id number] [facility] 2020-01-01 00:00:00 2020-01-01 00:00:00 Outpatient HELD, [facility] [id number] [facility] 2020-01-01 00:00:00 2020-01-01 00:00:00 Outpatient HELD, [facility] [id number] [facility] 2020-01-01 00:00:00 2020-01-01 00:00:00 Outpatient HELD, [facility] [id number] [facility] 2019-12-26 11:04:00 2019-12-30 23:59:00 Discharged Recurring [facility] [id number] [facility] 2019-12-08 00:00:00 2019-12-08 00:00:00 Outpatient HELD, [facility] [id number] [facility] 2019-11-22 00:00:00 2019-11-22 00:00:00 Masoud white MD: [address], [place] [address], Ph. [facility] - [facility] [id number] [facility] 2019-07-19 00:00:00 2019-07-19 00:00:00 Masoud white MD: [address], [place] [address], Ph. [facility] [place] - [facility] - [facility] [id number] [facility] 2019-06-30 00:00:00 2019-06-30 00:00:00 Masoud white MD: [address], [place] [address], Ph. [facility] - [facility] - [facility] [id number] [facility] 2019-04-21 00:00:00 2019-04-21 00:00:00 Masoud white MD: [address], [place] [address], Ph. [facility] - [facility] - [facility] [id number] [facility] 2019-03-30 00:00:00 2019-03-30 00:00:00 Masoud white MD: [address], [place] [address], Ph. [facility] - [facility] - [facility] [id number] [facility] 2019-02-08 00:00:00 2019-02-08 00:00:00 Masoud white MD: [address], [place] [address], Ph. [facility] - [facility] - [facility] [id number] [facility] 2019-02-01 00:00:00 2019-02-01 00:00:00 Masoud white MD: [address], [place] [address], Ph. [facility] [place] - [facility] - [facility] [id number] [facility] 2019-01-17 00:00:00 2019-01-17 00:00:00 Masoud white MD: [address], [place] [address], Ph. [facility] [id number] [facility] 2018-02-02 00:00:00 2018-02-02 00:00:00 Masoud white MD: [address], [place] [address], Ph. [facility] [id number] [facility] 2018-01-19 00:00:00 2018-01-19 00:00:00 Masoud white MD: [address], [place] [address], Ph. [facility] [id number] [facility] 2017-10-18 00:00:00 2017-10-18 00:00:00 Masoud white MD: [address], [place] [address], Ph. [facility] [id number] [facility] Results Test Description Test Time Test Comments Results Result Comments Source CT ABDOMEN/PELVIS W 2020-06-21 11:33:00 [place] [address] Patient Name: CASSANDRA REEVES MR #: [id number] : 1955 Age/Sex: 65/F Req #: [id number] Adm Physician: Ordered by: MEI WALDRON MD Report #: [id number] Location: Room/Bed: Procedure: [id number] CT/CT ABDOMEN/PELVIS W Exam Date: 06/21/20 Exam Time: 1030 REPORT STATUS: Signed EXAM: CT Abdomen and Pelvis WITH intravenous contrast INDICATION: Abdominal pain COMPARISON: None. TECHNIQUE: Abdomen and pelvis were scanned utilizing a multidetector helical scanner from the lung base to the pubic symphysis after administration of IV contrast. Coronal and sagittal reformations were obtained. Routine protocol was performed. Scan was performed during portal venous phase. IV CONTRAST: 100mL of Isovue 370 ORAL CONTRAST: Water RADIATION DOSE: Total DLP: 826 mGy*cm Dose modulation, iterative reconstruction, and/or weight based adjustment of the mA/kV was utilized to reduce the radiation dose to as low as reasonably achievable. FINDINGS: LOWER THORAX: Normal. HEPATOBILIARY: No focal liver lesion. No biliary ductal dilation. Status post cholecystectomy. SPLEEN: No splenomegaly. PANCREAS: No focal masses or ductal dilatation. ADRENALS: No adrenal nodules. KIDNEYS/URETERS: No hydronephrosis, stones, or solid mass lesions. PELVIC ORGANS/BLADDER: Unremarkable. PERITONEUM / RETROPERITONEUM: No free air or fluid. LYMPH NODES: No lymphadenopathy. VESSELS: Unremarkable. GI TRACT: The appendix is dilated to a diameter of 12 mm with mild adjacent right lower quadrant fat stranding. No other abnormal bowel thickening. No bowel obstruction. BONES AND SOFT TISSUES: No acute osseous injury. No suspicious lytic or blastic lesions. IMPRESSION: Early acute appendicitis. Signed by: Lloyd Lawson MD on 06/21/2020 11:38 AM Dictated By: LLOYD LAWSON MD 1138 Transcribed By: BRUNA on 06/21/20 1138 COPY TO: MEI WALDRON MD CHEST SINGLE (PORTABLE) 2020-06-21 09:09:00 [place] [address] Patient Name: CASSANDRA REEVES MR #: [id number] : 1955 Age/Sex: 65/F Req #: [id number] Adm Physician: Ordered by: MEI WALDRON MD Report #: [id number] Location: ER Room/Bed: Procedure: [id number] DX/CHEST SINGLE (PORTABLE) Exam Date: Exam Time: REPORT STATUS: Signed EXAMINATION: CHEST SINGLE (PORTABLE) INDICATION: Abdominal pain COMPARISON: None FINDINGS: LINES/TUBES:None LUNGS:The lungs are well-inflated. No focal consolidation or pulmonary edema. PLEURA:No pleural effusion or pneumothorax. ME DIASTINUM:The cardiomediastinal silhouette is magnified by portable technique. BONES/SOFT TISSUES:No acute osseous injury. ABDOMEN:No free air under the diaphragm. IMPRESSION: No focal pneumonia or pulmonary edema. Signed by: Lloyd Lawson MD on 06/21/2020 9:10 AM Dictated By: LLOYD LAWSON MD 9 Transcribed By: NORA BECKFORD on 06/21/20909 COPY TO: MEI WALDRON MD ECG Pre/Post Op 2020-01-02 08:13:06 Test Item Ventricular rate (test code = 253) 54 Atrial rate (test code = 255) 54 DC interval (test code = 266) 128 QRSD [...] ECG-No previous ECGs available- [facility] and [id number] 17:52:00* Test Item Value Reference Range Interpretation Comments ABO grouping (test code = 883-9) O Rh type (test code = 04043-9) POS Antibody screen (gel) (test code = 890-4) NEG [facility] [id number] 16:08:36* Test Item Value Reference Range Interpretation Comments Sodium (test code = 2951-2) 140 135- 148 mEq/L Potassium (test code = 2823-3) 3.8 3.5- 5.0 mEq/L Chloride (test code = 2075-0) 99 98- 112 mEq/L CO2 (test code = 2028-9) 27 24- 31 mEq/L Anion gap (test code = 95653-2) 14@ANIO 7- 15 mEq/L BUN (test code = 3094-0) 17 mg/dL 8-23 Creatinine (test code = 2160-0) 0.82 mg/dL 0.5-0.9 Glucose (test code = 2345-7) 127 mg/dL 65-99 H Calcium (test code = 29766-9) 9.4 mg/dL 8.8-10.2 Lab Interpretation (test code = 20821-5) Abnormal [facility] [id number] 16:08:35* Test Item Value Reference Range Interpretation Comments Estimated GFR (test code = 5488) 75 mL/min/1.73 m2 Catergory Units InterpretationG1 >=90 Normal or highG2 60-89 Mildly [id number] 45-59 Mildly to moderately [id number] 30-44 Moderately to severely decreasedG4 15-29 Severely decreasedG5 <15 Kidney failureThe eGFR was calculated using the Chronic Kidney Disease Epidemiology Collaboration (CKD-EPI) equation. Interpretation is based on recommendations of the National Kidney Foundation-Kidney Disease Outcomes Quality Initiative (NKF-KDOQI) published in 2014. [facility] MethodistHemoglobin [id number] 16:03:20* Test Item Value Reference Range Interpretation Comments Hemoglobin A1C (test code = 19383-7) 5.7 % 4-5.6 H HbA1c cutoffs for diagnosing diabetes:4.0% - 5.6% = normal5.7% - 6.4% = increased risk for diabetes (prediabetes)9>=6.5% = lododyaa6Fgjxc for glycemic control (ADA 2016)< 7.0% Target for non adults with diabetes. More or less stringent targets may be appropriate for individual patients. <7.5% Target for Children and adolescents with type 1 diabetes. Lab Interpretation (test code = 89505-3) Abnormal [facility] MethodistPartial thromboplastin time, auxwzvmed3885-32-31 16:02:08* Test Item Value Reference Range Interpretation Comments PTT (test code = 14894-7) 37.5 23.0- 36.0 sec H PTT therapeutic range for unfractionated heparin is61.0-112.0 seconds which corresponds to Anti-Xa0.3-0.7 U/ml. Lab Interpretation (test code = 03356-3) Abnormal [facility] MethodistProthrombin time with [id number] 16:01:50* Test Item Value Reference Range Interpretation Comments Prothrombin time (test code = 5902-2) 13.9 11.5- 14.5 sec INR (test code = 28618-6) 1.1 Th e International Normalized Ratio (INR) is a therapeutic monitoring tool for patients who are stable on oral anticoagulant therapy. An INR of 2.0-3.0 is suggested for deep vein thrombosis/pulmonary embolism. [facility] CampusistCBC phdvrrmy8416-10-56 15:38:48* Test Item Value Reference Range Interpretation Comments WBC (test code = 61128-1) 6.51 4.50- 11.00 k/uL RBC (test code = 83910-4) 4.41 m/uL 4.2-5.5 HGB (test code = 718-7) 13.4 g/dL 12-16 HCT (test code = 4544-3) 42.2 % 37-47 MCV (test code = 787-2) 95.7 fL 82-100 MCH (test code = 785-6) 30.4 pg 27-34 MCHC (test code = 786-4) 31.8 g/dL 31-37 RDW - SD (test code = 23200-4) 48.1 fL 37-55 MPV (test code = 70623-5) 11.4 fL 8.8-13.2 Platelet count (test code = 43588-1) 226 150- 400 k/uL Nucleated RBC (test code = 25130-5) 0.00 /100 WBC [facility] MethodistXR Chest 2 Py4674-10-40 15:36:19 Interface, Radiology Results - 01/01/2020 3:39 PM CSTEXAMINATION: XR CHEST 2 VWCLINICAL HISTORY: 64 years Female Z01.818 Encounter for other preprocedural examination, PREOPCOMPARISON: October 29IMPRESSION:Cardiomediastinal silhouette is unchanged. Atelectasis in the lung bases Age related changes in the osseous structures. Old healed right posterior rib fractures. [facility]-[id number] MethodistPap IG (Image Guided)2019-12-08 17:08:00* Test Item Value Reference Range Interpretation Comments Diagnosis (test code = 21809-4) Comment NEGATIVE FOR INTRAEPITHELIAL LESION OR MALIGNANCY.THIS SPECIMEN WAS RESCREENED PART OF OUR LICENSED PRACTICAL NURSE CLINIC NURSE PROGRAM. Specimen adequacy (test code = 47289-5) Comment Satisfactory for evaluation. Endocervical component may not bedistinguished in cases of atrophy. Performed by: (test code = 75660-8) Comment Nela Bangura, Bag Filler ([facility]) QC reviewed by: (test code = 2565736) Comment Ana Mccarty, Bag Filler ([facility]) Comment (test code = 33449-8) . Note: (test code = 6929042) Comment The Pap smear is a screening test designed to aid in the detection ofpremalignant and malignant conditions of the uterine cervix. It is not adiagnostic procedure and should not be used as the sole means of detectingcervical cancer. Both false-positive and false-negative reports do occur. Test methodology (test code = 77254-1) Comment This liquid based ThinPrep(R) pap test was screened with theuse of an image guided system. DEEPIKA (test code = DEEPIKA) Performed at: - [address] [id number] Director: Ethan Rico MD, Phone: [phone] at: - [facility] [address] [place] [id number] Director: Ethan Rico MD, Phone: [phone] Comment: Source.............Cervix;EndocervixSpecimen Comment: No. of containers..01 ThinPrep Vial [facility] MethodistUS Pelvic Mssdaflvrpbh6875-13-37 12:36:59Hm Interface, Radiology Results 12/08/2019 12:40 PM CSTEXAMINATION: US PELVIC TRANSABDOMINAL, [...] g of postmenopausal bleeding, endometrial biopsy is advised.[id number] ed and approved by cardiac cath lab radiology technologist/fellow: Nain Abdi, Misa laureano MD, personally reviewed the images and resident's/fellow's findings and agre e with the final report.[place] MethodistUS Pelvic Bifhjbebtakiku0458-63-90 12:36:59Hm Interface, Radiology Results - 12/08/2019 12:40 [...] setting of postmenopausal bleeding, endometrial biopsy is advised.[id number]-[id number] and approved by cardiac cath lab radiology technologist/fellow: Nain Abdi, Misa Corea MD, personally reviewed the images and resident's/fellow's findings and agree with the final report. [facility] MethodistOccult blood, mdncv3719-23-74 16:09:00* Test Item Value Reference Range Interpretation Comments Occult blood, stool (test code = 93449-5) Negative Negative DEEPIKA (test code = DEEPIKA) Performed at: [facility] [address] [id number] Director: Ethan Rico MD, Phone: [phone] [facility] MethodistSurgical pathology cafzzkx8969-64-66 14:10:00* Test Item Value Reference Range Interpretation Comments Material Submitted (test code = 38769-2) Comment Material submitted: .endometrium - EMB Diagnosis (test code = 93494-4) Comment Diagnosis: SCANT BENIGN ENDOCERVICAL GLANDS AND SQUAMOUS EPITHELIUM.- RARE STRIPS OF ATROPHIC ENDOMETRIAL EPITHELIUM, INSUFFICIENTFOR EVALUATION.O 12/06/2019 1154 Local Electronically signed by: (test code = 46346-8) Comment Electronically signed: .Tanvi Pérez MD, Pathologist Gross description: (test code = 11015-4) Comment Gross description: .1 Container, formalin-filled, labeled with patient identification.EMB:Received in formalin is a 0.2 x 0.1 x 0.1 cm aggregate of mucus andsoft tissue. The specimen is filtered and entirely submitted in P1lioyjjpu. Minute specimen, may not survive processing./CQS 12/06/2019 1154 Local CPT: (test code = 83374-3) Comment C PT .[id number] DEEPIKA (test code = DEEPIKA) Performed at: [facility] [address] [id number] Director: Ethan Rico MD, Phone: [phone] [facility] MethodistEndometrial fniuag6551-37-78 08:30:00Muriel Diamond MD 12/05/2019 2:18 PMEndometrial biopsyDate/Time: [...] yes Chidi MethodistUrinalysis macro (dipstick) panel - Teybz3690-90-08 12:54:00* Test Item Value Reference Range Interpretation Comments Color Color (test code = Color Color) yellow Color Appearance (test code = Color Appearance) clear Color Glucose (test code = Color Glucose) negative Color Bilirubin (test code = Color Bilirubin) negative Color Ketones (test code = Color Ketones) negative Color Specific Severy (test code = Color Specific Severy) 1.025 Color Blood (test code = Color Blood) trace Color PH (test code = Color PH) 6.0 Color Protein (test code = Color Protein) negative Color Urobilinogen (test code = Color Urobilinogen) 0.2 Color Nitrites (test code = Color Nitrites) negative Color Leukocytes (test code = Color Leukocytes) trace [facility] B[facility] DAVI CAD OSDZSGC3039-66-85 10:20:44 - SCR MAMM BILATERAL DAVI CAD DIGITALBILATERAL DIGITAL SCREENING MAMMOGRAM 3D/2D WITH CAD: 08/15/2019CLINICAL: Asymptomatic. Digital breast tomosynthesis was performed in addition to routine CC and MLO views. Current mammographic images were evaluated by either a [employer] M-Vu or a [employer] ImageChecker CAD (computer a ided detection system). [...] - 08/28/2019 14:23:52Imaging Technologist: Dilia OSEI, [facility]-FWletter sent: BIRADS 1-2 Normal Mammogram BI-RADS: 2 Benignvisual ddgxbs2856-77-99 12:12:00* Test Item Value Reference Range Interpretation Comments R Eye Uncorrected (test code = R Eye Uncorrected) 20/40 L Eye Uncorrected (test code = L Eye Uncorrected) 20/40 [facility] HospitalEKG ddfhm1441-04-65 15:12:00* Test Item Value Reference Range Interpretation Comments Rate & Rhythm (test code = Rate & Rhythm) 61/ min , rrr QRS (test code = QRS) DC Interval (test code = DC Interval) QRS Duration (test code = QRS Duration) QT Interval (test code = QT Interval) [facility] HospitalUrinalysis macro (dipstick) panel - Otoas2607-57-87 17:31:00Color ColorColor AppearanceColor GlucoseVillage [facility][1]Glucose [Mass/volume] in Capillary kkdqj7542-27-64 16:44:00* Test Item Value Reference Range Interpretation Comments Blood Glucose: mg/dl (test code = Blood Glucose: mg/dl) 82 [facility] HospitalGlucose [Mass/volume] in Capillary jmuiy7253-61-99 16:44:00* Test Item Value Reference Range Interpretation Comments Blood Glucose: mg/dl (test code = Blood Glucose: mg/dl) 82 [facility] HospitalGlucose [Mass/volume] in Capillary rmvml6722-05-00 15:16:00* Test Item Value Reference Range Interpretation Comments Blood Glucose: mg/dl (test code = Blood Glucose: mg/dl) 367 [facility] Hospitalrapid strep group A, yujyqa4913-85-99 15:15:00* Test Item Value Reference Range Interpretation Comments Strep (test code = Strep) negative [facility]2019-03-24 22:59:00* Test Item Value Reference Range Interpretation Comments SPIROMETRY: (test code = SPIROMETRY:) PRE FEV1: (test code = FEV1:) FVC: (test code = FVC:) RESTRICTION: (test code = RESTRICTION:) MILD (FVC 65-80% predicted) OBSTRUCTION: (test code = OBSTRUCTION:) NOTES: (test code = NOTES:) [facility]2019-03-24 22:59:00* Test Item Value Reference Range Interpretation Comments SPIROMETRY: (test code = SPIROMETRY:) PRE FEV1: (test code = FEV1:) FVC: (test code = FVC:) RESTRICTION: (test code = RESTRICTION:) MILD (FVC 65-80% predicted) OBSTRUCTION: (test code = OBSTRUCTION:) NOTES: (test code = NOTES:) [facility] HospitalMicroalbumin/Creatinine [Mass Ratio] in Tzfct1671-50-36 15:09:00* Test Item Value Reference Range Interpretation Comments creatinine, random urine (test code = creatinine, random uri ne) 100 mg/dL 20-275 Protein [Mass/volume] in Urine (test code = 2888-6) 0.7 mg/dL se e note: microalbumin/creatinine ratio, random ur ine (test code = microalbumin/creatinine ratio, random urine) 7 mcg/mg creat <30 [facility] HospitalMicroalbumin/Creatinine [Mass Ratio] in Ogcxt0200-91-45 15:09:00* Test Item Value Reference Range Interpretation Comments creatinine, random urine (test code = creatinine, random uri ne) 100 mg/dL 20-275 Protein [Mass/volume] in Urine (test code = 2888-6) 0.7 mg/dL se e note: microalbumin/creatinine ratio, random ur ine (test code = microalbumin/creatinine ratio, random urine) 7 mcg/mg creat <30 [facility] HospitalHemoglobin A1c/Hemoglobin.total in Rjctp0852-95-56 08:16:00* Test Item Value Reference Range Interpretation Comments Hemoglobin A1c/Hemoglobin.total in Blood (test code = 4548-4) 9.3 % of total HGB <5.7 H EAG (mg/dL) (test code = EAG (mg/dL)) 220 (calc) EAG (mmol/L) (test code = EAG (mmol/L)) 12.2 (calc) [facility] HospitalLipid 1995 panel - Serum or Cojpnw3167-26-11 08:16:00* Test Item Value Reference Range Interpretation [...] HDL cholesterol) 103 mg/dL (ca lc) <130 [facility] HospitalComprehensive metabolic 1999 panel - Serum or Plasma 2019-01-18 08:16:00* Test Item Value Reference Range Interpretation Comments glucose (test code = glucose) 232 mg/dL 65-99 H urea nitrogen (BUN) (test code = urea nitrogen (BUN)) 17 mg/dL 7-25 creatinine (test code = creatinine) 0.69 mg/dL 0.50-0.99 eGFR non-afr. swazi (test code = eGFR non-afr. swazi) 92 mL/min/1.73m2 > or = 60 eGFR [...] code = ALT) 31 U/L 6-29 H [facility] Auto Differential panel - [id number] 08:16:00 * Test Item Value Reference Range [...] code = absolute neutrophils) 5242 poli ls/uL 2881-6530 absolute lymphocytes (test code = absolute lymphocytes) [...] basophils (test code = basophils) 1.0 % [facility] HospitalHemoglobin A1c/Hemoglobin.total in Jrlbq4323-15-46 08:16:00* Test Item Value Reference Range Interpretation Comments Hemoglobin A1c/Hemoglobin.total in Blood (test code = 4548-4) 9.3 % of total HGB <5.7 H EAG (mg/dL) (test code = EAG (mg/dL)) 220 (calc) EAG (mmol/L) (test code = EAG (mmol/L)) 12.2 (calc) [facility] HospitalLipid 1995 panel - Serum or Ppegjj3126-85-92 08:16:00* Test Item Value Reference Range Interpretation [...] HDL cholesterol) 103 mg/dL (ca lc) <130 [facility] HospitalComprehensive metabolic 1999 panel - Serum or Plasma 2019-01-18 08:16:00* Test Item Value Reference Range Interpretation Comments glucose (test code = glucose) 232 mg/dL 65-99 H urea nitrogen (BUN) (test code = urea nitrogen (BUN)) 17 mg/dL 7-25 creatinine (test code = creatinine) 0.69 mg/dL 0.50-0.99 eGFR non-afr. swazi (test code = eGFR non-afr. swazi) 92 mL/min/1.73m2 > or = 60 eGFR [...] code = ALT) 31 U/L 6-29 H [facility] W Auto Differential panel - Qzgmv4481-45-52 08:16:00 * Test Item Value Reference Range [...] code = absolute neutrophils) 5242 poli ls/uL 6737-3364 absolute lymphocytes (test code = absolute lymphocytes) [...] basophils (test code = basophils) 1.0 % [facility] HospitalGlucose [Mass/volume] in Capillary xywzz5418-84-15 12:36:09* Test Item Value Reference Range Interpretation Comments Blood Glucose: mg/dl (test code = Blood Glucose: mg/dl) 272 [facility] HospitalGlucose [Mass/volume] in Capillary dsuop3643-06-56 12:36:09* Test Item Value Reference Range Interpretation Comments Blood Glucose: mg/dl (test code = Blood Glucose: mg/dl) 272 [facility] HospitalGlucose [Mass/volume] in Capillary zcfbg2012-51-61 12:36:09* Test Item Value Reference Range Interpretation Comments Blood Glucose: mg/dl (test code = Blood Glucose: mg/dl) 272 [facility] HospitalGlucose [Mass/volume] in Capillary rrmad5895-91-63 12:36:09* Test Item Value Reference Range Interpretation Comments Blood Glucose: mg/dl (test code = Blood Glucose: mg/dl) 272 [facility] HospitalNeuronal nuclear IgG Ab [Units/volume] in Serum by Tskssllvvylkrxoxxx1634-05-23 17:54:00* Test Item Value Reference Range Interpretation Comments SAMANTHA screen, ifa (test code = SAMANTHA screen, ifa) negative negative [facility] HospitalFerritin [Mass/volume] in Serum or Oovfoh6452-04-08 16:42:00* Test Item Value Reference Range Interpretation Comments ferritin (test code = ferritin) 213 NG/mL 20-288 [facility] HospitalAcute hepatitis 2000 panel - Serum Uhqxrvwlujz2117-22-64 11:54:00* Test Item Value Reference Range Interpretation [...] = signal to cut-off) 0.01 <1.0 0 [facility] HospitalIron and Iron binding capacity panel - Serum or Plasma 2018-01-20 07:36:00* Test Item Value Reference Range Interpretation Comments iron, total (test code = iron, total) 79 mcg/dL 45-160 iron binding capacity (test code = iron binding capacity) 28 1 mcg/dL (calc) 250-450 % saturation (test code = % saturation) 28 % (calc) 11-50 [facility] HospitalHemoglobin A1c/Hemoglobin.total in Hkwaw2747-88-46 06:38:00* Test Item Value Reference Range Interpretation Comments hemoglobin A1C (test code = hemoglobin A1C) 8.3 % of total HGB <5.7 H EAG (mg/dL) (test code = EAG (mg/dL)) 192 (calc) EAG (mmol/L) (test code = EAG (mmol/L)) 10.6 (calc) [facility] HospitalZddoxdktiocznsjpjvunrkfiz1912-83-63 00:14:00* Test Item Value Reference Range Interpretation Comments Rate & Rhythm (test code = Rate & Rhythm) 55/min, RRR QRS (test code = QRS) DC Interval (test code = DC Interval) QRS Duration (test code = QRS Duration) QT Interval (test code = QT Interval) [facility] HospitalComprehensive metabolic 2000 panel - Serum or [...] gap (test code = anion gap) [facility] - Serum or [...] gap (test code = anion gap) 11 [facility] Auto Differential panel - Lkysv9316-67-55 16:56:00 * Test Item Value Reference Range [...] (test code = baso#) 0.08 x10*3/?L 0.01-0.08 [facility] W Auto Differential panel - Kntlq6352-05-79 16:56:00 * Test Item Value Reference Range [...] (test code = baso#) 0.08 x10*3/?L 0.01-0.08 [facility] HospitalHemoglobin A1c/Hemoglobin.total in Mdkhh9619-58-36 16:07:00* Test Item Value Reference Range Interpretation Comments A1C w/EAG (test code = A1C w/EAG) 8.8 % 1.0-5.7 H average blood glucose (test code = average blood glucose) 206 mg/dL [facility] HospitalHemoglobin A1c/Hemoglobin.total in Hafxf4199-48-35 16:07:00* Test Item Value Reference Range Interpretation Comments A1C w/EAG (test code = A1C w/EAG) 8.8 % 1.0-5.7 H average blood glucose (test code = average blood glucose) 206 mg/dL [facility] HospitalComprehensive metabolic 1999 panel - Serum or [...] (test code = anion gap) 13 calc [facility] HospitalLipid 1995 panel - Serum or Laqnea6605-37-07 09:17:00* Test Item Value Reference Range Interpretation [...] code = LDL calc.) 88 mg/dL 0-130 [facility]S HospitalThyrotropin [Units/volume] in Serum or Xklmqa3838-46-65 09:17:00* Test Item Value Reference Range Interpretation Comments TSH (test code = TSH) 0.980 uIU/mL 0.350-4.940 [facility] HospitalComprehensive metabolic 1999 panel - Serum or [...] (test code = anion gap) 13 calc [facility] HospitalLipid 1995 panel - Serum or Gozdxf4528-70-12 09:17:00* Test Item Value Reference Range Interpretation [...] code = LDL calc.) 88 mg/dL 0-130 [facility] HospitalThyrotropin [Units/volume] in Serum or Svbfio0041-90-10 09:17:00* Test Item Value Reference Range Interpretation Comments TSH (test code = TSH) 0.980 uIU/mL 0.350-4.940 [facility] HospitalHemoglobin A1c/Hemoglobin.total in Tzwum3773-07-13 16:58:00* Test Item Value Reference Range Interpretation Comments A1C w/EAG (test code = A1C w/EAG) 7.6 % 1.0-5.7 H average blood glucose (test code = average blood glucose) 171 mg/dL [facility] HospitalHemoglobin A1c/Hemoglobin.total in Hhliv9663-61-40 16:58:00* Test Item Value Reference Range Interpretation Comments A1C w/EAG (test code = A1C w/EAG) 7.6 % 1.0-5.7 H average blood glucose (test code = average blood glucose) 171 mg/dL [facility] W Auto Differential panel - Cfitp5817-48-90 08:28:00 * Test Item Value Reference Range Interpretation Comments white blood cell count (test code = white blood cell count) [facility] W Auto Differential panel - Fuklt5801-69-43 08:28:00 * Test Item Value Reference Range Interpretation Comments white blood cell count (test code = white blood cell count) [facility]
--- OUTSIDE RECORDS SUMMARY | 2020-06-21 13:00 | XMS REPORT | Clinical Summary ---
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 Start Date Occupation Not on [...] Comments Vital Sign 118/57 01/01/2020 1:43 PM PLASTIC PANEL INSTALLER Blood Pressure 56 01/01/2020 1:43 PM PLASTIC PANEL INSTALLER Pulse 36.6 C (97.8 F) 01/01/2020 1:43 PM PLASTIC PANEL INSTALLER Temperature 20 01/01/2020 1:43 PM PLASTIC PANEL INSTALLER Respiratory Rate 97% 01/01/2020 1:43 PM PLASTIC PANEL INSTALLER Oxygen Saturation - - Inhaled Oxygen Concentration 113 kg (250 lb) 05/28/2020 3:45 PM CDT Weight 160 cm (5' 3") 05/28/2020 3:45 PM CDT Height 44.29 05/28/2020 3:45 PM CDT Body Mass Index Plan of Treatment Care Team Description Date Type Specialty Mureil Diamond MD [address] [place], [place] [id number] 08/08/2020 Hospital Obstetrics and Gyne cology Encounter HeldMuriel MD [address] [place], [place] [id number] HYSTEROSCOPY, WITH DILATION AND CURETTAG E OF [...] VW Routine 01/01/2020 Preop testing 3:32 PM PLASTIC PANEL INSTALLER ECG PRE/POST OP Routine 01/01/2020 Pre-op testing 2:40 PM PLASTIC PANEL INSTALLER ESTIMATED GFR Routine 01/01/2020 2:11 PM PLASTIC PANEL INSTALLER HEMOGLOBIN A1C Routine 01/01/2020 Pre-op testing 2:11 PM PLASTIC PANEL INSTALLER TYPE AND SCREEN Routine 01/01/2020 Pre-op testing 2:11 PM PLASTIC PANEL INSTALLER PROTHROMBIN TIME WITH INR Routine 01/01/2020 Pre- op testing 2:11 PM PLASTIC PANEL INSTALLER PARTIAL THROMBOPLASTIN Routine 01/01/2020 Pre-op testing TIME (PTT) 2:11 PM PLASTIC PANEL INSTALLER BASIC METABOLIC PANEL Routine 01/01/2020 Pre-op t esting 2:11 PM PLASTIC PANEL INSTALLER CBC HEMOGRAM Routine 01/01/2020 Pre-op testing 2:11 PM PLASTIC PANEL INSTALLER US PELVIC TRANSVAGINAL Routine 12/08/2019 PMB (po stmenopausal 9:44 AM PLASTIC PANEL INSTALLER bleeding) US PELVIC TRANSABDOMINAL Routine 12/08/2019 PMB ( postmenopausal 9:44 AM PLASTIC PANEL INSTALLER bleeding) SURGICAL PATHOLOGY Routine 12/05/2019 PMB (postme nopausal REQUEST 2:16 PM PLASTIC PANEL INSTALLER bleeding) PAP IG (IMAGE GUIDED) Routine 12/05/2019 Encounte r for routine 2:14 PM PLASTIC PANEL INSTALLER gynecologic examination in Medicare patient OCCULT BLOOD, STOOL Routine 12/05/2019 Special sc reening for 9:51 AM PLASTIC PANEL INSTALLER malignant neoplasms, colon [place] BIOPSY OF UTERUS Routine 12/05/2019 PMB (postm enopausal LINING 8:30 AM PLASTIC PANEL INSTALLER bleeding) after 06/21/2019 Results * XR Cervical [...] lesion(s) is not seen. Performing Organization Address [facility] Ph one Number [facility] [address] [place] [address] * XR Shoulder 2+ Vw Right (05/28/2020 4:03 PM CDT) Specimen Impressions Performed At Negative shoulder. [facility] Narrative Performed At [facility] FINDINGS: Four views were obtained of the right shoulder. The bones are intact and anatomically aligned. The ac romioclavicular and glenohumeral joints appear normal. The bones, joints , and soft tissues appear normal. The visualized lung is clear. Performing Organization Address [facility] Ph one Number [facility] [address] [place] [address] * XR Lumbar Spine 2 Or 3 Vw (04/10/2020 10:42 AM CDT) Specimen Narrative Performed At [facility] 2v lumbar spine. I personally ordered a nd reviewed the imaging. Indication: pain, assessment of degener ative disc disease X-rays demonstrate small listhesis of L 4 on L5. Disc heights maintained. Performing Organization Address [facility] Ph one Number [facility] [address] [place] [address] * XR Hip 2-3 View Left (04/10/2020 9:42 AM CDT) Specimen Narrative Performed At [facility] AP pelvis, 2v left hip. I personally or dered and reviewed the imaging. Indication: pain, assessment of joint d isease X-rays demonstrate no significant degen erative joint disease, fracture, or dislocation. Mild acetabular profunda. Performing Organization Address [facility] one Number [facility] [address] [place] [address] * XR Chest 2 Vw (01/01/2020 3:32 PM PLASTIC PANEL INSTALLER) Specimen Narrative Performed At EXAMINATION: XR CHEST 2 VW [facility] CLINICAL HISTORY: 64 years Female Z01 .818 Encounter for other preprocedural examination, PREOP COMPARISON: October 29 IMPRESSION: Cardiomediastinal silhouette is unchang ed. Atelectasis in the lung bases Age related changes in the osseous stru ctures. Old healed right posterior rib fractures . [id number] Procedure Note Interface, Radiology Results Incoming - 01/01/2020 3:39 PM PLASTIC PANEL INSTALLER EXAMINATION: XR CHEST 2 VW CLINICAL HISTORY: 64 years Female Z01.818 Encounter for other preprocedural examination, PREOP COMPARISON: October 29 IMPRESSION: Cardiomediastinal silhouette is unchanged. Atelectasis in the lung bases Age related changes in the osseous structures. Old healed right posterior rib fractures . [facility]-[id number] Performing Organization Address [facility] one Number [facility] [address] [place] [address] * ECG Pre/Post Op (01/01/2020 2:40 PM PLASTIC PANEL INSTALLER) Ventricular 54 [facility] MUSE rate Atrial rate 54 [facility] MUSE WA interval 128 [facility] MUSE QRSD interval 92 [...] is n ot available. Performing Organization Address [facility] one Number [facility] [address] [place] [address] * Estimated GFR (01/01/2020 2:11 PM PLASTIC PANEL INSTALLER) Pathologist [facility] Estimated GFR 75 mL/min/1.73 m2 [place] Comment: VOODOO [facility] HOSPITAL Interpretation G1 >=90 Normal or high [...] 2014. Specimen Plasma specimen Performing Organization Address City/[facility] Ph one Number [facility] DEPARTMENT OF [address] [place] [address] PATHOLOGY AND [facility] MEDICINE [address] * Partial thromboplastin time, activated (01/01/2020 2:11 PM PLASTIC PANEL INSTALLER) Pathologist [facility] PTT 37.5 (H) 23.0 - 36.0 sec [place] Comment: VOODOO PTT therapeutic range for HOSPITAL unfractionated heparin is 61.0-112.0 seconds which corresponds to Anti-Xa 0.3-0.7 U/ml. Specimen Blood Performing Organization Address [facility] Ph one Number [facility] DEPARTMENT OF [address] [place] [address] PATHOLOGY AND [facility] MEDICINE [address] * Prothrombin time with INR (01/01/2020 2:11 PM PLASTIC PANEL INSTALLER) [facility] Prothrombin 13.9 11.5 - 14.5 sec [facility] INR 1.1 [place] Comment: VOODOO The International Normalized HOSPITAL Ratio (INR) is a therapeutic monitoring tool for patients who are stable on oral anticoagulant therapy. An INR of 2.0-3.0 is suggested for deep vein thrombosis/pulmonary embolism. Specimen Blood Performing Organization Address [facility] Ph one Number [facility] DEPARTMENT OF [address] [place] [address] PATHOLOGY AND GENOMIC MEDICINE [address] * CBC hemogram (01/01/2020 2:11 PM PLASTIC PANEL INSTALLER) [facility] WBC 6.51 4.50 - 11.00 k/uL [facility] RBC 4.41 4.20 - 5.50 m/uL [facility] HGB 13.4 12.0 - 16.0 g/dL [facility] HCT 42.2 37.0 - 47.0 % [facility] MCV 95.7 82.0 - 100.0 fL [facility] MCH 30.4 27.0 - 34.0 pg [facility] MCHC 31.8 31.0 - 37.0 g/dL [facility] RDW - SD 48.1 37.0 - 55.0 fL [facility] MPV 11.4 8.8 - 13.2 fL [facility] Platelet count 226 150 - 400 k/uL [facility] Nucleated RBC 0.00 /100 WBC [facility] Specimen Blood Performing Organization Address City/[facility] Ph one Number [facility] DEPARTMENT OF [address] [place] [address] PATHOLOGY AND GENOMIC MEDICINE [address] * Type and screen (01/01/2020 2:11 PM PLASTIC PANEL INSTALLER) Pathologist [facility] ABO grouping O [facility] Rh type POS [facility] Antibody screen NEG [place] (gel) [facility] Specimen Blood Performing Organization Address City/[facility] Ph one Number [facility] DEPARTMENT OF [address] [place] [address] PATHOLOGY AND GENOMIC MEDICINE [address] * Hemoglobin A1c (01/01/2020 2:11 PM PLASTIC PANEL INSTALLER) Pathologist [facility] Hemoglobin A1C 5.7 (H) 4.0 - 5.6 % [place] Comment: VOODOO HbA1c cutoffs for diagnosing HOSPITAL diabetes: 4.0% - 5.6% = normal 5.7% - 6.4% = increased risk for diabetes (prediabetes)9 >=6.5% = diabetes9 Goals for glycemic control (ADA 2016) < 7.0% Target for non adults with diabetes. More or less stringent targets may be appropriate for individual patients. <7.5% Target for Children and adolescents with type 1 diabetes. Specimen Blood Performing Organization Address City/[facility] Ph one Number [facility] DEPARTMENT OF [address] [place] [address] PATHOLOGY AND GENOMIC MEDICINE [address] * Basic metabolic panel (01/01/2020 2:11 PM PLASTIC PANEL INSTALLER) Sodium 140 135 - 148 mEq/L [facility] Potassium 3.8 3.5 - 5.0 mEq/L [facility] Chloride 99 98 - 112 mEq/L [facility] CO2 27 24 - 31 mEq/L [facility] Anion gap 14@ANIO 7 - 15 mEq/L [facility] BUN 17 8 - 23 mg/dL [facility] Creatinine 0.82 0.50 - 0.90 mg/dL [facility] Glucose 127 (H) 65 - 99 mg/dL [facility] Calcium 9.4 8.8 - 10.2 mg/dL [facility] Specimen Plasma specimen Performing Organization Address City/State/Zipcode Ph one Number [facility] DEPARTMENT OF [address] [place] [address] PATHOLOGY AND GENOMIC MEDICINE [address] * US Pelvic Transabdominal (12/08/2019 9:44 AM PLASTIC PANEL INSTALLER) Specimen Narrative Performed At EXAMINATION: US PELVIC [...] of postmenopausal bleeding, endometrial biopsy is advised. [id number] Dictated and approved by radiology resi dent/fellow: Artur Gomez M.D. I, Misa Corea MD, personally revie wed the images and resident's/fellow's findings and agree with the final repor t. Procedure Note Interface, Radiology Results Incoming - 12/08/2019 12:40 PM PLASTIC PANEL INSTALLER EXAMINATION: US PELVIC TRANSABDOMINAL, US PELVIC TRANSVAGINAL [...] of postmenopausal bleeding, endometrial biopsy is advised. [id number] Dictated and approved by workforce development vice president/fellow: Artur Gomez M.D. I, Misa Corea MD, personally reviewed the images and resident's/fellow's findings and agree with the final report. Performing Organization Address City/State[facility] Ph one Number [facility] [address] [place] [address] * US Pelvic Transvaginal (12/08/2019 9:44 AM PLASTIC PANEL INSTALLER) Specimen Narrative Performed At EXAMINATION: US PELVIC TRANSABDOMINAL, US PELVIC TR ANSVAGINAL [facility] CLINICAL HISTORY: N95.0 Postmenopausa l bleeding, [...] of postmenopausal bleeding, endometrial biopsy is advised. [id number] Dictated and approved by radiology resi dent/fellow: Artur Gomez M.D. I, Misa Corea MD, personally revie wed the images and resident's/fellow's findings and agree with the final repor t. Procedure Note Interface, Radiology Results Incoming - 12/08/2019 12:40 PM PLASTIC PANEL INSTALLER EXAMINATION: US PELVIC TRANSABDOMINAL, US PELVIC TRANSVAGINAL [...] of postmenopausal bleeding, endometrial biopsy is advised. [id number] Dictated and approved by workforce development vice president/fellow: Artur Gomez M.D. I, Misa Corea MD, personally reviewed the images and resident's/fellow's findings and agree with the final report. Performing Organization Address City/State[facility] Ph one Number [facility] [address] [place] [address] * Surgical pathology request (12/05/2019 2:16 PM PLASTIC PANEL INSTALLER) Material Comment [facility] Submitted Comment: Material submitted: [...] Local CPT: Comment [facility] Comment: CPT . 274837 Specimen Tissue Narrative Performed At [facility] [address] Tile Designer: Ethan Rico MD, Phone: [phone] Performing Organization Address [facility] Ph one Number [facility] * Pap IG (Image Guided) (12/05/2019 2:14 PM PLASTIC PANEL INSTALLER) Diagnosis Comment [facility] Comment: NEGATIVE FOR INTRAEPITHELIAL LESION OR MALIGNANCY. THIS SPECIMEN WAS RESCREENED PART OF OUR [employer] PIPE SUPERVISOR PROGRAM. Specimen Comment [facility] adequacy Comment: Satisfactory for evaluation. Endocervical component may not be distinguished in cases of atrophy. Performed by: CommentComment: Nela Bangura Master Plumber (ASC) QC reviewed by: CommentComment: NATE Pereira Master Plumber (ASCP) Comment . [facility] Note: Comment [facility] [...] Stool Narrative Performed At Performed at: - [address] [address] Tile Designer: Ethan Rico MD, Phone: [phone] Performed at: - [facility] [employer] [address] [place] [address] Tile Designer: Ethan Rico MD, Phone: [phone] Specimen Comment: Source.............Ce rvix;Endocervix Specimen Comment: No. of containers..01 ThinPrep Vial Performing Organization Address [facility]/Zipcode Ph one Number [facility] 02 * Occult blood, stool (12/05/2019 9:51 AM PLASTIC PANEL INSTALLER) Occult blood, Negative Negative [facility] stool Specimen Stool Narrative Performed At Performed at: [facility] [address] [place] [address] 3143 Tile Designer: Ethan Rico MD, Phone: [phone] Performing Organization Address City/State/Zipcode Ph one Number [facility] * Endometrial biopsy (12/05/2019 8:30 AM PLASTIC PANEL INSTALLER) Narrative Performed At Muriel Diamond MD 12/05/2019 [...] AND resent [place] B Commercial COMMERCIAL MISC [facility] xxxxxxxxxx 2019-P MEDICARE resent SUPPLEMENT Advance Directives For more information, please contact: [phone] 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
[2020-06-21] MEDS ORDERED: BUPIVACAINE 0.25%/EPI 30ML SDV INJ ONE (14:22)
[2020-06-21] MEDS ORDERED: OMEPRAZOLE40 MG (14:34)
[2020-06-21] MEDS ORDERED: ADVAIR 100-501 EACH (14:35)
[2020-06-21] MEDS ORDERED: ATENOLOL50 MG (14:36)
[2020-06-21] MEDS ORDERED: ASPIRIN81 MG (14:36)
[2020-06-21] MEDS ORDERED: FISH OIL 1,0001 EAC2 (14:37)
[2020-06-21] MEDS ORDERED: IMITREX25 MG (14:38)
[2020-06-21] MEDS ORDERED: HYDROCHLOROTHIA25 MG (14:38)
[2020-06-21] MEDS ORDERED: LISINOPRIL10 MG PO (14:39)
[2020-06-21] MEDS ORDERED: JANUVIA100 MG PO (14:39)
[2020-06-21] MEDS ORDERED: MONTELUKAST SOD10 MG PO (14:40)
[2020-06-21] MEDS ORDERED: PIOGLITAZONE HC45 MG PO (14:40)
[2020-06-21] MEDS ORDERED: LUMIGAN2.5 M1 OP (14:40)
[2020-06-21] MEDS ORDERED: ZOFRAN8 MG (14:43)
[2020-06-21] MEDS ORDERED: TERBINAFINE HC250 MG PO (14:43)
[2020-06-21] MEDS ORDERED: tumeric curcumin (14:50)
[2020-06-21] MEDS ORDERED: [UNRECOGNIZED DRUG - OTHER] (14:50)
[2020-06-21] MEDS ORDERED: ONE DAILY COMP1 EACH (14:50)
[2020-06-21] MEDS ORDERED: B COMPLEX1 EACH (14:50)
[2020-06-21] MEDS ORDERED: FENTANYL CITRATE/PF 100MCG/2 ML INJ ONE (15:00)
[2020-06-21] MEDS ORDERED: HYDROMORPHONE 1MG/1ML INJ IV PRN (16:45)
[2020-06-21] MEDS ORDERED: HYDROCODONE/APAP 7.5MG-325MG 1 EA TAB PO PRN (16:45)
--- NOTE | 2020-06-21 17:29 | Operative Report ---
DATE OF PROCEDURE: SURGEON: Misael Armas MD PREOPERATIVE DIAGNOSES: 1. Acute appendicitis. 2. Morbid obesity. POSTOPERATIVE DIAGNOSES: 1. Acute appendicitis. 2. Morbid obesity. PROCEDURE PERFORMED: Laparoscopic appendectomy. DOG SHOW JUDGE: Michel Cardoso, licensed rn surgical pcu. ESTIMATED BLOOD LOSS: Minimal. DRAINS: None. COMPLICATIONS: None. INDICATIONS AND FINDINGS: A 65-year-old morbidly obese female, who has been having intermittent abdominal pain for several months. The patient sometimes was poorly localized. The patient was seen by GI and underwent upper and lower endoscopies and no source of the pain was found. Today, the patient presented to the emergency room complaining of constipation and persistent pain in the lower abdomen. She underwent a CT scan of the abdomen with high-resolution and revealed acute appendicitis. INTRAOPERATIVE FINDINGS: Acute appendicitis. DESCRIPTION OF PROCEDURE: With the patient lying on the operative table in the supine position after administration of general anesthesia, she was prepped and draped for laparoscopic appendectomy. The procedure was begun by establishing the pneumoperitoneum in the right upper quadrant and midclavicular line because of very large body habitus. After we created a pneumoperitoneum using the saline drop test up to 15 mm, then we introduced a 5 mm trocar in that location and then we placed under direct vision 11/12 trocar in the umbilical site. We had to put a bariatric 5 mm trocar in the right lower quadrant because the other one regular 5 mm was too short. After we did that, we performed laparoscopy. We found the tip of the appendix and then we mobilized the colon until we identified the cecal junction. We had to initially transect the mesoappendix to be able to get to the cecal appendiceal junction. Once we did that after firing the Endo-SAL white load 2 times and using electrocautery, we saw the appendiceal junction where the cecum was soft. We identified fully the terminal ileum and its junction with the cecum and then only we fired the Endo-SAL with a blue load, transecting the appendix and the cecum partially to obtain secure closure. After we did that, we placed the appendix in an Endobag and removed through the umbilical port. After we did that, we inspected again the operative field after ascertaining, there was no bleeding, no bowel injury, no fecal spillage, and the effluent fluid was clear. We released the trocars and the pneumoperitoneum, and closed the wound using 0 Vicryl for the umbilical fascia and 3-0 Vicryl in that location and then the remaining port sites which were 5 mm were closed using adilia. A 0.25% Marcaine with epinephrine was utilized as local block at the end of the case. The patient tolerated the procedure well and was taken to recovery room in stable condition. MD MARION Holder/[facility] /[id number]
[2020-06-21] MEDS: METRONIDAZOLE 500MG/NS 100ML 100 ML IV SCH ×2 (18:30→23:16)
[2020-06-21] MEDS: DEXTROSE 5%/LACTATED RINGERS 1,000 ML IV SCH (18:30)
[2020-06-21] MEDS ORDERED: ROCURONIUM BROMIDE 10 MG/ML 5ML VIAL IV ONE (19:39)
[2020-06-21] MEDS ORDERED: DEXAMETHASONE SOD PHOS INJ 4 MG/ML VIAL ONE (19:39)
[2020-06-21] MEDS ORDERED: PROPOFOL IV EMULSION 10 MG/ML 20 ML VIAL ONE (19:39)
[2020-06-21] MEDS ORDERED: ONDANSETRON HCL INJ 2MG/ML 2ML 2 MG/ML VIAL ONE (19:39)
[2020-06-21] MEDS ORDERED: SEVOFLURANE INHAL SOLN 250 ML PEN BTL ONE (19:39)
[2020-06-21] MEDS ORDERED: NEOSTIGMINE 1 MG/ML 10ML VIAL ONE (19:39)
[2020-06-21] MEDS ORDERED: LIDOCAINE HCL 2% LOCAL INJ 5 ML SDV VIAL INJ ONE (19:39)
[2020-06-21] MEDS ORDERED: GLYCOPYRROLATE INJ 0.2 MG/ML VIAL ONE (19:39)
[2020-06-21] MEDS ORDERED: LABETALOL HCL 5 MG/ML 20ML VIAL ONE (19:39)
[2020-06-22] VITALS (10 sets, daily range): BP systolic 104–142; BP diastolic 51–67
[2020-06-22] MEDS ORDERED: HYDROMORPHONE 1MG/1ML INJ IV PRN (00:15)
[2020-06-22] MEDS: CEFTRIAXONE SOD 1 GM/NS 50 ML 50 ML IV SCH (00:22)
--- NOTE | 2020-06-22 00:32 | NUR ---
Spoke to Dr. Cotto regarding patient's fever of 100.1. Received orders for Tylenol 650 mg Q6H PRN.
[2020-06-22] MEDS: ACETAMINOPHEN 325 MG TAB PO PRN (00:44)
--- NOTE | 2020-06-22 01:53 | NUR ---
Resumed care of patient. Patient awake and resting in bed, respirations even and unlabored on room air, no s/s of distress at this time. Sage patent and draining clear yellow urine to gravity, bag hung below bladder. Bed locked and in lowest position, side rails upx3, call light placed within reach. All safety measures in place.
[2020-06-22] MEDS: DEXTROSE 5%/LACTATED RINGERS 1,000 ML IV SCH ×3 (04:03→20:06)
[2020-06-22 05:07] LABS: BASOPHILS % 0.2 % (0.0-1.0); HEMATOCRIT 35.1 % (34.2-44.1); HEMOGLOBIN 11.6 g/dL (12.0-16.0); LYMPHOCYTES % 9.3 % (18.0-39.1); MEAN CORPUSCULAR HEMOGLOBIN 30.7 pg (28-32); MEAN CORPUSCULAR VOLUME 92.9 fL (81-99); MONOCYTES % 8.6 % (4.4-11.3); NEUTROPHILS % 81.2 % (38.7-80.0); PLATELET COUNT 197 x10e3/uL (140-360); RED BLOOD COUNT 3.78 x10e6/uL (3.6-5.1); RED CELL DISTRIBUTION WIDTH 12.9 % (11.7-14.4)
[2020-06-22] MEDS: METRONIDAZOLE 500MG/NS 100ML 100 ML IV SCH ×3 (05:14→18:37)
[2020-06-22 05:20] LABS: ALANINE AMINOTRANSFERASE 16 IU/L (0-55); ALKALINE PHOSPHATASE 66 IU/L (40-150); ANION GAP 13.7 mmol/L (8-16); BLOOD UREA NITROGEN 8 mg/dL (7-26); BUN/CREATININE RATIO 10 (6-25); CALCIUM 8.7 mg/dL (8.4-10.2); CARBON DIOXIDE 25 mmol/L (22-29); CHLORIDE 106 mmol/L (98-107); CREATININE, SERUM 0.77 mg/dL (0.57-1.11); EST GLOMERULAR FILTRATION RATE > 60 ML/MIN (60-); GLUCOSE 146 mg/dL (74-118); POTASSIUM 3.7 mmol/L (3.5-5.1); SODIUM 141 mmol/L (136-145)
--- NOTE | 2020-06-22 12:18 | NUR ---
Sage removed without difficult. Pt tolerated procedure well. DTV
[2020-06-22 14:35] LABS: BASOPHILS % 0.4 % (0.0-1.0); EOSINOPHILS % 0.2 % (0.0-6.0); HEMATOCRIT 39.7 % (34.2-44.1); HEMOGLOBIN 12.6 g/dL (12.0-16.0); LYMPHOCYTES # (AUTO) 1.9 (1.0-3.2); LYMPHOCYTES % 19.1 % (18.0-39.1); MEAN CORPUSCULAR HEMOGLOBIN 30.4 pg (28-32); MEAN CORPUSCULAR HGB CONC 31.7 g/dL (31-35); MEAN CORPUSCULAR VOLUME 95.7 fL (81-99); MONOCYTES # (AUTO) 0.8 (0.2-0.8); MONOCYTES % 8.5 % (4.4-11.3); NEUTROPHILS # (AUTO) 6.9 (2.1-6.9); NEUTROPHILS % 71.3 % (38.7-80.0); PLATELET COUNT 189 x10e3/uL (140-360); RED BLOOD COUNT 4.15 x10e6/uL (3.6-5.1); RED CELL DISTRIBUTION WIDTH 13.1 % (11.7-14.4)
[2020-06-22 14:52] LABS: ANION GAP 16.7 mmol/L (8-16); BLOOD UREA NITROGEN 8 mg/dL (7-26); BUN/CREATININE RATIO 10 (6-25); CARBON DIOXIDE 24 mmol/L (22-29); CHLORIDE 105 mmol/L (98-107); CREATININE, SERUM 0.77 mg/dL (0.57-1.11); EST GLOMERULAR FILTRATION RATE > 60 ML/MIN (60-); GLUCOSE 88 mg/dL (74-118); POTASSIUM 3.7 mmol/L (3.5-5.1); SODIUM 142 mmol/L (136-145)
--- NOTE | 2020-06-22 19:34 | History and Physical ---
CHIEF COMPLAINT: Right lower quadrant abdominal pain. HISTORY OF PRESENT ILLNESS: A 65-year-old patient, who reportedly had right lower quadrant abdominal pain, that began 2 to 3 days prior to arrival to the hospital. The patient reports initially was complaining of epigastric pain, in which she was seen a GI specialist for and is on some acid reflux medications, initially thought that was an etiology, but progressively got worse, in which she started began to complain of left lower quadrant abdominal pain that did not radiate to the right lower quadrant. She reports some decreased oral intake and some nausea. She presented to [facility] with CT imaging consistent with acute appendicitis. The patient is seen and evaluated at bedside on the medical floor. She is currently doing well with no other issues at this time. REVIEW OF SYSTEMS: Pertinent positives; right lower quadrant abdominal pain, nausea, decreased oral intake. The rest of the 14-point review of systems have been reviewed with the patient and are negative. ALLERGIES: TO CODEINE, GABAPENTIN, MONOSODIUM GLUTAMATE, TERBINAFINE. HOME MEDICATIONS: Aspirin, atenolol, Advair, hydrochlorothiazide, lisinopril, Singulair, omeprazole, pioglitazone, Januvia, sumatriptan, multivitamin, and fish oil. PAST MEDICAL HISTORY: Hypertension, COPD, diabetes. PAST SURGICAL HISTORY: Recent status post appendectomy. FAMILY HISTORY: None. SOCIAL HISTORY: No drugs. No alcohol. Does not smoke. Good social support. PHYSICAL EXAMINATION: VITAL SIGNS: Temperature is 97.8, pulse 66, respiratory rate is 18, blood pressure 133/64, pulse ox 99% on room air. GENERAL: No acute distress. Alert and oriented x3. Cooperative on examination. HEENT: Head is normocephalic and atraumatic. Eyes; pupils are equal, round, reactive to light bilaterally. Extraocular movements are intact bilaterally. Throat, no evidence of erythema or exudates in the posterior pharynx. Has poor dentition. NECK: Supple. Good range of motion. PULMONARY: Clear to auscultation bilaterally. No wheezing, rales, or rhonchi. No crackles appreciated. CARDIOVASCULAR: Positive S1 and S2. No murmurs, rubs, or gallops appreciated. ABDOMEN: Currently, she is asymptomatic. She is nontender to palpation, but was tender to palpation in the right lower quadrant. SKIN: Intact, warm to touch. Good cap refill. PSYCHIATRIC: Normal affect and mood. EXTREMITIES: No edema. Good range of motion throughout. MUSCULOSKELETAL: Strength is 5/5 throughout. LABORATORY FINDINGS: Show white count 11, hemoglobin 11.6, hematocrit is 35, and platelets of 197. Chemistry; sodium 141, potassium 3.7, chloride 106, bicarb 25, anion gap of 13, BUN is 8, creatinine is 0.77, glucose is 146, calcium is 8.7, total bilirubin is 0.4, AST 18, ALT 16, and alkaline phosphatase 66. Troponins are negative. Albumin is 3. Amylase 124, lipase 75. Urinalysis negative. Serology; coronavirus pending. MICROBIOLOGY: Urine culture showed no growth to date. IMAGING STUDIES: CT abdomen and pelvis shows early acute appendicitis, dilated appendix at the diameter 12 mm. Chest x-ray shows no focal pneumonia or pulmonary edema. IMPRESSION: 1. Acute appendicitis, status post laparoscopic appendectomy. 2. Type 2 diabetes. 3. Hypertension. PLAN: At this time, the patient is doing well postoperatively. Continue with IV fluids. She is on a full liquid diet, pain control. Encourage ambulation. Lovenox for DVT prophylaxis. Get a.m. labs. I spoke with General Surgery, the patient can potentially be discharged tomorrow. We will talk with the nurse about reconciling the medications. Currently, this list does not seem to be updated. MD DIMITRI Genao/FARIBA /[id number]
--- NOTE | 2020-06-22 19:40 | NUR ---
BEDSIDE SHIFT REPORT RECEIVED FROM RN. PT IS ALERT AND ORIENTED X3.RESPIRATIONS ARE REGULAR AND UNLABORED. PT DENIES PAIN. PT VOIDING WITHOUT DIFFICULTY. TROCHAR DRESSING X4 DRY AND INTACT. PIV LEFT FA 20 D5LR INFUSING AT 100 ML/HR. SITE HEALTH. CALL LIGHT WITHIN REACH. BED LOCKED IN LOW POSITION. TOLERATING ICE CHIPS WELL.
[2020-06-23] VITALS (7 sets, daily range): BP systolic 119–142; BP diastolic 60–74
[2020-06-23] MEDS: CEFTRIAXONE SOD 1 GM/NS 50 ML 50 ML IV SCH (00:24)
[2020-06-23] MEDS: METRONIDAZOLE 500MG/NS 100ML 100 ML IV SCH ×3 (01:03→12:37)
[2020-06-23] MEDS: DEXTROSE 5%/LACTATED RINGERS 1,000 ML IV SCH ×2 (05:22→08:47)
[2020-06-23] MEDS: ACETAMINOPHEN 325 MG TAB PO PRN (07:37)
[2020-06-23] MEDS ORDERED: LISINOPRIL 10 MG TAB PO SCH (09:00)
[2020-06-23] MEDS ORDERED: MONTELUKAST SODIUM 10 MG TAB PO SCH (09:00)
[2020-06-23] MEDS ORDERED: CEFDINIR300 MG PO (14:40)
[2020-06-23] MEDS ORDERED: FLAGYL250 MG (14:41)
[2020-06-23] MEDS ORDERED: TYLENOL WITH C1 EACH PO (14:41)
--- NOTE | 2020-06-23 15:37 | NUR ---
discharge went over with patient in great detail about s/s when to call md or come back to ed medication, prescriptions, home meds, interactions reactional allergies and when to call md wound care follow up with md md address and phone number activities, showering, driving, work and all activities for the next week until follow up discharge chart md address and phone number
--- NOTE | 2020-06-23 18:18 | Discharge Summary ---
FINAL DISCHARGE DIAGNOSES: 1. Acute appendicitis, status post laparoscopic appendectomy performed on 06/21/2020. 2. Type 2 diabetes. 3. Hypertension. CONSULTANTS: General Surgery. PHYSICAL EXAMINATION: VITAL SIGNS: Temperature is 97.7, pulse 60, respiratory rate is 19, blood pressure 138/74, and pulse ox 100% on room air. LABORATORY DATA: Show white count 9.7, hemoglobin 12, hematocrit is 39, and platelets of 189. Chemistry; sodium 142, potassium 3.7, chloride 105, bicarb 24, anion gap of 16, BUN is 8, creatinine is 0.77, glucose is 88, and calcium is 9. LFTs within normal range. Troponins were negative. Albumin 4.2. Lipase is 75. Coagulation; PT 13, INR 0.94, and PTT 38.7. Urinalysis was negative. Serologies, coronavirus not detected. MICROBIOLOGY: Urine cultures were negative. IMAGING STUDIES: CT abdomen and pelvis showed early acute appendicitis. Chest x-ray showed no focal pneumonia or pulmonary edema. HOSPITAL COURSE: A 65-year-old female, who came into the ED with complaints of right lower quadrant abdominal pain, found to have acute appendicitis on imaging studies. General Surgery was consulted. The patient was on IV antibiotics, pain control, and IV fluids. The patient underwent status post laparoscopic appendectomy performed on 06/21/2020, by General Surgery. The patient did well postoperatively with no complaints. She was tolerating clear liquid diet, advanced to regular food with no complaints. She was cleared for discharge by General Surgery. On the day of discharge, vital signs were stable, labs reviewed and stable. The patient was seen, evaluated, and examined thoroughly on the day of discharge. No other complaints. The patient verbalized understanding and agrees to plan of care to follow up accordingly as an outpatient with primary care physician in 1 week and General Surgery in about 7 to 10 days. MEDICATIONS: See medication reconciliation form including oral Omnicef, Flagyl, and Tylenol No. 3. CONDITION: Stable. DIET: Heart healthy. In the event of any worsening symptoms, the patient was advised to come back to the ED for further evaluation. Discharge summary took greater than 35 minutes. MD DIMITRI Genao/MODL /[id number]
== END 2020-06-23 16:12 | disposition home or self-care (01) ==
LOC: ER 08:15 → INTOOBSV 11:53 → ERHOLD 11:53 → MED/SURG 13:19
PROVIDERS: ADMIT Internal Medicine; ATTEND Internal Medicine
DX: K35.80 Unspecified acute appendicitis (principal); E11.9 Type 2 diabetes mellitus without complications; I10 Essential (primary) hypertension; E66.9 Obesity, unspecified; Z68.41 Body mass index [BMI] 40.0-44.9, adult
CPT/HCPCS: 36415 ×3; 44970; 71045; 74177; 80048; 80053 ×2; 81001; 82150; 82550; 82553; 82948 ×3; 83690; 84484; 85025 ×2; 85610; 85730; 87086; 88304; 93005; 99284; C1766; C9113; G0378 ×3; J0500; J0696 ×2; J1100; J2001; J2270; J2405; J2543; J2550; J2704; J2710; J3010; J3490; J7030; J7121 ×3; Q9967; U0002

== ENCOUNTER → 2024-10-02 | Outpatient (REF) | payer OTHER ==
[~2024-10-02] MED LIST: ADVAIR 100-501 EACH; ASPIRIN81 MG; ATENOLOL50 MG; B COMPLEX1 EACH; CEFDINIR300 MG PO; FISH OIL 1,0001 EAC2; FLAGYL250 MG; HYDROCHLOROTHIA25 MG; IMITREX25 MG; IOPAMIDOL 370 MG/ML 100 ML INFUS..BTL INJ ONE; JANUVIA100 MG PO; LISINOPRIL10 MG PO; LUMIGAN2.5 M1 OP; MONTELUKAST SOD10 MG PO; OMEPRAZOLE40 MG; ONE DAILY COMP1 EACH; PIOGLITAZONE HC45 MG PO; TERBINAFINE HC250 MG PO; TYLENOL WITH C1 EACH PO; ZOFRAN8 MG; [UNRECOGNIZED DRUG - OTHER]; tumeric curcumin
[2024-10-02 15:45] LABS: CREATININE, SERUM 1.02 mg/dL (0.57-1.11)
== END ==
LOC: CT 14:54
PROVIDERS: ATTEND Internal Medicine
DX: R06.02 Shortness of breath (principal); R79.1 Abnormal coagulation profile
CPT/HCPCS: 36415; 71260; 82565; 84520; Q9967